=== PATIENT | male | born 1995 | race Caucasian/White ===

== ENCOUNTER 2016-12-18 23:50 | Emergency (ER) | payer SELFPAY ==
[2016-12-19] VITALS: TEMP 99
[2016-12-19] MEDS ORDERED: KETOROLAC 30 MG/ML 1 ML VIAL IVP STA (00:11)
[2016-12-19 00:21] LABS: Basophils # (A) 0.1 k/uL (0-0.2); Basophils % (A) 0 %; CH 29.9; CHCM 34.9; Eosinophils # (A) 0.4 k/uL (0-0.7); Eosinophils % (A) 3 %; HDW 2.47; HGB 15.6 gm/dL (13.0-17.5); Luc # (Auto) 0.17; Luc % (Auto) 1; Lymphocytes # (A) 2.8 k/uL (1.0-4.8); Lymphocytes % (A) 21 %; MCH 29.9 pg (25.0-35.0); MCHC 34.7 g/dL (31.0-37.0); MCV 86.1 fL (80.0-100.0); Mean Platelet Volume 7.2; Monocytes # (A) 0.7 k/uL (0-1.0); Monocytes % (A) 6 %; Neutrophils # (A) 9.3 k/uL (1.3-7.7); Neutrophils % (A) 69 %; RBC 5.23 m/uL (4.30-5.90); RDW 13.3 % (11.5-15.5); WBC 13.5 k/uL (3.8-10.6); WBC (Perox) 13.64
--- NOTE | 2016-12-19 00:27 | ED ---
Abdominal Pain HPI - General Chief Complaint: Abdominal Pain Stated Complaint: Abd Pain Time Seen by Provider: 12/19/16 00:00 Source: patient, RN notes reviewed, old records reviewed Mode of arrival: ambulatory Limitations: no limitations - History of Present Illness Initial Comments: This is a 21-year-old male presents emergency Department with intermittent left lower quadrant pain. She reports that he's had pain for the past 3 days. Patient reports that will come and go with different movements. He reports that sometimes he will be descending at work and occur. Patient reports that he works at an [employer] line And is always running in on the ago. Patient denies any dysuria or hematuria or changes in bowel movements including constipation or diarrhea. Patient states that he's never had any problems like this in the past. He reports that he is in relatively good health denies any significant past medical history. Patient denies any recent fever, chills, shortness of breath, chest pain, back pain, abdominal pain, nausea vomiting, numbness or tingling, dysuria or hematuria, constipation or diarrhea, headaches or visual changes, or any other current symptoms - Related Data Home Medications Medication Instructions Recorded Confirmed No Known Home Medications [No 12/19/16 12/19/16 Known Home Medications] Allergies Allergy/AdvReac Type Severity Reaction Status Date / Time No Known Allergies Allergy Verified 12/19/16 00:00 Review of Systems ROS Statement: Those systems with pertinent positive or pertinent negative responses have been documented in the HPI. ROS Other: All systems not noted in ROS Statement are negative. Past Medical History Past Medical History: No Reported History History of Any Multi-Drug Resistant Organisms: None Reported Past Surgical History: No Surgical Hx Reported Past Psychological History: Anxiety, Bipolar Smoking Status: Current every day smoker Past Alcohol Use History: Heavy, Occasional Past Drug Use History: Marijuana General Exam - General Exam Comments Initial Comments: Well-appearing 21-year-old male. No distress. Limitations: no limitations General appearance: alert, in no apparent distress Head exam: Present: atraumatic, normocephalic, normal inspection Eye exam: Present: normal appearance, PERRL, EOMI. Absent: scleral icterus, conjunctival injection, periorbital swelling ENT exam: Present: normal exam, mucous membranes moist Neck exam: Present: normal inspection. Absent: tenderness, meningismus, lymphadenopathy Respiratory exam: Present: normal lung sounds bilaterally. Absent: respiratory distress, wheezes, rales, rhonchi, stridor Cardiovascular Exam: Present: regular rate, normal rhythm, normal heart sounds. Absent: systolic murmur, diastolic murmur, rubs, gallop, clicks GI/Abdominal exam: Present: soft, tenderness (Mild left lower quadrant tenderness. Palpation. Patient states that he has no pain at this time without deep palpation.), normal bowel sounds. Absent: distended, guarding, rebound, rigid Extremities exam: Present: normal inspection, full ROM, normal capillary refill. Absent: tenderness, pedal edema, joint swelling, calf tenderness Back exam: Present: normal inspection Neurological exam: Present: alert, oriented X3, CN II-XII intact Psychiatric exam: Present: normal affect, normal mood Skin exam: Present: warm, dry, intact, normal color. Absent: rash Course Vital Signs 12/18/16 23:58 Temperature 99.0 F Pulse Rate 119 H Respiratory 18 Rate Blood Pressure 137/63 O2 Sat by Pulse 97 Oximetry Medical Decision Making - Medical Decision Making This is a 21 mL presenting emergency department with intermittent left lower quadrant pain for the past 2 days. Patient has emergency department tachycardic and heart rate of 119. He reports that he's always this time is probably from walking into the emergency department. Patient has no fever at this time. Patient reports that he has no pain and left lower quadrant at this time. He reports is intermittent will certain movements. He reports he pulled muscle. Discussed with the patient the possibility of being a possible kidney stone or irritation of the bowel. Patient was given IV fluids and urinalysis obtained. Patient's lab work is essentially benign. No evidence of blood in the urine. Mild leukocyte elevation of 13.5. Patient has no tenderness to palpation after reevaluation. Discussed with the patient that given the length of symptoms and ot necessarily concerned with the white blood cell count. Discussed to monitor for any signs of fevers or worsening condition and to return to this facility. Patient agrees with this. Patient is history plan will comply. Return parameters were discussed. Discussed this case with Dr. Henderson. - Lab Data Result diagrams: 12/19/16 00:05 12/19/16 00:05 Lab Results 12/19/16 12/19/16 12/19/16 Range/Units 00:05 00:05 00:05 WBC 13.5 H (3.8-10.6) k/uL RBC 5.23 (4.30-5.90) m/uL Hgb 15.6 (13.0-17.5) gm/dL Hct 45.0 (39.0-53.0) % MCV 86.1 (80.0-100.0) fL MCH 29.9 (25.0-35.0) pg MCHC 34.7 (31.0-37.0) g/dL RDW 13.3 (11.5-15.5) % Plt Count 250 (150-450) k/uL Neutrophils % 69 % Lymphocytes % 21 % Monocytes % 6 % Eosinophils % 3 % Basophils % 0 % Neutrophils # 9.3 H (1.3-7.7) k/uL Lymphocytes # 2.8 (1.0-4.8) k/uL Monocytes # 0.7 (0-1.0) k/uL Eosinophils # 0.4 (0-0.7) k/uL Basophils # 0.1 (0-0.2) k/uL Sodium 140 (137-145) mmol/L Potassium 3.7 (3.5-5.1) mmol/L Chloride 106 (98-107) mmol/L Carbon Dioxide 23 (22-30) mmol/L Anion Gap 11 mmol/L BUN 24 H (9-20) mg/dL Creatinine 0.90 (0.66-1.25) mg/dL Est GFR (MDRD) Af Amer >60 (>60 ml/min/1.73 sqM) Est GFR (MDRD) Non-Af >60 (>60 ml/min/1.73 sqM) Glucose 94 (74-99) mg/dL Calcium 9.4 (8.4-10.2) mg/dL Total Bilirubin 0.4 (0.2-1.3) mg/dL AST 47 (17-59) U/L ALT 46 (21-72) U/L Alkaline Phosphatase 78 (38-126) U/L Total Protein 6.8 (6.3-8.2) g/dL Albumin 4.5 (3.5-5.0) g/dL Amylase 42 (30-110) U/L Lipase 87 (23-300) U/L Urine Color Yellow Urine Appearance Clear (Clear) Urine pH 5.5 (5.0-8.0) Ur Specific [place] 1.024 (1.001-1.035) Urine Protein Negative (Negative) Urine Glucose (UA) Negative (Negative) Urine Ketones 1+ H (Negative) Urine Blood Negative (Negative) Urine Nitrite Negative (Negative) Urine Bilirubin Negative (Negative) Urine Urobilinogen <2.0 (<2.0) mg/dL Ur Leukocyte Esterase Negative (Negative) Disposition Clinical Impression: Intermittent left lower quadrant abdominal pain Disposition: HOME SELF-CARE Condition: Good Instructions: Abdominal Pain (ED) Additional Instructions: rest, increase fluids. Monitor for any signs of fever or worsening symptoms or return to emergency department. Follow-up with her primary care provider. Also take Motrin or Tylenol for pain. Referrals: None,Stated [Primary Care Provider] - 1-2 days Leticia Davison MD [STAFF PHYSICIAN] - 1-2 days Time of Disposition: 01:09
[2016-12-19 00:29] LABS: Appearance,Urine Clear (Clear); Bilirubin,Urine Negative (Negative); Glucose,Urine (UA) Negative (Negative); Ketones,Urine 1+ (Negative); Leukocyte Esterase,Urine Negative (Negative); Nitrite,Urine Negative (Negative); PH, Urine 5.5 (5.0-8.0); Protein,Urine Negative (Negative); Specific Gravity,Urine 1.024 (1.001-1.035); UA Billing (MACRO vs. MICRO) CHEM; Urobilinogen,Urine <2.0 mg/dL (<2.0)
[2016-12-19 00:30] LABS: ALT 46 U/L (21-72); AST 47 U/L (17-59); Alkaline Phosphatase 78 U/L (38-126); Amylase 42 U/L (30-110); Anion Gap 11 mmol/L; Blood Urea Nitrogen 24 mg/dL (9-20); Calcium 9.4 mg/dL (8.4-10.2); Carbon Dioxide 23 mmol/L (22-30); Chloride 106 mmol/L (98-107); Glucose 94 mg/dL (74-99); Non-African American GFR(MDRD) >60 (>60 ml/min/1.73 sqM); Potassium 3.7 mmol/L (3.5-5.1); Sodium 140 mmol/L (137-145); Total Bilirubin 0.4 mg/dL (0.2-1.3); Total Protein 6.8 g/dL (6.3-8.2)
--- NOTE | 2016-12-19 01:17 | XR ---
EXAM: XR Abdomen, 1 View. CLINICAL HISTORY: Reason: abdominal pain TECHNIQUE: Frontal supine view of the abdomen/pelvis. COMPARISON: No relevant prior studies available. FINDINGS: Gastrointestinal tract: Unremarkable. No dilation. Bones: Unremarkable. No acute fracture. IMPRESSION: Normal abdomen and pelvis.
[2016-12-19 01:33] VITALS: BP 130/60; PULSE 86; RESP 16
== END 2016-12-19 01:33 | disposition home or self-care (01) ==
LOC: EC 23:50
DX: R10.32 Left lower quadrant pain (principal); D72.829 Elevated white blood cell count, unspecified; R00.0 Tachycardia, unspecified; F17.200 Nicotine dependence, unspecified, uncomplicated
CPT/HCPCS: 36415; 80053; 82150; 83690; 85025; 81003; 74000; 99284; 96374; J1885

== ENCOUNTER → 2017-02-20 | Outpatient (CLI) | payer BC ==
--- NOTE | 2017-02-20 09:42 | XR ---
Lumbar spine HISTORY: Low back pain 3 views of the lumbar spine, no comparisons There is a spinal curvature which could be positional centered at approximately L3. Lumbar vertebral bodies show preserved height and alignment. Disc spaces are maintained. There may be sacralization of L5. Bone mineralization is maintained. IMPRESSION: There may be scoliosis, sacralization of L5 as described. Lumbar MRI may be of benefit.
== END | disposition home or self-care (01) ==
LOC: RADXRMAIN 09:22
PROVIDERS: ATTEND Physician Assistant
DX: M54.5 Low back pain (principal)
CPT/HCPCS: 72100

== ENCOUNTER 2017-04-08 22:02 | Inpatient (IN) | payer BC, OTHER ==
[2017-04-08] MEDS ORDERED: HYDROcodone/APAP 5-325MG 1 EACH TAB PO STA (22:51)
[2017-04-08] MEDS ORDERED: IBUPROFEN 400 MG TAB PO STA (22:51)
--- NOTE | 2017-04-08 22:57 | ED ---
Upper Extremity HPI - General Chief Complaint: Extremity Injury, Upper Stated Complaint: Elbow Pain Time Seen by Provider: 04/08/17 22:25 Source: patient Mode of arrival: ambulatory Limitations: no limitations - History of Present Illness Initial Comments: This patient is 21-year-old man who presents to be evaluate for right elbow injury. The patient states that he had been playing with family member when he tripped and fell landing on a flexed right elbow. Patient states that he felt a pop at the time but the pain was not severe. He states that when he woke he noted significant swelling developing which worsened the next day and he was not able to sleep last night. Patient states that the pain is moderately severe , constant, worse if he attempts to flex or extend the elbow. He is holding it in about 90 and states that that's wears comfortable. Patient denies any other injuries or any associated symptoms. He does not have any weakness or numbness distal to the injury. He denies previous injury or surgery to the right arm. MD Complaint: Injury to:: right, elbow -: days(s) Other Extremity Injury: Elbow: Right Other Injuries: none Handedness: right Place: outdoors Improves With: immobilization Worsens With: movement of extremity Context: fall Associated Symptoms: heard/felt popping sensat - Related Data Home Medications Medication Instructions Recorded Confirmed No Known Home Medications [No 12/19/16 04/08/17 Known Home Medications] Allergies Allergy/AdvReac Type Severity Reaction Status Date / Time No Known Allergies Allergy Verified 04/08/17 22:33 Review of Systems ROS Statement: Those systems with pertinent positive or pertinent negative responses have been documented in the HPI. ROS Other: All systems not noted in ROS Statement are negative. Musculoskeletal: Reports: joint swelling, arthralgia Neurological: Denies: weakness, numbness, paresthesias Past Medical History Past Medical History: No Reported History History of Any Multi-Drug Resistant Organisms: None Reported Past Surgical History: No Surgical Hx Reported Past Psychological History: Anxiety, Bipolar Smoking Status: Current every day smoker Past Alcohol Use History: Occasional Past Drug Use History: Marijuana General Exam Limitations: no limitations General appearance: alert, in no apparent distress Head exam: Present: atraumatic, normocephalic Cardiovascular Exam: Present: other (There is a strong right radial pulse and normal capillary refill throughout the right upper extremity.) Right Shoulder Exam: Present: normal inspection, full ROM. Absent: tenderness, swelling Upper Arm exam: Present: normal inspection Elbow exam: Present: tenderness, swelling, ecchymosis. Absent: full ROM ( Patient resists the range of motion exam at the right elbow, preferring to hold his elbow and about 90 of flexion.), laceration, deformity, crepitus, dislocation, erythema, effusion Forearm Wrist exam: Present: swelling. Absent: tenderness Hand Wrist exam: Present: normal inspection, full ROM. Absent: tenderness, swelling, abrasion, laceration, ecchymosis, deformity Vascular: Present: normal capillary refill. Absent: vascular compromise Neurological exam: Present: alert, other (Sensory and motor function normal throughout the right hand). Absent: motor sensory deficit Course Vital Signs 04/08/17 04/08/17 04/08/17 22:20 22:50 23:04 Temperature 100.9 F H 98.6 F 99.6 F Pulse Rate 89 69 Respiratory 18 20 Rate Blood Pressure 128/66 131/62 O2 Sat by Pulse 99 100 Oximetry 04/09/17 02:00 Temperature 98.7 F Pulse Rate 91 Respiratory 16 Rate Blood Pressure 138/61 O2 Sat by Pulse 99 Oximetry Medical Decision Making - Lab Data Result diagrams: 04/09/17 00:30 04/09/17 00:30 Lab Results 04/09/17 04/09/17 Range/Units 00:30 00:30 WBC 12.6 H (3.8-10.6) k/uL RBC 4.83 (4.30-5.90) m/uL Hgb 14.5 (13.0-17.5) gm/dL Hct 41.8 (39.0-53.0) % MCV 86.6 (80.0-100.0) fL MCH 30.0 (25.0-35.0) pg MCHC 34.7 (31.0-37.0) g/dL RDW 13.2 (11.5-15.5) % Plt Count 257 (150-450) k/uL Neutrophils % 66 % Lymphocytes % 22 % Monocytes % 6 % Eosinophils % 4 % Basophils % 0 % Neutrophils # 8.3 H (1.3-7.7) k/uL Lymphocytes # 2.8 (1.0-4.8) k/uL Monocytes # 0.7 (0-1.0) k/uL Eosinophils # 0.6 (0-0.7) k/uL Basophils # 0.1 (0-0.2) k/uL ESR 16 H (0-15) mm/hr Sodium 139 (137-145) mmol/L Potassium 4.2 (3.5-5.1) mmol/L Chloride 106 (98-107) mmol/L Carbon Dioxide 24 (22-30) mmol/L Anion Gap 9 mmol/L BUN 14 (9-20) mg/dL Creatinine 0.70 (0.66-1.25) mg/dL Est GFR (MDRD) Af Amer >60 (>60 ml/min/1.73 sqM) Est GFR (MDRD) Non-Af >60 (>60 ml/min/1.73 sqM) Glucose 94 (74-99) mg/dL Calcium 9.0 (8.4-10.2) mg/dL C-Reactive Protein 63.8 H (<10.0) mg/L Disposition Clinical Impression: Cellulitis, Elbow injury Disposition: ADMITTED IP TO THIS HOSP Condition: Fair Referrals: None,Stated [Primary Care Provider] - 1-2 days
--- NOTE | 2017-04-08 23:49 | XR ---
EXAM: XR Right Elbow Complete, 3 or More Views CLINICAL HISTORY: Reason: right elbow pain from wrestling, no prior , pt unable to straighten arm TECHNIQUE: Frontal, lateral and oblique views of the right elbow. COMPARISON: None FINDINGS: Bones/joints: No definite acute fracture. No dislocation identified. Small joint effusion. Soft tissues: Prominent soft tissue edema about the elbow. IMPRESSION: Although no definite fracture is identified, small joint effusion suggests evidence of elbow occult fracture. Consider follow-up exam within 7-10 days to reevaluate if clinically indicated. No dislocation. Prominent soft tissue swelling about the right elbow.
[2017-04-09 00:44] LABS: Basophils # (A) 0.1 k/uL (0-0.2); Basophils % (A) 0 %; CH 29.4; CHCM 34.1; Eosinophils # (A) 0.6 k/uL (0-0.7); Eosinophils % (A) 4 %; HCT 41.8 % (39.0-53.0); HDW 2.57; HGB 14.5 gm/dL (13.0-17.5); Luc # (Auto) 0.14; Luc % (Auto) 1; Lymphocytes # (A) 2.8 k/uL (1.0-4.8); Lymphocytes % (A) 22 %; MCHC 34.7 g/dL (31.0-37.0); MCV 86.6 fL (80.0-100.0); Monocytes # (A) 0.7 k/uL (0-1.0); Monocytes % (A) 6 %; Neutrophils # (A) 8.3 k/uL (1.3-7.7); Neutrophils % (A) 66 %; RBC 4.83 m/uL (4.30-5.90); RDW 13.2 % (11.5-15.5); WBC 12.6 k/uL (3.8-10.6)
[2017-04-09 00:56] LABS: Anion Gap 9 mmol/L; Blood Urea Nitrogen 14 mg/dL (9-20); C Reactive Protein 63.8 mg/L (<10.0); Carbon Dioxide 24 mmol/L (22-30); Chloride 106 mmol/L (98-107); Glucose 94 mg/dL (74-99); Non-African American GFR(MDRD) >60 (>60 ml/min/1.73 sqM); Potassium 4.2 mmol/L (3.5-5.1); Sodium 139 mmol/L (137-145)
[2017-04-09] MEDS ORDERED: NAFCILLIN 2 GM in SODIUM CHLORIDE 0.9% 100 ML IVPB STA (01:26)
[2017-04-09] MEDS ORDERED: IV VANCOMYCIN PER PHARMACY 1 EACH MISC MISCELLANE PRN ×2 (01:26→09:56)
[2017-04-09 01:28] LABS: Erythrocyte Sedimentation Rate 16 mm/hr (0-15)
[2017-04-09] MEDS ORDERED: NALOXONE 0.4 MG/ML 1 ML VIAL IV PRN (02:33)
[2017-04-09] MEDS ORDERED: HYDROcodone/APAP 5-325MG 1 EACH TAB PO PRN (02:33)
[2017-04-09 03:32] VITALS: BMI 30.7
[2017-04-09] MEDS: VANCOMYCIN 1,500 MG in SODIUM CHLORIDE 0.9% 250 ML IVPB SCH ×3 (03:32→21:23)
[2017-04-09] MEDS: IBUPROFEN 400 MG TAB PO SCH ×3 (03:40→21:25)
--- NOTE | 2017-04-09 03:57 | P.HPIM ---
History of Present Illness H&P Date: 04/09/17 Chief Complaint: Right elbow pain and swelling 21-year-old male without any significant medical problems came to emergency department complaining of significant swelling and pain in his right elbow. This started approximately day or 2 prior to admission. 3 days prior to the admission patient fell on his right elbow and injured. He did not seek initially medical attention. 2 days ago the elbow started swelling and felt frozen and stiff and patient was not able to make any movements in the elbow. No alleviating factors. He did not try anything for pain. [place] warm and swelling extend only to his right hand. Patient denies any breakage of the skin abrasions or wounds. Denies any drainage. Denies any fever or chills. In the emergency department he can't temperature recorded at 99.7. X-ray of the right elbow show effusion with possible fracture. He denies any numbness or pain in his right hand or shoulder. Review of Systems Constitutional: Denies chills, Denies fatigue, Denies fever, Denies sweats Ears, nose, mouth and throat: Denies headache Cardiovascular: Denies chest pain, Denies shortness of breath Respiratory: Denies cough Gastrointestinal: Denies abdominal pain Musculoskeletal: Reports as per HPI Musculoskeletal: right: as per HPI, elbow pain, elbow stiffness, elbow swelling Past Medical History Past Medical History: No Reported History History of Any Multi-Drug Resistant Organisms: None Reported Past Surgical History: No Surgical Hx Reported Past Anesthesia/Blood Transfusion Reactions: No Reported Reaction Past Psychological History: Anxiety, Bipolar Smoking Status: Current every day smoker Past Alcohol Use History: Occasional Past Drug Use History: Marijuana - Past Family History Father Additional Family Medical History / Comment(s): no known hx Medications and Allergies Home Medications Medication Instructions Recorded Confirmed Type No Known Home Medications [No 12/19/16 04/08/17 History Known Home Medications] Allergies Allergy/AdvReac Type Severity Reaction Status Date / Time No Known Allergies Allergy Verified 04/08/17 22:33 Physical Exam Vitals: Vital Signs Temp Pulse Pulse Resp BP BP Pulse Ox 04/09/17 03:17 97.8 F 70 18 106/56 95 04/09/17 03:01 98.2 F 78 16 110/60 99 04/09/17 02:00 98.7 F 91 16 138/61 99 04/08/17 23:04 99.6 F 04/08/17 22:50 98.6 F 69 20 131/62 100 04/08/17 22:20 100.9 F H 89 18 128/66 99 Intake and Output 04/08/17 04/08/17 04/09/17 14:59 22:59 06:59 Other: Weight 99.79 kg 99.79 kg Patient Weight 04/09/17 06:59 Weight 99.79 kg - Constitutional General appearance: cooperative, no acute distress - EENT Eyes: anicteric sclerae, EOMI, PERRLA - Neck Neck: normal ROM - Respiratory Respiratory: bilateral: CTA - Cardiovascular Rhythm: regular Heart sounds: normal: S1, S2 - Gastrointestinal General gastrointestinal: normal bowel sounds, no organomegaly, soft - Psychiatric Psychiatric: A&O x's 3, appropriate affect Right elbow: He is in flexed position, stiff with inability to perform any range of motion. Tender especially over THE AREA. SWOLLEN WARM WITH ERYTHEMA OVER THE OLECRANON AREA. SOME BRUISING AND SWELLING EXTENDING OVER TO THE RIGHT HAND. PULSES RADIAL PRESENT. Results CBC & Chem 7: 04/09/17 00:30 04/09/17 00:30 Labs: Abnormal Lab Results - Last 24 Hours (Table) 04/09/17 04/09/17 Range/Units 00:30 00:30 WBC 12.6 H (3.8-10.6) k/uL Neutrophils # 8.3 H (1.3-7.7) k/uL ESR 16 H (0-15) mm/hr C-Reactive Protein 63.8 H (<10.0) mg/L Thrombosis Risk Factor Assmnt - DVT/VTE Prophylaxis DVT/VTE Prophylaxis: Mechanical Prophylaxis ordered, Low risk, early ambulation encouraged - Choose All That Apply Each Factor Represents 1 point: Obesity (BMI >25) Thrombosis Risk Factor Assessment Total Risk Factor Score: 1 Thrombosis Risk Factor Assessment Level: Low Risk Assessment and Plan (1) Elbow injury Narrative/Plan: Elbow injury and fracture with effusion rule out olecranon bursitis. For now we will continue vancomycin and consult orthopedic service for evaluation of the elbow Pain control Elevate right arm Status: Acute Time with Patient: Less than 30
[2017-04-09] MEDS ORDERED: NAFCILLIN 2 GM in SODIUM CHLORIDE 0.9% 100 ML IVPB SCH (08:00)
[2017-04-09] MEDS: SODIUM CHLORIDE 0.9% 1,000 ML IV SCH (08:43)
[2017-04-09] MEDS: FAMOTIDINE 20 MG TAB PO SCH ×2 (08:44→21:23)
--- NOTE | 2017-04-09 11:38 | P.CNOR ---
History of Present Illness - [facility] Consult date: 04/09/17 Consult reason: joint pain History of present illness: This is a 21-year-old male who was seen and evaluated today [facility]. Apparently the patient reported the hospital late last night due to increasing pain and swelling in his right elbow. He states that about 3 days ago, he had a fall on the elbow. He states that he was chasing his nephew around the yard when he fell directly onto the elbow. He believes that the elbow was in a flexed position. He noticed immediate pain involving the elbow, but was able to move it with minimal difficulty. Over the last 2 days, he's noticed increasing pain and swelling, and inability to move the elbow. Patient denies any previous trauma orthopedic surgery to the right upper extremity. Imaging and lab tests were done. Images demonstrated a likely effusion around the elbow. There are no definitive acute fractures noted. His lab results revealed an elevated white blood cell count along with a CRP and sed rate. He was admitted to the observation unit for further workup, possible cellulitis involving the elbow. At bedside today, the patient is sleeping he is awoken with minimal difficulty. He describes pain surrounding the whole elbow. He keeps the arm bent at about 90. Any type of motion reproduces pain around the elbow. He states that it was a lot more swollen yesterday, but since this morning he's noticed decreased. His range of motion still is diminished. He denies any paresthesias involving the right upper extremity. He denies any recent fever chills. A size the fall, he denies any other traumatic event involving the right elbow. He denies any significant hand and wrist along with shoulder pain on the right side. Review of Systems Constitutional: Reports as per HPI Past Medical History Past Medical History: No Reported History History of Any Multi-Drug Resistant Organisms: None Reported Past Surgical History: No Surgical Hx Reported Past Anesthesia/Blood Transfusion Reactions: No Reported Reaction Past Psychological History: Anxiety, Bipolar Smoking Status: Current every day smoker Past Alcohol Use History: Occasional Past Drug Use History: Marijuana - Past Family History Father Additional Family Medical History / Comment(s): no known hx Medications and Allergies Home Medications Medication Instructions Recorded Confirmed Type No Known Home Medications [No 12/19/16 04/08/17 History Known Home Medications] Allergies Allergy/AdvReac Type Severity Reaction Status Date / Time coconut AdvReac Itching Verified 04/09/17 06:43 Physical Examination Right upper extremity: There are no obvious open lesions present throughout the right upper extremity. Obvious swelling present around the right elbow. I'm unable to appreciate any significant fluctuance over the olecranon bursa. There is some erythema noted on the medial aspect of the arm, both slightly proximal and distal to the elbow itself. There is some warmth noted on the medial and posterior aspect of the elbow. He's tender with palpation throughout the elbow, most significant clean noted along the medial epicondyle and the olecranon. His range of motion is very limited. Elbow is most comfortable at 90, I'm able to extend and flex maybe [address] before reproducing significant pain. His sensation to light touch throughout the upper extremities intact. His radial pulses 2+. He is able to wiggle all the fingers with minimal difficulty. Extension of the wrist does reproduce pain in the elbow. He denies any pain involving the right shoulder, and his motion is intact. Results - Labs Labs: Abnormal Lab Results - Last 24 Hours (Table) 04/09/17 04/09/17 Range/Units 00:30 00:30 WBC 12.6 H (3.8-10.6) k/uL Neutrophils # 8.3 H (1.3-7.7) k/uL ESR 16 H (0-15) mm/hr C-Reactive Protein 63.8 H (<10.0) mg/L H & H 04/09/17 Range/Units 00:30 Hgb 14.5 (13.0-17.5) gm/dL Hct 41.8 (39.0-53.0) % Result Diagrams: 04/09/17 00:30 04/09/17 00:30 - Diagnostic results Elbow x-ray: report reviewed, image reviewed Assessment and Plan Plan: Imaging: Images and reports reviewed. There is no obvious acute fracture noted. No obvious dislocation present. According to the report, there is evidence of an effusion involving the right elbow joint. Assessment: 1. Right elbow pain 2. Right elbow swelling 3. Possible cellulitis versus septic right elbow versus hemarthrosis 4. Status post fall from standing Plan: 1. I was able to discuss this case, including the physical exam findings and imaging studies might any Dr. Bautista. For further evaluation of the elbow joint , an MRI without contrast was ordered stat. There is possibility of a septic right elbow, even though this would be rare finding. This just may be a severe cellulitis versus hemarthrosis due to the trauma. 2. Await MRI of the right elbow 3. Nothing by mouth 4. Pain control, utilize ice and elevating techniques 5. Medical recommendations 6. Further recommendations to follow Time with Patient: Less than 30
--- NOTE | 2017-04-09 11:45 | P.PN ---
Subjective Principal diagnosis: right elbow pain Patient is a 21-year-old male with no significant past medical history who presented with complaints of right elbow swelling after suffering a fall from standing 2 days ago. He has had increasing swelling and pain over his right elbow. In the ER he underwent extensive evaluation. His initial x- ray showed diffuse subcutaneous edema but no fracture. He did have a fever of 100.9 in the ER and a white blood cell count of 12.6. His ESR and CRP were elevated. He was given a dose of vancomycin and admitted as observation. He was seen by ortho and an MRI of the right elbow was ordered as there is concern for septic bursitis. Patient seen and examined at bedside. He is still having pain in his right elbow. He is unable to tolerate passive or active range of motion secondary to pain. He states that his pain medications have been decreasing the pain but is still not at what he considers to be a tolerable level. He denies any nausea, vomiting, diarrhea or constipation. Objective - Vital Signs Vital signs: Vital Signs Temp 98.8 F 04/09/17 07:38 Pulse 58 L 04/09/17 07:38 Resp 16 04/09/17 08:00 BP 105/44 04/09/17 07:38 Pulse Ox 99 04/09/17 07:38 Intake & Output 04/08/17 04/09/17 04/09/17 18:59 06:59 18:59 Intake Total 236 Balance 236 Weight 99.79 kg Intake: Oral 236 Other: Voiding Method Toilet Toilet # Voids 2 - Exam General: non toxic, mild distress, appears at stated age Derm: no rashes, no lesions Head: atraumatic, normocephalic, symmetric Eyes: EOMI, no lid lag, anicteric sclera ENT: no post nasal drip, no thrush Mouth: no lip lesion, mucus membranes moist Cardiovascular: S1S2 reg, no murmur, positive posterior tibial pulse bilateral, Lungs: CTA bilateral, no rhonchi, no rales , no accessory muscle use Abdominal: soft, nontender to palpation, no guarding, no appreciable organomegaly Ext: Right elbow with significant edema, tender to palpation, no erythema noted , mild warmth, decreased range of motion both active and passive, no gross muscle atrophy, no lower extremity edema, no contractures Neuro: CN II-XI grossly intact, no focal neuro deficits Psych: Alert, oriented, appropriate affect - Labs CBC & Chem 7: 04/09/17 00:30 04/09/17 00:30 Labs: Abnormal Lab Results - Last 24 Hours (Table) 04/09/17 04/09/17 Range/Units 00:30 00:30 WBC 12.6 H (3.8-10.6) k/uL Neutrophils # 8.3 H (1.3-7.7) k/uL ESR 16 H (0-15) mm/hr C-Reactive Protein 63.8 H (<10.0) mg/L Assessment and Plan Plan: #Cellulitis with sepsis of the right elbow, concern for septic bursitis -Continue with vancomycin, pharmacy to dose -Increase [place] and add morphine to help with pain control -Orthopedic recommendations appreciated, await MRI -Infectious disease consultation currently pending #Tobacco abuse -Sensation recommended -Nicotine patch DVT prophylaxis: SCDs with possible surgery Discussed with: Patient and nursing Anticipated discharge: 24-48 hours, pending MRI Anticipated discharge place: home A total of 35 minutes was spent on the care of this complex patient more than 50 % of the time was spent in counseling and care coordination.
[2017-04-09] MEDS ORDERED: HYDROcodone/APAP 10-325MG 1 EACH TAB PO PRN (11:46)
[2017-04-09] MEDS ORDERED: MORPHINE SULFATE 2 MG/ML SYRINGE IVP PRN (11:46)
--- NOTE | 2017-04-09 20:52 | MR ---
EXAMINATION TYPE: MR elbow RT wo con DATE OF EXAM: 04/09/2017 COMPARISON: NONE HISTORY: Severe Rt elbow swelling and pain, Tripped and fell on RT Elbow Standard multiplanar, multisequence MRI departmental protocol Multiplanar, multisequence images of the right elbow were acquired. FINDINGS: There is extensive subcutaneous edema around the entire elbow. There is evidence of a large elbow joint effusion. There is elevation of the posterior fat pad. The triceps tendon is intact. Dis solo humerus appears intact. Radial head is intact. The elbow joint is anatomic. The biceps tendon estuardo ears intact. There is abnormal increased signal in the soft tissues in the antecubital fossa. Brachia lis tendon is intact. IMPRESSION: Large elbow joint effusion. Extensive subcutaneous edema around the elbow joint. Extensive soft tissu e edema in the antecubital fossa. The appearance is nonspecific. This could relate to synovitis. No f racture seen.
[2017-04-09] MEDS: NICOTINE 21MG/24HR PATCH TRANSDERM SCH (21:23)
--- NOTE | 2017-04-09 23:45 | P.CONS ---
History of Present Illness - Reason for Consult Consult date: 04/09/17 - Chief Complaint pain right elbow - History of Present Illness 21 year old male with bipolar disorder was playing with his nephew when he suffered a fall on ground which was soil not concrete or blacktop. Has had rapid swelling and worsening of the arm and presented to the ER and admitted for evaluation concern to fracture, abscess or hemarthrosis. With a cellulitis like issue ID consult requested Review of Systems Constitutional: Denies chills, Denies fever Eyes: denies blurred vision, denies pain Ears, nose, mouth and throat: Denies headache, Denies sore throat Cardiovascular: Denies chest pain, Denies shortness of breath Respiratory: Denies cough Gastrointestinal: Denies abdominal pain, Denies diarrhea, Denies nausea, Denies vomiting Musculoskeletal: Reports limitation of motion (all of right elbow), Reports myalgias, Reports redness of joints Integumentary: Reports as per HPI Neurological: Denies numbness, Denies weakness Psychiatric: Denies suicidal ideation (bipolar) Endocrine: Denies fatigue, Denies weight change Hematologic/Lymphatic: Denies easy bruising, Denies lymphadenopathy Past Medical History Past Medical History: No Reported History History of Any Multi-Drug Resistant Organisms: None Reported Past Surgical History: No Surgical Hx Reported Past Anesthesia/Blood Transfusion Reactions: No Reported Reaction Past Psychological History: Anxiety, Bipolar Additional Psychological History / Comment(s): single. female sexual partner. 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 no . no travel. pet dog in home Smoking Status: Current every day smoker Past Alcohol Use History: Occasional Past Drug Use History: Marijuana (denies IDU) - Past Family History Father Additional Family Medical History / Comment(s): no known hx Medications and Allergies Home Medications and Allergies Comment(s): Current Medications Hydrocodone Bitart/Acetaminophen ([place] 10) 1 each PO Q6H PRN PRN Reason: Pain Famotidine (Pepcid) 20 mg PO BID RONNIE Last Admin: 04/09/17 21:23 Dose: 20 mg Vancomycin HCl 1,500 mg/ (Sodium Chloride) 250 mls @ 125 mls/hr IVPB Q8H RONNIE Last Admin: 04/09/17 21:23 Dose: 125 mls/hr Sodium Chloride (Saline 0.9%) 1,000 mls @ 20 mls/hr IV .Q24H RONNIE Last Admin: 04/09/17 08:43 Dose: Not Given Ibuprofen (Motrin) 800 mg PO Q8H [facility] Last Admin: 04/09/17 21:25 Dose: 800 mg Miscellaneous Information (Vancomycin Trough Due) 1 each MISCELLANE ONCE ONE Stop: 04/10/17 10:01 Morphine Sulfate (Morphine Sulfate (Inj)) 2 mg IVP Q4H PRN PRN Reason: SEVERE Pain/Discomfort Naloxone HCl (Narcan) 0.2 mg IV Q2M PRN PRN Reason: Opioid Reversal Nicotine (Habitrol 21mg/24hr Patch) 1 patch TRANSDERM DAILY [facility] Last Admin: 04/09/17 21:23 Dose: 1 patch Home Medications Medication Instructions Recorded Confirmed Type No Known Home Medications [No 12/19/16 04/08/17 History Known Home Medications] Allergies Allergy/AdvReac Type Severity Reaction Status Date / Time coconut AdvReac Itching Verified 04/09/17 06:43 Physical Exam Vitals: Vital Signs Temp Pulse Pulse Resp BP BP Pulse Ox 04/09/17 20:00 98.5 F 97 18 130/71 98 04/09/17 12:00 56 L 16 04/09/17 11:48 98.7 F 56 L 16 135/58 100 04/09/17 08:00 16 04/09/17 07:38 98.8 F 58 L 16 105/44 99 04/09/17 03:41 18 04/09/17 03:17 97.8 F 70 18 106/56 95 04/09/17 03:01 98.2 F 78 16 110/60 99 04/09/17 02:00 98.7 F 91 16 138/61 99 Intake and Output 04/09/17 04/09/17 04/10/17 14:59 22:59 06:59 Intake Total 596 356 Balance 596 356 Intake: Oral 596 356 Other: Voiding Method Toilet Toilet Weight 99.79 kg Patient Weight 04/10/17 06:59 Weight 99.79 kg no fever or chills - Constitutional General appearance: average body habitus, cooperative - EENT Eyes: EOMI Ears: bilateral: normal - Neck Neck: no lymphadenopathy, no thyromegaly Thyroid: bilateral: normal size - Respiratory Respiratory: bilateral: wheezing (scattered) - Cardiovascular Rhythm: regular Heart sounds: normal: S1, S2 Abnormal Heart Sounds: no systolic murmur, no diastolic murmur, no S3 Gallop, no S4 Gallop - Gastrointestinal General gastrointestinal: no organomegaly, soft, no tenderness - Integumentary swelling to the right are from wrist to nealry the shoulder with maximum swelling at the elbow with very poor range of motion tender to touch no open lesions are seen Results CBC & Chem 7: 04/09/17 00:30 04/09/17 00:30 Labs: Abnormal Lab Results - Last 24 Hours (Table) 04/09/17 04/09/17 Range/Units 00:30 00:30 WBC 12.6 H (3.8-10.6) k/uL Neutrophils # 8.3 H (1.3-7.7) k/uL ESR 16 H (0-15) mm/hr C-Reactive Protein 63.8 H (<10.0) mg/L Laboratory Results WBC 12.6 k/uL (3.8-10.6) H 04/09/17 00:30 RBC 4.83 m/uL (4.30-5.90) 04/09/17 00:30 Hgb 14.5 gm/dL (13.0-17.5) 04/09/17 00:30 Hct 41.8 % (39.0-53.0) 04/09/17 00:30 MCV 86.6 fL (80.0-100.0) 04/09/17 00:30 MCH 30.0 pg (25.0-35.0) 04/09/17 00:30 MCHC 34.7 g/dL (31.0-37.0) 04/09/17 00:30 RDW 13.2 % (11.5-15.5) 04/09/17 00:30 Plt Count 257 k/uL (150-450) 04/09/17 00:30 Neutrophils % 66 % 04/09/17 00:30 Lymphocytes % 22 % 04/09/17 00:30 Monocytes % 6 % 04/09/17 00:30 Eosinophils % 4 % 04/09/17 00:30 Basophils % 0 % 04/09/17 00:30 Neutrophils # 8.3 k/uL (1.3-7.7) H 04/09/17 00:30 Lymphocytes # 2.8 k/uL (1.0-4.8) 04/09/17 00:30 Monocytes # 0.7 k/uL (0-1.0) 04/09/17 00:30 Eosinophils # 0.6 k/uL (0-0.7) 04/09/17 00:30 Basophils # 0.1 k/uL (0-0.2) 04/09/17 00:30 ESR 16 mm/hr (0-15) H 04/09/17 00:30 Sodium 139 mmol/L (137-145) 04/09/17 00:30 Potassium 4.2 mmol/L (3.5-5.1) 04/09/17 00:30 Chloride 106 mmol/L (98-107) 04/09/17 00:30 Carbon Dioxide 24 mmol/L (22-30) 04/09/17 00:30 Anion Gap 9 mmol/L 04/09/17 00:30 BUN 14 mg/dL (9-20) 04/09/17 00:30 Creatinine 0.70 mg/dL (0.66-1.25) 04/09/17 00:30 Est GFR (MDRD) Af Amer >60 (>60 ml/min/1.73 sqM) 04/09/17 00:30 Est GFR (MDRD) Non-Af >60 (>60 ml/min/1.73 sqM) 04/09/17 00:30 Glucose 94 mg/dL (74-99) 04/09/17 00:30 Uric Acid 6.1 mg/dL (3.5-8.5) 04/09/17 00:30 Calcium 9.0 mg/dL (8.4-10.2) 04/09/17 00:30 C-Reactive Protein 63.8 mg/L (<10.0) H 04/09/17 00:30 Comments: xray reviewed no fracture with swelling noted no foreign body Assessment and Plan (1) Elbow injury Narrative/Plan: 21 year old male with fall and injury to the right elbow has occurred and is evaluated by orthopedics and MRI requested to evaluate for fracture, abscess, hemarthrosis or other trauma. It will help determine need for surgical intervention Vanco was started and with the trauma would also add ceftazidime with concern to gram negative infection including pseudomonas Elevated crp in keepings with an infection at the site Status: Acute
[2017-04-10] MEDS: IBUPROFEN 400 MG TAB PO SCH ×2 (03:30→11:28)
[2017-04-10] MEDS: VANCOMYCIN 1,500 MG in SODIUM CHLORIDE 0.9% 250 ML IVPB SCH ×3 (03:35→21:31)
[2017-04-10 05:39] LABS: Basophils # (A) 0.1 k/uL (0-0.2); Basophils % (A) 1 %; CHCM 32.3; Eosinophils # (A) 0.5 k/uL (0-0.7); Eosinophils % (A) 6 %; HCT 43.7 % (39.0-53.0); HDW 2.63; HGB 14.3 gm/dL (13.0-17.5); Luc # (Auto) 0.18; Luc % (Auto) 2; Lymphocytes # (A) 3.1 k/uL (1.0-4.8); Lymphocytes % (A) 37 %; MCH 29.6 pg (25.0-35.0); MCHC 32.8 g/dL (31.0-37.0); MCV 90.1 fL (80.0-100.0); Mean Platelet Volume 6.8; Monocytes # (A) 0.5 k/uL (0-1.0); Monocytes % (A) 6 %; Neutrophils % (A) 48 %; RBC 4.85 m/uL (4.30-5.90); RDW 13.2 % (11.5-15.5); WBC 8.2 k/uL (3.8-10.6); WBC (Perox) 8.42
[2017-04-10 05:48] LABS: Anion Gap 8 mmol/L; Blood Urea Nitrogen 10 mg/dL (9-20); Calcium 8.8 mg/dL (8.4-10.2); Carbon Dioxide 22 mmol/L (22-30); Chloride 109 mmol/L (98-107); Glucose 78 mg/dL (74-99); Non-African American GFR(MDRD) >60 (>60 ml/min/1.73 sqM); Potassium 4.3 mmol/L (3.5-5.1); Sodium 139 mmol/L (137-145)
[2017-04-10] MEDS: IV FLUID CONTINUATION 1,000 ML IV ONE ×2 (08:30→17:09)
[2017-04-10] MEDS ORDERED: IV FLUID CONTINUATION 1,000 ML IV ONE ×2 (08:30)
--- NOTE | 2017-04-10 09:04 | P.PN ---
Subjective Principal diagnosis: Right elbow effusion, likely septic arthritis Patient is seen today resting in his hospital bed, he appears comfortable. He continues to have pain involving the right elbow with limited motion. He states that the pain is about the same. He notes that the swelling may be a little bit better. He denies any fevers or chills at this time. Objective - Vital Signs Vital signs: Vital Signs Temp 98.3 F 04/10/17 08:38 Pulse 54 L 04/10/17 08:38 Resp 18 04/10/17 08:38 BP 118/64 04/10/17 08:38 Pulse Ox 99 04/10/17 08:38 Intake & Output 04/09/17 04/10/17 04/10/17 18:59 06:59 18:59 Intake Total 952 Balance 952 Weight 99.79 kg Intake: Oral 952 Other: Voiding Method Toilet Toilet Toilet - Exam Right upper extremity: Notable effusion involving the right elbow, slight improvement since yesterday. Decrease in erythema noted.. Limited motion with regards to the elbow, he remains comfortable at 90 of flexion. Sensation to light touch is intact at extremity, his radial pulses 2+. - Labs CBC & Chem 7: 04/10/17 05:12 04/10/17 05:12 Labs: Abnormal Lab Results - Last 24 Hours (Table) 04/10/17 Range/Units 05:12 Chloride 109 H (98-107) mmol/L Creatinine 0.60 L (0.66-1.25) mg/dL Assessment and Plan Plan: Assessment: 1. Right elbow effusion 2. Likely septic arthritis right elbow 3. Possible right elbow hemarthrosis Plan: 1. MRI results did reveal no acute fractures or dislocations. Evidence of the severe effusion was present. Taking in consideration infectious disease recommendations along with our current physical exam findings lab tests, we'll like to proceed with an incision and drainage along with irrigation procedure of the right elbow this morning. I discussed this with the patient today, he was made aware that any further questions with be answered by Dr. Bautista in the preoperative area. 2. Obtain consent 3. Continue with infectious disease recommendations 4. Pain control 5. Further recommendations after surgery Time with Patient: Less than 30
[2017-04-10] MEDS ORDERED: PROPOFOL 10 MG/ML 20 ML VIAL IV ONE (09:05)
[2017-04-10] MEDS ORDERED: MIDAZOLAM 2 MG/2 ML VIAL ONE (09:05)
[2017-04-10] MEDS ORDERED: HYDROmorphone (PF) 1 MG/ML ONE (09:05)
[2017-04-10] MEDS ORDERED: LIDOCAINE 1% INJ 10MG/ML (20 ML MDV) ONE (09:05)
[2017-04-10] MEDS ORDERED: fentaNYL (PF) 50 MCG/ML 2 ML AMP ONE (09:05)
[2017-04-10] MEDS ORDERED: LACTATED RINGERS 1,000 ML IV ONE (09:27)
[2017-04-10] MEDS ORDERED: HYDROcodone/APAP 5-325MG 1 EACH TAB PO PRN (09:51)
[2017-04-10] MEDS ORDERED: ONDANSETRON 4 MG/2 ML VIAL IVP PRN (09:51)
[2017-04-10] MEDS ORDERED: HYDROmorphone 1 MG/ML 1 ML SYRINGE IVP PRN (09:51)
--- NOTE | 2017-04-10 09:53 | P.OP ---
Date of Procedure: 04/10/17 Preoperative Diagnosis: Right elbow septic arthritis Postoperative Diagnosis: Same Procedure(s) Performed: Arthrotomy right elbow with irrigation and debridement Anesthesia: BERNARDA Surgeon: Erik Bautista Estimated Blood Loss (ml): 10 Pathology: other (Gram stain and cultures) Condition: stable Disposition: PACU Indications for Procedure: The patient's a 21-year-old male who presents with progressive right elbow pain , swelling, along with constitutional symptoms with a past several days who clinically had evidence of a right elbow septic arthritis. A discussion of the risks and benefits of operative intervention was made with the patient. Specific risks of surgery to include persistence of infection, development of blood clots, possible neurovascular injury, and possible need for subsequent procedures was discussed. Informed consent was obtained. Operative Findings: Moderate synovitis/moderate serous effusion Description of Procedure: The patient was brought to the operating room, and after induction of general anesthesia the right upper extremity was prepped and draped in normal fashion. The tourniquet was inflated to 250 mmHg. A longitudinal incision extending 4 cm was then made just posterior to the lateral epicondyle extending distally and posteriorly. The skin was incised sharply. Subcu tissues were divided bluntly. Electrocautery was used for hemostasis. The interval between anchor medius and extensor carpal ulnaris was then developed. A retractor was placed. The form was fully pronated. The capsule was incised. A moderate serous effusion was encountered. Deep cultures were obtained. A portion of synovium was sharply debrided with a scalpel. The joint was then copiously irrigated with normal saline. The subcutaneous tissues were reapproximated with interrupted 2-0 Vicryl sutures. The skin was reprepped with 3-0 subcuticular Prolene suture. A sterile dressing was applied in addition to a sling. The tourniquet was deflated less than 30 minutes total tourniquet time. Patient was awoken from general anesthesia and transferred to recovery room in good condition. Blood loss was estimated at 10 mL. No competitions were incurred.
[2017-04-10] MEDS ORDERED: VANCOMYCIN TROUGH DUE 1 EACH MISC MISCELLANE ONE (10:00)
[2017-04-10] MEDS: HYDROmorphone 1 MG/ML 1 ML SYRINGE IVP ONE ×2 (10:08→10:14)
[2017-04-10] MEDS: NICOTINE 21MG/24HR PATCH TRANSDERM SCH ×2 (10:29→20:12)
[2017-04-10] MEDS: FAMOTIDINE 20 MG TAB PO SCH ×2 (10:30→20:12)
--- NOTE | 2017-04-10 11:44 | P.PN ---
Subjective Principal diagnosis: right elbow swelling Patient is a 21-year-old male with no significant past medical history who presented with complaints of right elbow swelling after suffering a fall from standing 2 days ago. He has had increasing swelling and pain over his right elbow. In the ER he underwent extensive evaluation. His initial x- ray showed diffuse subcutaneous edema but no fracture. He did have a fever of 100.9 in the ER and a white blood cell count of 12.6. His ESR and CRP were elevated. He was given a dose of vancomycin and admitted as observation. He was seen by ortho and an MRI of the right elbow was ordered as there is concern for septic bursitis. MRI showed large effusion. He was seen by infectious disease was concerned about possible septic arthritis/bursitis. On the morning of 04/10 he underwent incision and drainage of the right elbow. Patient seen and examined at bedside. He is upset and frustrated with being in hospital. States he just wants to leave. I discussed with him the fact that if he leaves and this is an infection resolved worsening infection, permanent elbow dysfunction, or from sepsis. He denies any elbow pain at this point in time. He is not having any nausea or diarrhea. He states I am "fine other than this elbow." He is frustrated that he doesn't get Internet service here and he can't get contact with "my old lady" Objective - Vital Signs Vital signs: Vital Signs Temp 97.6 F 04/10/17 10:25 Pulse 72 04/10/17 10:55 Resp 18 04/10/17 10:25 BP 133/77 04/10/17 10:55 Pulse Ox 97 04/10/17 10:55 Intake & Output 04/09/17 04/10/17 04/10/17 18:59 06:59 18:59 Intake Total 952 1000 Output Total 5 Balance 952 995 Weight 99.79 kg Intake: IV 1000 Oral 952 Output: Estimated Blood Loss 5 Other: Voiding Method Toilet Toilet Toilet - Exam General: non toxic, mild distress, appears at stated age Derm: no rashes, no lesions Head: atraumatic, normocephalic, symmetric Eyes: EOMI, no lid lag, anicteric sclera ENT: no post nasal drip, no thrush Mouth: no lip lesion, mucus membranes moist Cardiovascular: S1S2 reg, no murmur, positive posterior tibial pulse bilateral, Lungs: CTA bilateral, no rhonchi, no rales , no accessory muscle use Abdominal: soft, nontender to palpation, no guarding, no appreciable organomegaly Ext: Right elbow in sling and with acei wrap. Edema appears improved., no lower extremity edema, no contractures Neuro: CN II-XI grossly intact, no focal neuro deficits Psych: Alert, oriented, appropriate affect - Labs CBC & Chem 7: 04/10/17 05:12 04/10/17 05:12 Labs: Abnormal Lab Results - Last 24 Hours (Table) 04/10/17 Range/Units 05:12 Chloride 109 H (98-107) mmol/L Creatinine 0.60 L (0.66-1.25) mg/dL Assessment and Plan Plan: #Cellulitis with sepsis of the right elbow, concern for septic bursitis - s/p I and D -Continue with vancomycin, pharmacy to dose and ceftazidime -Continue [place] and add morphine to help with pain control -Infectious disease recommnedations #Tobacco abuse -Sensation recommended -Nicotine patch DVT prophylaxis: SCDs with possible surgery Discussed with: Patient and nursing Anticipated discharge: [address]: home may need IV ABX A total of 35 minutes was spent on the care of this complex patient more than 50 % of the time was spent in counseling and care coordination.
[2017-04-10] MEDS: HYDROcodone/APAP 5-325MG 1 EACH TAB PO PRN ×2 (12:13→22:30)
--- NOTE | 2017-04-10 14:48 | CDI ---
In responding to this query, please exercise your independent professional judgment. The [facility] Coding Staff and Clinical Documentation Specialists appreciate your assistance in clarifying documentation, maintaining compliance with coding guidelines, accurately documenting patients condition and capturing severity of illness. The fact that a question is asked does not imply that any particular answer is desired or expected. Communication forms are a method of clarifying documentation and are not made part of the Legal Health Record. Thank you in advance for your clarification. Last Revision, May 2015 Baldemar [address] [place] [address] Documentation Clarification Form Date: 04/10/2017 2:34:00 PM From: Adela Cárdenas RN, CCDS Admit Date: 04/09/2017 2:33:00 AM Patient Name: John Hayden V Visit Number: [id number] Dr. Erik Bautista Per your progress notes/operative note, a debridement was performed on 04/10/17. History/Risk Factors: Smoker Clinical Indicators: 04/10 OP Note: "A portion of synovium was sharply debrided with a scalpel. The joint was then copiously irrigated with normal saline. The subcutaneous tissues were reapproximated with interrupted 2-0 Vicryl sutures. Treatment: I&D Five elements required for accurate and compliant documentation of a debridement : 1. Technique used (e.g., Excisional, excised, cutting, etc.) 2. Instrument(s) used (e.g., scalpel, curette, etc.) 3. Nature of the tissue removed (e.g., necrotic, devitalized tissues, non- viable tissue, etc.) 4. Appearance and size of the wound (e.g., down to fresh bleeding tissue, 7cm x 10cm, etc.) 5. Depth of the debridement* (e.g., skin, subcutaneous tissue, fascia, muscle , bone, etc.) In order to capture the severity of condition and code the appropriate procedure could you please document the following: Excisional debridement (the removal of necrotic, devitalized tissue or slough by means of cutting away of tissue) Non-Excisional debridement (the removal of necrotic, devitalized tissue or slough by means of flushing, brushing, or washing. (Irrigation) Other; with explanation for clinical findings Unable to determine (no explanation for clinical findings) Please document in an addendum to your operative report in order to capture severity of illness and risk of mortality. Include clinical findings that support your diagnosis. FYI: Press F11 to launch patient chart. Place X here if this finding has no clinical significance, is not applicable or if you are not able to provide any additional documentation. AP
[2017-04-10] MEDS: HYDROmorphone 1 MG/ML 1 ML SYRINGE IVP PRN ×2 (14:55→20:14)
[2017-04-10] MEDS: SODIUM CHLORIDE 0.9% 1,000 ML IV SCH (15:33)
[2017-04-10] MEDS ORDERED: KETOROLAC 30 MG/ML 1 ML VIAL IVP STA (15:46)
[2017-04-10] MEDS ORDERED: DIAZEPAM 2 MG TAB PO PRN (16:44)
--- NOTE | 2017-04-10 23:28 | P.PN ---
Subjective Principal diagnosis: Right elbow infection 21 year old male with bipolar disorder was playing with his nephew when he suffered a fall on ground which was soil not concrete or blacktop. Has had rapid swelling and worsening of the arm and presented to the ER and admitted for evaluation concern to fracture, abscess or hemarthrosis. With a cellulitis like issue ID consult requested The patient was reevaluated by orthopedics. Is taking the operating room for incision and drainage of the right elbow. Deep tissue cultures are sent to the laboratory. Apparently no large amounts of fluid were discovered for cell counts. Orthopedics relates the need for further days of antibiotic therapy. Objective - Vital Signs Vital signs: Vital Signs Temp 97.1 F L 04/10/17 22:39 Pulse 83 04/10/17 22:39 Resp 16 04/10/17 22:39 BP 119/69 04/10/17 22:39 Pulse Ox 100 04/10/17 22:39 Intake & Output 04/10/17 04/10/17 04/11/17 06:59 18:59 06:59 Intake Total 1420 Output Total 5 Balance 1415 Weight 99.79 kg Intake: IV 1000 Oral 420 Output: Estimated Blood Loss 5 Other: Voiding Method Toilet Toilet - Exam no fever or chills - Constitutional General appearance: average body habitus, cooperative - EENT Eyes: EOMI Ears: bilateral: normal - Neck Neck: no lymphadenopathy, no thyromegaly Thyroid: bilateral: normal size - Respiratory Respiratory: bilateral: wheezing (scattered) - Cardiovascular Rhythm: regular Heart sounds: normal: S1, S2 Abnormal Heart Sounds: no systolic murmur, no diastolic murmur, no S3 Gallop, no S4 Gallop - Gastrointestinal General gastrointestinal: no organomegaly, soft, no tenderness - Integumentary swelling to the right are from wrist to nealry the shoulder with maximum swelling at the elbow with very poor range of motion tender to touch Surgical dressing remains in place. Neuro the patient is agitated today. His nerve block wore off. He is follow in language and actions. He is respectfully talked to 4 the goal to improve his behavior - Labs CBC & Chem 7: 04/10/17 05:12 04/10/17 05:12 Labs: Abnormal Lab Results - Last 24 Hours (Table) 04/10/17 Range/Units 05:12 Chloride 109 H (98-107) mmol/L Creatinine 0.60 L (0.66-1.25) mg/dL Microbiology - Last 24 Hours (Table) 04/10/17 09:39 Anaerobic Culture - Preliminary Elbow - Right 04/10/17 09:39 Wound Culture - Preliminary Elbow - Right 04/10/17 09:39 Wound Culture - Preliminary Elbow - Right 04/10/17 09:39 Anaerobic Culture - Preliminary Elbow - Right Laboratory Results WBC 8.2 k/uL (3.8-10.6) 04/10/17 05:12 RBC 4.85 m/uL (4.30-5.90) 04/10/17 05:12 Hgb 14.3 gm/dL (13.0-17.5) 04/10/17 05:12 Hct 43.7 % (39.0-53.0) 04/10/17 05:12 MCV 90.1 fL (80.0-100.0) 04/10/17 05:12 MCH 29.6 pg (25.0-35.0) 04/10/17 05:12 MCHC 32.8 g/dL (31.0-37.0) 04/10/17 05:12 RDW 13.2 % (11.5-15.5) 04/10/17 05:12 Plt Count 234 k/uL (150-450) 04/10/17 05:12 Neutrophils % 48 % 04/10/17 05:12 Lymphocytes % 37 % 04/10/17 05:12 Monocytes % 6 % 04/10/17 05:12 Eosinophils % 6 % 04/10/17 05:12 Basophils % 1 % 04/10/17 05:12 Neutrophils # 4.0 k/uL (1.3-7.7) 04/10/17 05:12 Lymphocytes # 3.1 k/uL (1.0-4.8) 04/10/17 05:12 Monocytes # 0.5 k/uL (0-1.0) 04/10/17 05:12 Eosinophils # 0.5 k/uL (0-0.7) 04/10/17 05:12 Basophils # 0.1 k/uL (0-0.2) 04/10/17 05:12 ESR 16 mm/hr (0-15) H 04/09/17 00:30 Sodium 139 mmol/L (137-145) 04/10/17 05:12 Potassium 4.3 mmol/L (3.5-5.1) 04/10/17 05:12 Chloride 109 mmol/L (98-107) H 04/10/17 05:12 Carbon Dioxide 22 mmol/L (22-30) 04/10/17 05:12 Anion Gap 8 mmol/L 04/10/17 05:12 BUN 10 mg/dL (9-20) 04/10/17 05:12 Creatinine 0.60 mg/dL (0.66-1.25) L 04/10/17 05:12 Est GFR (MDRD) Af Amer >60 (>60 ml/min/1.73 sqM) 04/10/17 05:12 Est GFR (MDRD) Non-Af >60 (>60 ml/min/1.73 sqM) 04/10/17 05:12 Glucose 78 mg/dL (74-99) 04/10/17 05:12 Uric Acid 6.1 mg/dL (3.5-8.5) 04/09/17 00:30 Calcium 8.8 mg/dL (8.4-10.2) 04/10/17 05:12 C-Reactive Protein 63.8 mg/L (<10.0) H 04/09/17 00:30 Vancomycin Trough 16.6 ug/mL 04/10/17 11:14 Microbiology 04/10/17 09:39 Elbow - Right Anaerobic Culture - Preliminary 04/10/17 09:39 Elbow - Right Wound Culture - Preliminary 04/10/17 09:39 Elbow - Right Wound Culture - Preliminary 04/10/17 09:39 Elbow - Right Anaerobic Culture - Preliminary Assessment and Plan (1) Elbow injury Narrative/Plan: 21 year old male with fall and injury to the right elbow has occurred and is evaluated by orthopedics and MRI requested to evaluate for fracture, abscess, hemarthrosis or other trauma. It will help determine need for surgical intervention Vanco was started and with the trauma would also add ceftazidime with concern to gram negative infection including pseudomonas Elevated crp in keepings with an infection at the site Multiple deep tissue cultures are sent to the time of surgery. This will help direct his antibiotic therapy at discharge Status: Acute
[2017-04-11] MEDS: KETOROLAC 30 MG/ML 1 ML VIAL IVP SCH ×5 (00:10→23:54)
[2017-04-11] MEDS: VANCOMYCIN 1,500 MG in SODIUM CHLORIDE 0.9% 250 ML IVPB SCH ×3 (03:40→18:30)
[2017-04-11] MEDS: SODIUM CHLORIDE 0.9% 1,000 ML IV SCH (03:41)
[2017-04-11] MEDS: FAMOTIDINE 20 MG TAB PO SCH ×2 (08:20→19:58)
[2017-04-11] MEDS: HYDROmorphone 1 MG/ML 1 ML SYRINGE IVP PRN ×3 (08:20→19:59)
[2017-04-11 08:47] LABS: CH 29.1; CHCM 33.6; HCT 38.9 % (39.0-53.0); HDW 2.69; HGB 13.3 gm/dL (13.0-17.5); MCH 29.8 pg (25.0-35.0); MCHC 34.2 g/dL (31.0-37.0); MCV 87.2 fL (80.0-100.0); Mean Platelet Volume 6.5; RBC 4.47 m/uL (4.30-5.90); WBC 8.5 k/uL (3.8-10.6)
[2017-04-11 08:56] LABS: Anion Gap 6 mmol/L; Blood Urea Nitrogen 8 mg/dL (9-20); Calcium 8.8 mg/dL (8.4-10.2); Carbon Dioxide 29 mmol/L (22-30); Chloride 105 mmol/L (98-107); Glucose 120 mg/dL (74-99); Non-African American GFR(MDRD) >60 (>60 ml/min/1.73 sqM); Potassium 3.8 mmol/L (3.5-5.1); Sodium 140 mmol/L (137-145)
--- NOTE | 2017-04-11 10:08 | P.PN ---
Subjective Principal diagnosis: right elbow swelling Patient is a 21-year-old male with no significant past medical history who presented with complaints of right elbow swelling after suffering a fall from standing 2 days ago. He has had increasing swelling and pain over his right elbow. In the ER he underwent extensive evaluation. His initial x- ray showed diffuse subcutaneous edema but no fracture. He did have a fever of 100.9 in the ER and a white blood cell count of 12.6. His ESR and CRP were elevated. He was given a dose of vancomycin and admitted as observation. He was seen by ortho and an MRI of the right elbow was ordered as there is concern for septic bursitis. MRI showed large effusion. He was seen by infectious disease was concerned about possible septic arthritis/bursitis. On the morning of 04/10 he underwent incision and drainage of the right elbow. By the morning of 04/11 he was feeling much improved. Patient seen and examined at bedside. He is in much better spirits today. He states that his pain is well controlled. He denies any nausea, vomiting, diarrhea, or constipation. He is able to move his elbow better today. He understands that he will likely need to stay here until Thursday or Thursday pending culture results and possible need for PICC line. Objective - Vital Signs Vital signs: Vital Signs Temp 97.9 F 04/11/17 07:40 Pulse 59 L 04/11/17 07:40 Resp 14 04/11/17 07:40 BP 111/65 04/11/17 07:40 Pulse Ox 98 04/11/17 07:40 Intake & Output 04/10/17 04/11/17 04/11/17 18:59 06:59 18:59 Intake Total 1420 Output Total 5 Balance 1415 Intake: IV 1000 Oral 420 Output: Estimated Blood Loss 5 Other: Voiding Method Toilet - Exam General: non toxic, No distress, appears at stated age Derm: no rashes, no lesions Head: atraumatic, normocephalic, symmetric Eyes: EOMI, no lid lag, anicteric sclera ENT: no post nasal drip, no thrush Mouth: no lip lesion, mucus membranes moist Cardiovascular: S1S2 reg, no murmur, positive posterior tibial pulse bilateral, Lungs: CTA bilateral, no rhonchi, no rales , no accessory muscle use Abdominal: soft, nontender to palpation, no guarding, no appreciable organomegaly Ext: Right elbow with wrap. Edema appears improved., no lower extremity edema, no contractures Neuro: CN II-XI grossly intact, no focal neuro deficits Psych: Alert, oriented, appropriate affect - Labs CBC & Chem 7: 04/11/17 08:30 04/11/17 08:30 Labs: Abnormal Lab Results - Last 24 Hours (Table) 04/11/17 04/11/17 Range/Units 08:30 08:30 Hct 38.9 L (39.0-53.0) % BUN 8 L (9-20) mg/dL Glucose 120 H (74-99) mg/dL Microbiology - Last 24 Hours (Table) 04/10/17 09:39 Gram Stain - Preliminary Elbow - Right Wound Culture - Preliminary 04/10/17 09:39 Gram Stain - Preliminary Elbow - Right Wound Culture - Preliminary 04/10/17 09:39 Anaerobic Culture - Preliminary Elbow - Right 04/10/17 09:39 Anaerobic Culture - Preliminary Elbow - Right Assessment and Plan Plan: #Septic arthritis with sepsis of the right elbow - s/p I and D -Continue with vancomycin, pharmacy to dose, and ceftazidime -Continue Spade and add morphine to help with pain control -Infectious disease recommendations #Tobacco abuse -Sensation recommended -Nicotine patch DVT prophylaxis: SCDs with possible surgery Discussed with: Patient and nursing, Ortho Anticipated discharge: 48-72 hours once culture results available Anticipated discharge place: home may need IV ABX A total of 35 minutes was spent on the care of this complex patient more than 50 % of the time was spent in counseling and care coordination.
--- NOTE | 2017-04-11 11:17 | P.PN ---
Subjective Principal diagnosis: Status post I&D right elbow Patient seen today resting in his hospital bed, he appears comfortable. He notes that the elbow is feeling a little better since surgery. He notes no fever chills. He notes no worsening pain involving the right elbow. Objective - Vital Signs Vital signs: Vital Signs Temp 97.9 F 04/11/17 07:40 Pulse 59 L 04/11/17 07:40 Resp 14 04/11/17 07:40 BP 111/65 04/11/17 07:40 Pulse Ox 98 04/11/17 07:40 Intake & Output 04/10/17 04/11/17 04/11/17 18:59 06:59 18:59 Intake Total 1420 Output Total 5 Balance 1415 Intake: IV 1000 Oral 420 Output: Estimated Blood Loss 5 Other: Voiding Method Toilet - Exam Right upper extremity: Initial postoperative bandage is removed, no active drainage visualized. Swelling is significantly improved. There some ecchymosis in the medial aspect of the elbow. Range of motion is also improved. Sensation to light touch is intact without extremity, radial pulses 2+ - Labs CBC & Chem 7: 04/11/17 08:30 04/11/17 08:30 Labs: Abnormal Lab Results - Last 24 Hours (Table) 04/11/17 04/11/17 Range/Units 08:30 08:30 Hct 38.9 L (39.0-53.0) % BUN 8 L (9-20) mg/dL Glucose 120 H (74-99) mg/dL Microbiology - Last 24 Hours (Table) 04/10/17 09:39 Gram Stain - Preliminary Elbow - Right Wound Culture - Preliminary 04/10/17 09:39 Gram Stain - Preliminary Elbow - Right Wound Culture - Preliminary 04/10/17 09:39 Anaerobic Culture - Preliminary Elbow - Right 04/10/17 09:39 Anaerobic Culture - Preliminary Elbow - Right Assessment and Plan Plan: Assessment: 1. Postop day #1 status post I&D right elbow Plan: 1. Pain control, continue subdural medication 2. Daily dressing changes/ice and elevate 3. Work on basic hand and wrist motion, avoid excess flexion and extension with the elbow 4. Awaiting culture results for antibiotic choice 5. Medical and infectious disease recommendations 6. Discharge planning: Patient will be likely discharged home once cultures are done and antibiotic is chosen Time with Patient: Less than 30
--- NOTE | 2017-04-11 11:17 | P.PN ---
Progress Note - Text Addendum to operative report The right elbow incision and drainage/irrigation and debridement was to the level of the joint/bone. Excisional debridement with a scalpel excising granulation/inflammatory synovial tissue was performed in addition to irrigation of the joint. There was no pre-existing wound.
[2017-04-11] MEDS: HYDROcodone/APAP 5-325MG 1 EACH TAB PO PRN ×3 (11:24→23:27)
[2017-04-11] MEDS: NYSTATIN 100,000 UNIT/ML SUSP 500,000 UNIT/5 ML CUP PO SCH ×3 (13:46→19:58)
[2017-04-11] MEDS: NICOTINE 21MG/24HR PATCH TRANSDERM SCH (14:38)
[2017-04-12] MEDS: HYDROmorphone 1 MG/ML 1 ML SYRINGE IVP PRN ×4 (03:35→20:48)
[2017-04-12] MEDS: SODIUM CHLORIDE 0.9% 1,000 ML IV SCH (03:37)
[2017-04-12] MEDS: VANCOMYCIN 1,500 MG in SODIUM CHLORIDE 0.9% 250 ML IVPB SCH ×3 (03:38→17:37)
[2017-04-12] MEDS: KETOROLAC 30 MG/ML 1 ML VIAL IVP SCH ×3 (06:02→17:36)
[2017-04-12 08:02] LABS: CH 30.3; CHCM 35.1; HCT 40.2 % (39.0-53.0); HDW 2.66; HGB 13.8 gm/dL (13.0-17.5); MCH 29.8 pg (25.0-35.0); MCHC 34.4 g/dL (31.0-37.0); MCV 86.5 fL (80.0-100.0); Mean Platelet Volume 7.8; RBC 4.65 m/uL (4.30-5.90); RDW 13.8 % (11.5-15.5); WBC 8.4 k/uL (3.8-10.6)
[2017-04-12] MEDS: FAMOTIDINE 20 MG TAB PO SCH ×2 (08:07→20:48)
[2017-04-12] MEDS: NYSTATIN 100,000 UNIT/ML SUSP 500,000 UNIT/5 ML CUP PO SCH ×4 (08:07→20:48)
--- NOTE | 2017-04-12 08:31 | P.PN ---
Subjective Principal diagnosis: Status post I&D right elbow Patient seen today resting in his hospital bed, he appears comfortable. He notes that the elbow is feeling a little better since surgery. He notes no fever chills. He notes no worsening pain involving the right elbow. Objective - Vital Signs Vital signs: Vital Signs Temp 98.3 F 04/12/17 07:32 Pulse 66 04/12/17 07:32 Resp 16 04/12/17 07:32 BP 122/66 04/12/17 07:32 Pulse Ox 99 04/12/17 07:32 - Exam Right upper extremity: Swelling is significantly improved. There some ecchymosis in the medial aspect of the elbow. Range of motion is also improved. Sensation to light touch is intact without extremity, radial pulses 2+ - Labs CBC & Chem 7: 04/12/17 06:46 04/11/17 08:30 Labs: Abnormal Lab Results - Last 24 Hours (Table) 04/11/17 04/11/17 Range/Units 08:30 08:30 Hct 38.9 L (39.0-53.0) % BUN 8 L (9-20) mg/dL Glucose 120 H (74-99) mg/dL Microbiology - Last 24 Hours (Table) 04/10/17 09:39 Gram Stain - Preliminary Elbow - Right Wound Culture - Preliminary 04/10/17 09:39 Gram Stain - Preliminary Elbow - Right Wound Culture - Preliminary Assessment and Plan Plan: Assessment: 1. Postop day #2 status post I&D right elbow Plan: 1. Pain control, continue oral medication 2. Daily dressing changes/ice and elevate 3. Work on basic hand and wrist motion, avoid excess flexion and extension with the elbow 4. Awaiting culture results for antibiotic choice 5. Medical and infectious disease recommendations 6. Discharge planning: Patient will be likely discharged home once cultures are done and antibiotic is chosen Time with Patient: Less than 30
[2017-04-12 08:38] LABS: Anion Gap 8 mmol/L; Blood Urea Nitrogen 9 mg/dL (9-20); C Reactive Protein 30.4 mg/L (<10.0); Calcium 9.1 mg/dL (8.4-10.2); Carbon Dioxide 28 mmol/L (22-30); Chloride 104 mmol/L (98-107); Glucose 74 mg/dL (74-99); Non-African American GFR(MDRD) >60 (>60 ml/min/1.73 sqM); Potassium 4.7 mmol/L (3.5-5.1); Sodium 140 mmol/L (137-145)
--- NOTE | 2017-04-12 11:17 | P.PN ---
Subjective Principal diagnosis: right elbow pain Patient is a 21-year-old male with no significant past medical history who presented with complaints of right elbow swelling after suffering a fall from standing 2 days prior to admission. He has had increasing swelling and pain over his right elbow. In the ER he underwent extensive evaluation. His initial x-ray showed diffuse subcutaneous edema but no fracture. He did have a fever of 100.9 in the ER and a white blood cell count of 12.6. His ESR and CRP were elevated. He was given a dose of vancomycin and admitted as observation. He was seen by ortho and an MRI of the right elbow was ordered as there is concern for septic bursitis. MRI showed large effusion. He was seen by infectious disease was concerned about possible septic arthritis/bursitis. On the morning of 04/10 he underwent incision and drainage of the right elbow. By the morning of 04/11 he was feeling much improved. Initial cultures are negative for 24 hours but final cultures are pending. Patient seen and examined at bedside. Feeling well today, had increased swelling after using his arm all day yesterday. Edema is better this morning. No chest pain, nausea, vomiting, or diarrhea. Objective - Vital Signs Vital signs: Vital Signs Temp 98.3 F 04/12/17 07:32 Pulse 66 04/12/17 07:32 Resp 16 04/12/17 07:32 BP 122/66 04/12/17 07:32 Pulse Ox 99 04/12/17 07:32 - Exam General: non toxic, No distress, appears at stated age Derm: no rashes, no lesions Head: atraumatic, normocephalic, symmetric Eyes: EOMI, no lid lag, anicteric sclera ENT: no post nasal drip, no thrush Mouth: no lip lesion, mucus membranes moist Cardiovascular: S1S2 reg, no murmur, positive posterior tibial pulse bilateral, Lungs: CTA bilateral, no rhonchi, no rales , no accessory muscle use Abdominal: soft, nontender to palpation, no guarding, no appreciable organomegaly Ext: Right elbow with wrap. Edema appears improved., no lower extremity edema, no contractures Neuro: CN II-XI grossly intact, no focal neuro deficits Psych: Alert, oriented, appropriate affect - Labs CBC & Chem 7: 04/12/17 06:46 04/12/17 06:46 Labs: Abnormal Lab Results - Last 24 Hours (Table) 04/12/17 Range/Units 06:46 C-Reactive Protein 30.4 H (<10.0) mg/L Microbiology - Last 24 Hours (Table) 04/10/17 09:39 Gram Stain - Preliminary Elbow - Right Wound Culture - Preliminary 04/10/17 09:39 Gram Stain - Preliminary Elbow - Right Wound Culture - Preliminary Assessment and Plan Plan: #Septic arthritis with sepsis of the right elbow - awaiting final cultures - CRP down trending. - s/p I and D -Continue with vancomycin, pharmacy to dose, and ceftazidime -Continue pain control -Infectious disease recommendations #Tobacco abuse -Sensation recommended -Nicotine patch # Thrush - Continue nystatin swish and swallow Anticipate home in a.m. once final cultures are available, may need a PICC line for IV antibiotics at home hopefully be able to DC soon with rapid resolution of his fevers and leukocytosis pending ID recs. DVT prophylaxis: SCDs and early ambulation Discussed with: Patient and nursing Anticipated discharge: 24-48 hours once culture results available Anticipated discharge place: home may need IV ABX A total of 25 minutes was spent on the care of this complex patient more than 50 % of the time was spent in counseling and care coordination.
[2017-04-12] MEDS: HYDROcodone/APAP 5-325MG 1 EACH TAB PO PRN (17:41)
[2017-04-13] MEDS: KETOROLAC 30 MG/ML 1 ML VIAL IVP SCH ×4 (00:05→17:27)
[2017-04-13] MEDS: HYDROcodone/APAP 5-325MG 1 EACH TAB PO PRN ×3 (00:11→20:22)
[2017-04-13] MEDS: HYDROmorphone 1 MG/ML 1 ML SYRINGE IVP PRN ×3 (03:02→18:44)
[2017-04-13] MEDS: VANCOMYCIN 1,500 MG in SODIUM CHLORIDE 0.9% 250 ML IVPB SCH ×3 (04:19→18:48)
[2017-04-13] MEDS: SODIUM CHLORIDE 0.9% 1,000 ML IV SCH (04:20)
[2017-04-13] MEDS: FAMOTIDINE 20 MG TAB PO SCH ×2 (07:37→20:22)
[2017-04-13] MEDS: NICOTINE 21MG/24HR PATCH TRANSDERM SCH (07:38)
[2017-04-13] MEDS: NYSTATIN 100,000 UNIT/ML SUSP 500,000 UNIT/5 ML CUP PO SCH ×4 (07:38→21:15)
[2017-04-13] MEDS ORDERED: VANCOMYCIN TROUGH DUE 1 EACH MISC MISCELLANE ONE (10:00)
--- NOTE | 2017-04-13 12:42 | P.PN ---
Subjective Principal diagnosis: Status post I&D right elbow Patient seen today resting in his hospital bed, he appears comfortable. He notes that the elbow is feeling a little better since surgery. He notes no fever chills. He notes no worsening pain involving the right elbow. Objective - Vital Signs Vital signs: Vital Signs Temp 97.2 F L 04/13/17 07:00 Pulse 69 04/13/17 07:00 Resp 16 04/13/17 07:00 BP 113/56 04/13/17 07:00 Pulse Ox 99 04/13/17 07:00 Intake & Output 04/12/17 04/13/17 04/13/17 18:59 06:59 18:59 Other: Voiding Method Toilet # Voids 1 - Exam Right upper extremity: Swelling is significantly improved. There some ecchymosis in the medial aspect of the elbow. Range of motion is also improved. Sensation to light touch is intact without extremity, radial pulses 2+ - Labs CBC & Chem 7: 04/12/17 06:46 04/12/17 06:46 Labs: Microbiology - Last 24 Hours (Table) 04/10/17 09:39 Anaerobic Culture - Preliminary Elbow - Right 04/10/17 09:39 Anaerobic Culture - Preliminary Elbow - Right 04/10/17 09:39 Gram Stain - Final Elbow - Right Wound Culture - Final 04/10/17 09:39 Gram Stain - Final Elbow - Right Wound Culture - Final Assessment and Plan Plan: Assessment: 1. Postop day #3 status post I&D right elbow Plan: 1. Pain control, continue oral medication 2. Daily dressing changes/ice and elevate 3. Work on basic hand and wrist motion, avoid excess flexion and extension with the elbow 4. Awaiting culture results for antibiotic choice 5. Medical and infectious disease recommendations 6. Discharge planning: On orthopedic standpoint, patient is stable for discharge to home. Awaiting internal medicine recommendations for outpatient antibiotic treatment. Advise follow-up in 2 weeks for suture removal Time with Patient: Less than 30
--- NOTE | 2017-04-13 17:24 | P.PN ---
Subjective Principal diagnosis: patient was seen and examined in follow up of cellulitis and swelling of the right elbow 21 year old male sustained an injury to the right elbow after falling on dirt. patient had received I and D of the right elbow, and started on broad spectrum ABx. patient feels well today , no new complaints, denies any fevers or chills, still having limited range of motion of john right elbow, denies any numbness or tingling over the right fingers. tolerating diet and pain controlled with IV opioids Objective - Vital Signs Vital signs: Vital Signs Temp 96.9 F L 04/13/17 15:00 Pulse 76 04/13/17 15:00 Resp 16 04/13/17 15:00 BP 134/64 04/13/17 15:00 Pulse Ox 98 04/13/17 15:00 Intake & Output 04/12/17 04/13/17 04/13/17 18:59 06:59 18:59 Other: Voiding Method Toilet # Voids 1 2 - Exam Constitutional: vital signs stable, Not in acute distress, pleasant, conversant Lungs: Clear to auscultation bilaterally, clear to percussion, normal respiratory effort no use of accessory muscles Cardiovascular: Regular rate and rhythm, no murmurs, no gallops, no rubs, no peripheral edema Extremities: right elbow with surgical dressing, limited range of motion of the right elbow , no evidence of neurovascular insult over the right hand Psych: Alert, oriented to place, person and time - Labs CBC & Chem 7: 04/12/17 06:46 04/12/17 06:46 Labs: Microbiology - Last 24 Hours (Table) 04/10/17 09:39 Anaerobic Culture - Preliminary Elbow - Right 04/10/17 09:39 Anaerobic Culture - Preliminary Elbow - Right Assessment and Plan (1) Septic arthritis Narrative/Plan: of the right elbow, with fall injury s/p I and D broad spectrum ABx per ID cultures negative to date await ID recs regarding discharge ABx choice pain control Status: Acute (2) Elbow injury Status: Acute (3) DVT prophylaxis Narrative/Plan: heparin sc Status: Acute Plan: occupational therapy consult for right elbow limited range of motion discharge in AM , pending ID recs regarding OP ABx management
[2017-04-13] MEDS: HEPARIN SODIUM,PORCINE 5,000 UNIT/ML 1 ML VIAL SQ SCH (17:27)
--- NOTE | 2017-04-13 21:27 | P.PN ---
Subjective Principal diagnosis: Right elbow infection 21 year old male with bipolar disorder was playing with his nephew when he suffered a fall on ground which was soil not concrete or blacktop. Has had rapid swelling and worsening of the arm and presented to the ER and admitted for evaluation concern to fracture, abscess or hemarthrosis. With a cellulitis like issue ID consult requested The patient was reevaluated by orthopedics. Is taking the operating room for incision and drainage of the right elbow. Deep tissue cultures are sent to the laboratory. Apparently no large amounts of fluid were discovered for cell counts. He is now showing some improvement today. The deep tissue cultures are being completed and forcefully no evidence of any significant deep infections being found. Objective - Vital Signs Vital signs: Vital Signs Temp 96.9 F L 04/13/17 15:00 Pulse 76 04/13/17 15:00 Resp 16 04/13/17 15:00 BP 134/64 04/13/17 15:00 Pulse Ox 98 04/13/17 15:00 Intake & Output 04/13/17 04/13/17 04/14/17 06:59 18:59 06:59 Other: Voiding Method Toilet # Voids 1 2 - Exam no fever or chills - Constitutional General appearance: average body habitus, cooperative - EENT Eyes: EOMI Ears: bilateral: normal - Neck Neck: no lymphadenopathy, no thyromegaly Thyroid: bilateral: normal size - Respiratory Respiratory: bilateral: wheezing (scattered) - Cardiovascular Rhythm: regular Heart sounds: normal: S1, S2 Abnormal Heart Sounds: no systolic murmur, no diastolic murmur, no S3 Gallop, no S4 Gallop - Gastrointestinal General gastrointestinal: no organomegaly, soft, no tenderness - Integumentary There is been marked improvement of the swelling to the right arm. Is now limited to just a small area at the elbow. It is only area that is still somewhat narrative this time. The extensive swelling from the wrist to the shoulder area has generally resolved. He has some minimal discomfort with range of motion but is moving his arm relatively well. He does not want ice. Neuro the patient's agitation is resolved. He is much more calm and looks forward to going home. - Labs CBC & Chem 7: 04/12/17 06:46 04/12/17 06:46 Labs: Laboratory Results WBC 8.4 k/uL (3.8-10.6) 04/12/17 06:46 RBC 4.65 m/uL (4.30-5.90) 04/12/17 06:46 Hgb 13.8 gm/dL (13.0-17.5) 04/12/17 06:46 Hct 40.2 % (39.0-53.0) 04/12/17 06:46 MCV 86.5 fL (80.0-100.0) 04/12/17 06:46 MCH 29.8 pg (25.0-35.0) 04/12/17 06:46 MCHC 34.4 g/dL (31.0-37.0) 04/12/17 06:46 RDW 13.8 % (11.5-15.5) 04/12/17 06:46 Plt Count 254 k/uL (150-450) 04/12/17 06:46 Neutrophils % 48 % 04/10/17 05:12 Lymphocytes % 37 % 04/10/17 05:12 Monocytes % 6 % 04/10/17 05:12 Eosinophils % 6 % 04/10/17 05:12 Basophils % 1 % 04/10/17 05:12 Neutrophils # 4.0 k/uL (1.3-7.7) 04/10/17 05:12 Lymphocytes # 3.1 k/uL (1.0-4.8) 04/10/17 05:12 Monocytes # 0.5 k/uL (0-1.0) 04/10/17 05:12 Eosinophils # 0.5 k/uL (0-0.7) 04/10/17 05:12 Basophils # 0.1 k/uL (0-0.2) 04/10/17 05:12 ESR 16 mm/hr (0-15) H 04/09/17 00:30 Sodium 140 mmol/L (137-145) 04/12/17 06:46 Potassium 4.7 mmol/L (3.5-5.1) 04/12/17 06:46 Chloride 104 mmol/L (98-107) 04/12/17 06:46 Carbon Dioxide 28 mmol/L (22-30) 04/12/17 06:46 Anion Gap 8 mmol/L 04/12/17 06:46 BUN 9 mg/dL (9-20) 04/12/17 06:46 Creatinine 0.70 mg/dL (0.66-1.25) 04/12/17 06:46 Est GFR (MDRD) Af Amer >60 (>60 ml/min/1.73 sqM) 04/12/17 06:46 Est GFR (MDRD) Non-Af >60 (>60 ml/min/1.73 sqM) 04/12/17 06:46 Glucose 74 mg/dL (74-99) 04/12/17 06:46 Uric Acid 6.1 mg/dL (3.5-8.5) 04/09/17 00:30 Calcium 9.1 mg/dL (8.4-10.2) 04/12/17 06:46 C-Reactive Protein 30.4 mg/L (<10.0) H 04/12/17 06:46 Vancomycin Trough 15.6 ug/mL 04/13/17 11:17 Microbiology 04/10/17 09:39 Elbow - Right Anaerobic Culture - Preliminary 04/10/17 09:39 Elbow - Right Anaerobic Culture - Preliminary 04/10/17 09:39 Elbow - Right Gram Stain - Final 04/10/17 09:39 Elbow - Right Wound Culture - Final 04/10/17 09:39 Elbow - Right Gram Stain - Final 04/10/17 09:39 Elbow - Right Wound Culture - Final Assessment and Plan (1) Elbow injury Narrative/Plan: 21 year old male with fall and injury to the right elbow has occurred and is evaluated by orthopedics and MRI requested to evaluate for fracture, abscess, hemarthrosis or other trauma. It will help determine need for surgical intervention Vanco was started and with the trauma would also add ceftazidime with concern to gram negative infection including pseudomonas Elevated crp in keepings with an infection at the site Multiple deep tissue cultures were sent from surgery. Fortunately are negative. We'll be able to alter him to oral antibiotic therapy and discharge in the morning if no other occurrences are happening. Cefuroxime 500 mg every 12 hours will be planned for a week at home. Follow surgery in the outpatient setting Status: Acute
[2017-04-14] MEDS: KETOROLAC 30 MG/ML 1 ML VIAL IVP SCH
[2017-04-14] MEDS: HYDROmorphone 1 MG/ML 1 ML SYRINGE IVP PRN (00:11)
[2017-04-14] MEDS: SODIUM CHLORIDE 0.9% 1,000 ML IV SCH (06:12)
[2017-04-14 08:16] VITALS: BP 117/69; PULSE 59; RESP 20; TEMP 97.3
[2017-04-14] MEDS: HEPARIN SODIUM,PORCINE 5,000 UNIT/ML 1 ML VIAL SQ SCH ×2 (08:23)
[2017-04-14] MEDS: FAMOTIDINE 20 MG TAB PO SCH (08:23)
[2017-04-14] MEDS: NICOTINE 21MG/24HR PATCH TRANSDERM SCH (08:24)
[2017-04-14] MEDS: NYSTATIN 100,000 UNIT/ML SUSP 500,000 UNIT/5 ML CUP PO SCH (08:24)
[2017-04-14] MEDS ORDERED: CEFUROXIME 250 MG TAB PO SCH (09:00)
[2017-04-14 09:06] LABS: Anion Gap 10 mmol/L; Blood Urea Nitrogen 11 mg/dL (9-20); Calcium 9.2 mg/dL (8.4-10.2); Carbon Dioxide 26 mmol/L (22-30); Chloride 104 mmol/L (98-107); Glucose 113 mg/dL (74-99); Non-African American GFR(MDRD) >60 (>60 ml/min/1.73 sqM); Potassium 3.9 mmol/L (3.5-5.1); Sodium 140 mmol/L (137-145)
--- NOTE | 2017-04-14 12:06 | P.DS ---
Providers Date of admission: 04/09/17 02:33 Expected date of discharge: 04/14/17 Attending physician: Giana Saravia MD Consults: 04/09/17 02:34 Consult Physician Routine Consulting Provider: Erik Bautista Consult Reason/Comments: Right elbow injury Do you want consulting provider notified?: Yes 04/09/17 09:45 Consult Physician Urgent Consulting Provider: Edmundo Carlson Consult Reason/Comments: cellulitis/elbow infection Do you want consulting provider notified?: Yes Primary care physician: Stated None - Discharge Diagnosis(es) (1) Elbow injury secondary to fall Current Visit: Yes Status: Acute Priority: High (2) DVT prophylaxis on heparin sc tid Current Visit: Yes Status: Acute (3) Nicotine dependence patient counseled to quit smoking, NRT offered Current Visit: Yes Status: Chronic (4) Cellulitis of the right elbow improving with ABx Current Visit: Yes Status: Acute Hospital Course: 21 year old male sustained an injury to the right elbow after falling on soil ground. He rapidly developed swelling of the right elbow with painful limited range of motion, presented to the hospital for this complaint and further workup and imaging revieled no acute fractures, he was placed on broad spectrum antibiotics for possible septic arthritis and orthopedic performed I and D of the joint, culutres negative to date. ID cleared the patient for discharge with PO antibiotics. patient had received I and D of the right elbow. Cultures remained negative and patient was switched to PO antibiotics. Constitutional: vital signs stable, Not in acute distress, pleasant, conversant Lungs: Clear to auscultation bilaterally, clear to percussion, normal respiratory effort no use of accessory muscles Cardiovascular: Regular rate and rhythm, no murmurs, no gallops, no rubs, no peripheral edema Extremities: range of motion of right elbow improving still limited with pain , orthopedic recommended to avoid movement to the extreme of range of motion and to keep it limited. surgical wound looks healthy and clean , no discharge no induration no erythema. Psych: Alert, oriented to place, person and time patient denies any chest pain, fever, chills, trouble breathing, he is eager to go home, tolerating diet, denies any diarrhea. pain controlled with norco. patient provided with resources to follow up with local PCP per his request. More than 35 minutes were spent discharging this patient, and more than 50% of the time was spent in counseling the patient and family and in coordinating care. Pertinent Studies: MRI of the right elbow, no acute fracture, but showed effusion of the joint and edema of the subcutaneous tissue Procedures: I and D per ortho of the right elbow cultures remained negative Patient Condition at Discharge: Fair Plan - Discharge Summary New Discharge Prescriptions: New Cefuroxime [Ceftin] 500 mg PO BID #28 tab Famotidine [Pepcid] 20 mg PO BID #14 tab HYDROcodone/APAP 10-325MG [[place] 10-325] 1 tab PO Q8H PRN #15 tab PRN Reason: Pain Ibuprofen [Motrin] 600 mg PO Q6HR PRN #20 tab PRN Reason: Mild Pain Nicotine 21Mg/24Hr Patch [Habitrol] 1 patch TRANSDERM DAILY #14 patch Discharge Medication List Cefuroxime [Ceftin] 500 mg PO BID #28 tab 04/14/17 [Rx] Famotidine [Pepcid] 20 mg PO BID #14 tab 04/14/17 [Rx] HYDROcodone/APAP 10-325MG [[place] 10-325] 1 tab PO Q8H PRN #15 tab 04/14/17 [Rx] Ibuprofen [Motrin] 600 mg PO Q6HR PRN #20 tab 04/14/17 [Rx] Nicotine 21Mg/24Hr Patch [Habitrol] 1 patch TRANSDERM DAILY #14 patch 04/14/17 [ Rx] Follow up Appointment(s)/Referral(s): Baldemar Chu PAC [PHYSICIAN UTILITIES EQUIPMENT REPAIRER] - 2 Weeks None,Stated [Primary Care Provider] - 1-2 days Leticia Davison MD [STAFF PHYSICIAN] - 1 Week Hanna Thomas MD [STAFF PHYSICIAN] - 1 Week Patient Instructions/Handouts: Septic Arthritis (DC) Activity/Diet/Wound Care/Special Instructions: Orthopedic discharge instructions: 1. Do not remove his stitches 2. Keep incision clean and dry 3. Keep incision covered while showering 4. Avoid excess flexion and extension with the elbow 5. Basic and wrist exercises 6. [facility] 2 [facility] regular diet as tolerated activity as tolerated Discharge Disposition: HOME SELF-CARE
--- NOTE | 2017-04-14 20:28 | P.PN ---
Subjective Principal diagnosis: Right elbow infection 21 year old male with bipolar disorder was playing with his nephew when he suffered a fall on ground which was soil not concrete or blacktop. Has had rapid swelling and worsening of the arm and presented to the ER and admitted for evaluation concern to fracture, abscess or hemarthrosis. With a cellulitis like issue ID consult requested The patient was reevaluated by orthopedics. Is taking the operating room for incision and drainage of the right elbow. Deep tissue cultures are sent to the laboratory. Apparently no large amounts of fluid were discovered for cell counts. He is now showing some improvement today. The deep tissue cultures are being completed and show no evidence of any significant deep infections being found. Objective - Vital Signs Vital signs: Vital Signs Temp 97.3 F L 04/14/17 07:00 Pulse 59 L 04/14/17 07:00 Resp 20 04/14/17 07:00 BP 117/69 04/14/17 07:00 Pulse Ox 98 04/14/17 07:00 Intake & Output 04/14/17 04/14/17 04/15/17 06:59 18:59 06:59 Other: # Voids 1 - Exam no fever or chills - Constitutional General appearance: average body habitus, cooperative - EENT Eyes: EOMI Ears: bilateral: normal - Neck Neck: no lymphadenopathy, no thyromegaly Thyroid: bilateral: normal size - Respiratory Respiratory: bilateral: wheezing (scattered) - Cardiovascular Rhythm: regular Heart sounds: normal: S1, S2 Abnormal Heart Sounds: no systolic murmur, no diastolic murmur, no S3 Gallop, no S4 Gallop - Gastrointestinal General gastrointestinal: no organomegaly, soft, no tenderness - Integumentary There is been marked improvement of the swelling to the right arm. Is now limited to just a small area at the elbow. It is only area that is still somewhat narrative this time. The extensive swelling from the wrist to the shoulder area has generally resolved. He has some minimal discomfort with range of motion but is moving his arm relatively well. He does not want ice.The incisoin is dry and intact Neuro the patient's agitation is resolved. He is much more calm and looks forward to going home. - Labs CBC & Chem 7: 04/12/17 06:46 04/14/17 08:22 Labs: Abnormal Lab Results - Last 24 Hours (Table) 04/14/17 Range/Units 08:22 Glucose 113 H (74-99) mg/dL Microbiology - Last 24 Hours (Table) 04/10/17 09:39 Anaerobic Culture - Final Elbow - Right 04/10/17 09:39 Anaerobic Culture - Final Elbow - Right Laboratory Results WBC 8.4 k/uL (3.8-10.6) 04/12/17 06:46 RBC 4.65 m/uL (4.30-5.90) 04/12/17 06:46 Hgb 13.8 gm/dL (13.0-17.5) 04/12/17 06:46 Hct 40.2 % (39.0-53.0) 04/12/17 06:46 MCV 86.5 fL (80.0-100.0) 04/12/17 06:46 MCH 29.8 pg (25.0-35.0) 04/12/17 06:46 MCHC 34.4 g/dL (31.0-37.0) 04/12/17 06:46 RDW 13.8 % (11.5-15.5) 04/12/17 06:46 Plt Count 254 k/uL (150-450) 04/12/17 06:46 Neutrophils % 48 % 04/10/17 05:12 Lymphocytes % 37 % 04/10/17 05:12 Monocytes % 6 % 04/10/17 05:12 Eosinophils % 6 % 04/10/17 05:12 Basophils % 1 % 04/10/17 05:12 Neutrophils # 4.0 k/uL (1.3-7.7) 04/10/17 05:12 Lymphocytes # 3.1 k/uL (1.0-4.8) 04/10/17 05:12 Monocytes # 0.5 k/uL (0-1.0) 04/10/17 05:12 Eosinophils # 0.5 k/uL (0-0.7) 04/10/17 05:12 Basophils # 0.1 k/uL (0-0.2) 04/10/17 05:12 ESR 16 mm/hr (0-15) H 04/09/17 00:30 Sodium 140 mmol/L (137-145) 04/14/17 08:22 Potassium 3.9 mmol/L (3.5-5.1) 04/14/17 08:22 Chloride 104 mmol/L (98-107) 04/14/17 08:22 Carbon Dioxide 26 mmol/L (22-30) 04/14/17 08:22 Anion Gap 10 mmol/L 04/14/17 08:22 BUN 11 mg/dL (9-20) 04/14/17 08:22 Creatinine 0.73 mg/dL (0.66-1.25) 04/14/17 08:22 Est GFR (MDRD) Af Amer >60 (>60 ml/min/1.73 sqM) 04/14/17 08:22 Est GFR (MDRD) Non-Af >60 (>60 ml/min/1.73 sqM) 04/14/17 08:22 Glucose 113 mg/dL (74-99) H 04/14/17 08:22 Uric Acid 6.1 mg/dL (3.5-8.5) 04/09/17 00:30 Calcium 9.2 mg/dL (8.4-10.2) 04/14/17 08:22 C-Reactive Protein 30.4 mg/L (<10.0) H 04/12/17 06:46 Vancomycin Trough 15.6 ug/mL 04/13/17 11:17 Microbiology 04/10/17 09:39 Elbow - Right Anaerobic Culture - Final 04/10/17 09:39 Elbow - Right Anaerobic Culture - Final 04/10/17 09:39 Elbow - Right Gram Stain - Final 04/10/17 09:39 Elbow - Right Wound Culture - Final 04/10/17 09:39 Elbow - Right Gram Stain - Final 04/10/17 09:39 Elbow - Right Wound Culture - Final Assessment and Plan (1) Elbow injury Narrative/Plan: 21 year old male with fall and injury to the right elbow has occurred and is evaluated by orthopedics and MRI requested to evaluate for fracture, abscess, hemarthrosis or other trauma. It will help determine need for surgical intervention Vanco was started and with the trauma would also add ceftazidime with concern to gram negative infection including pseudomonas Elevated crp in keepings with an infection at the site Multiple deep tissue cultures were sent from surgery. Fortunately are negative. We'll be able to alter him to oral antibiotic therapy and discharge today. Cefuroxime 500 mg every 12 hours will be planned for a week at home. Follow surgery in the outpatient setting Status: Acute
== END 2017-04-14 12:38 | disposition home or self-care (01) | DRG 511 ==
LOC: EC 22:02 → OBSVTOIN 04-09 02:33 → 3OBS 04-09 02:33 → INTOOBSV 04-09 02:33 → 4MS4W 04-10 15:57
PROVIDERS: ADMIT Internal Medicine; ATTEND Internal Medicine
PROC: 0R9L0ZX Drainage of Right Elbow Joint, Open Approach, Diagnostic (ICD-10-PCS; 2017-04-10)
PROC: 0RBL0ZZ Excision of Right Elbow Joint, Open Approach (ICD-10-PCS; principal; 2017-04-10 08:40)
DX: M00.9 Pyogenic arthritis, unspecified (principal); L03.113 Cellulitis of right upper limb; B37.0 Candidal stomatitis; M25.00 Hemarthrosis, unspecified joint; Z71.6 Tobacco abuse counseling; F17.210 Nicotine dependence, cigarettes, uncomplicated; F31.9 Bipolar disorder, unspecified; F41.9 Anxiety disorder, unspecified; F12.90 Cannabis use, unspecified, uncomplicated; S59.901S Unspecified injury of right elbow, sequela; W18.30XS Fall on same level, unspecified, sequela; M65.9 Synovitis and tenosynovitis, unspecified
CPT/HCPCS: 36415; 80048; 80202; 84550; 85025; 85027; 85652; 86140; 87070; 87075; 87205; 96365; 99284

== ENCOUNTER 2017-10-14 22:03 | Emergency (ER) | payer OTHER ==
[2017-10-14 22:09] VITALS: BP 129/62; PULSE 90; RESP 18; TEMP 98.1
[2017-10-14] MEDS ORDERED: CLOTRIMAZOLE 1% CREAM 15 GM TUBE TOPICAL STA (22:25)
--- NOTE | 2017-10-14 22:26 | ED ---
Male Urogenital HPI - General Chief complaint: Urogenital Stated complaint: Male Time Seen by Provider: 10/14/17 22:10 Source: patient Mode of arrival: ambulatory Limitations: no limitations - History of Present Illness Initial comments: This is a 22-year-old male who presents emergency department for burning and discomfort at the tip of the penis. He states that the symptoms started 2 days ago and it gradually worsened. He states that there is redness along the penis and swelling as well. He states he has not had any dysuria or abdominal discomfort. No penile discharge. No lesions that he is noticed. He states that he's never had this happen before. He states he does have excessive foreskin in that area however was circumcised. He denies a history of this before. No other acute complaints. - Related Data Previous Rx's Medication Instructions Recorded Cefuroxime [Ceftin] 500 mg PO BID #28 tab 04/14/17 Famotidine [Pepcid] 20 mg PO BID #14 tab 04/14/17 HYDROcodone/APAP 10-325MG [[place] 1 tab PO Q8H PRN #15 tab 04/14/17 10-325] Ibuprofen [Motrin] 600 mg PO Q6HR PRN #20 tab 04/14/17 Nicotine 21Mg/24Hr Patch [Habitrol] 1 patch TRANSDERM DAILY #14 patch 04/14/17 Ketoconazole 2% Cream [Nizoral 2%] 1 applic TOPICAL BID #30 gm 10/14/17 Allergies Allergy/AdvReac Type Severity Reaction Status Date / Time coconut AdvReac Itching Verified 10/14/17 22:08 Review of Systems ROS Statement: Those systems with pertinent positive or pertinent negative responses have been documented in the HPI. ROS Other: All systems not noted in ROS Statement are negative. Past Medical History Past Medical History: No Reported History History of Any Multi-Drug Resistant Organisms: None Reported Past Surgical History: Orthopedic Surgery Additional Past Surgical History / Comment(s): right elbow Past Anesthesia/Blood Transfusion Reactions: No Reported Reaction Past Psychological History: Anxiety, Bipolar Smoking Status: Current every day smoker Past Alcohol Use History: Occasional Past Drug Use History: Marijuana - Past Family History Father Additional Family Medical History / Comment(s): no known hx General Exam - General Exam Comments Initial Comments: Constitutional: Awake alert Appears comfortable Head: Normocephalic atraumatic Eyes: no conjunctival injection No scleral icterus EOMI Neck: No JVD Supple Heart: Regular rate rhythm normal S1-S2 no murmurs Lungs: Clear to auscultation bilaterally No wheezing No rales Abdomen: Soft nondistended nontender : There is erythema and some sloughing of skin along the glands just adjacent to the foreskin, no penile discharge or irritation. The urethra, no lesions, no testicular tenderness Extremities: Non edematous DP pulses intact Radial pulses intact Neuro: A&Ox3 No focal neurologic deficits Psych: Appropriate mood and affect Limitations: no limitations Course Vital Signs 10/14/17 22:05 Temperature 98.1 F Pulse Rate 90 Respiratory 18 Rate Blood Pressure 129/62 O2 Sat by Pulse 98 Oximetry Medical Decision Making - Medical Decision Making Is a 22-year-old male who presented for penile pain. The patient has appears to be balanitis. Likely secondary to excessive moisture from his foreskin. The patient was instructed on proper hygiene of this area. He will be started on ketoconazole cream and told to follow-up with his primary doctor for reevaluation next few days. Told to return if he has worsening symptoms including penile discharge or dysuria or develops any open sores or lesions. All questions were answered. Disposition Clinical Impression: Balanitis Disposition: HOME SELF-CARE Condition: Stable Instructions: Balanitis (ED) Prescriptions: Ketoconazole 2% Cream [Nizoral 2%] 1 applic TOPICAL BID #30 gm Referrals: None,Stated [Primary Care Provider] - 1-2 days
== END 2017-10-14 22:49 | disposition home or self-care (01) ==
LOC: EC 22:03
DX: N48.1 Balanitis (principal); F17.200 Nicotine dependence, unspecified, uncomplicated; Z91.018 Allergy to other foods
CPT/HCPCS: 99283

== ENCOUNTER 2017-12-10 11:11 | Emergency (ER) | payer OTHER ==
[2017-12-10] MEDS ORDERED: ONDANSETRON 4 MG ODT STARTER PACK 2 TAB BTL PO STA (13:23)
[2017-12-10] MEDS ORDERED: AMOXICILLIN 500MG STARTER PACK 3 CAP BTL PO STA (13:23)
--- NOTE | 2017-12-10 13:27 | ED ---
Nausea/Vomiting/Diarrhea HPI - General Chief complaint: Nausea/Vomiting/Diarrhea Stated complaint: SORE THROAT, VOMITING Time Seen by Provider: 12/10/17 12:03 Source: patient, RN notes reviewed, old records reviewed Mode of arrival: ambulatory Limitations: no limitations - History of Present Illness Initial comments: Patient's 22-year-old options were informed to plan of sore throat for the past week. He reports that he was at work today and had an episode of vomiting. Her sent here for further evaluation. Denies any abdominal pain. Denies any fever or chills. He states that his throat is very sore swallow anything. He states he's had no history of sick contacts that he is aware of. No bloody emesis. - Related Data Home Medications Medication Instructions Recorded Confirmed [id number] 2 tab PO Q4HR PRN 12/10/17 12/10/17 [Excedrin] Previous Rx's Medication Instructions Recorded Amoxicillin 500 mg PO Q8H #30 capsule 12/10/17 Ondansetron Odt [Zofran Odt] 4 mg PO Q8HR PRN #12 tab 12/10/17 Allergies Allergy/AdvReac Type Severity Reaction Status Date / Time coconut AdvReac Itching Verified 12/10/17 13:05 Review of Systems ROS Statement: Those systems with pertinent positive or pertinent negative responses have been documented in the HPI. ROS Other: All systems not noted in ROS Statement are negative. Past Medical History Past Medical History: No Reported History History of Any Multi-Drug Resistant Organisms: None Reported Past Surgical History: Orthopedic Surgery Additional Past Surgical History / Comment(s): right elbow Past Anesthesia/Blood Transfusion Reactions: No Reported Reaction Past Psychological History: Anxiety, Bipolar Smoking Status: Current every day smoker Past Alcohol Use History: Occasional Past Drug Use History: Marijuana - Past Family History Father Additional Family Medical History / Comment(s): no known hx General Exam - General Exam Comments Initial Comments: 22-year-old male. Alert and oriented. No acute distress. Limitations: no limitations General appearance: alert, in no apparent distress Head exam: Present: atraumatic, normocephalic, normal inspection Eye exam: Present: normal appearance, PERRL, EOMI. Absent: scleral icterus, conjunctival injection, periorbital swelling ENT exam: Present: normal exam, normal oropharynx (Erythematous oropharynx.), mucous membranes moist Neck exam: Present: normal inspection. Absent: tenderness, meningismus, lymphadenopathy Respiratory exam: Present: normal lung sounds bilaterally Cardiovascular Exam: Present: regular rate, normal rhythm, normal heart sounds. Absent: systolic murmur, diastolic murmur, rubs, gallop, clicks GI/Abdominal exam: Present: soft, normal bowel sounds. Absent: distended, tenderness, guarding, rebound, rigid Extremities exam: Present: normal inspection, full ROM, normal capillary refill. Absent: tenderness, pedal edema, joint swelling, calf tenderness Back exam: Present: normal inspection Neurological exam: Present: alert, oriented X3, CN II-XII intact Psychiatric exam: Present: normal affect, normal mood Skin exam: Present: warm, dry, intact, normal color. Absent: rash Course Vital Signs 12/10/17 12/10/17 11:20 13:40 Temperature 98.1 F 99.0 F Pulse Rate 83 70 Respiratory 20 18 Rate Blood Pressure 115/73 162/62 O2 Sat by Pulse 98 97 Oximetry Medical Decision Making - Medical Decision Making 22-year-old male presents raise from his acute NH sore throat. He does have erythematous or thinks. Do anticipate strep. We'll treat the patient with amoxicillin. No abdominal tenderness. He otherwise appears well. Vital signs are stable. Discussed that I'll discharge him with Zofran for nausea. He can follow-up with PCP. He has any abdominal pain or continued vomiting, for reevaluation IV fluids at that time. He agrees. We'll be discharging him with amoxicillin for strep pharyngitis and Zofran for nausea. Disposition Clinical Impression: Strep pharyngitis, Vomiting Disposition: HOME SELF-CARE Condition: Good Instructions: Strep Throat (ED) Additional Instructions: Patient has a take the medications as prescribed. Rest, remain hydrated. Take nausea medicine as needed every 8 hours. Return to the emergency department if any alarming signs or symptoms occur. Prescriptions: Amoxicillin 500 mg PO Q8H #30 capsule Ondansetron Odt [Zofran Odt] 4 mg PO Q8HR PRN #12 tab PRN Reason: Nausea Is patient prescribed a controlled substance at d/c from ED?: No If prescribed controlled substance>3 days was MAPS reviewed?: No When asked, does pt state using other controlled substances?: No Referrals: None,Stated [Primary Care Provider] - 1-2 days Time of Disposition: 13:25
[2017-12-10 13:41] VITALS: BP 162/62; PULSE 70; RESP 18; TEMP 99
== END 2017-12-10 13:41 | disposition home or self-care (01) ==
LOC: EC 11:11
DX: J02.0 Streptococcal pharyngitis (principal); F17.200 Nicotine dependence, unspecified, uncomplicated; Z91.018 Allergy to other foods
CPT/HCPCS: 87070; 99284; S0119

== ENCOUNTER 2018-10-01 14:28 | Emergency (ER) | payer OTHER ==
--- NOTE | 2018-10-01 15:23 | ED ---
General Adult HPI - General Chief complaint: Shortness of Breath Stated complaint: lung pain, PETE Time Seen by Provider: 10/01/18 15:07 Source: patient, RN notes reviewed, old records reviewed Mode of arrival: wheelchair Limitations: no limitations - History of Present Illness Initial comments: 23-year-old male with sudden onset left-sided posterior chest pain. Pain is associated with dyspnea. Patient has no history of CAD, no history of DVT or PE, no history of pneumothorax. Denies any preceding symptoms, no cough, no fever. He reports moderate dyspnea and worsening pain with deep inspiration. Pain has progressed from left-sided posterior to bilateral posterior chest pain. Patient denies injury or trauma. States he was holding a sign at the time the symptoms began. No abdominal pain. No diaphoresis. - Related Data Previous Rx's Medication Instructions Recorded Albuterol Inhaler [Ventolin Hfa 1 - 2 puff INHALATION Q4HR PRN #1 10/01/18 Inhaler] inhaler Ibuprofen [Motrin] 600 mg PO Q8HR PRN #24 tab 10/01/18 Allergies Allergy/AdvReac Type Severity Reaction Status Date / Time coconut AdvReac Itching Verified 10/01/18 14:45 Review of Systems ROS Statement: Those systems with pertinent positive or pertinent negative responses have been documented in the HPI. ROS Other: All systems not noted in ROS Statement are negative. Past Medical History Past Medical History: No Reported History History of Any Multi-Drug Resistant Organisms: None Reported Past Surgical History: Orthopedic Surgery Additional Past Surgical History / Comment(s): right elbow Past Anesthesia/Blood Transfusion Reactions: No Reported Reaction Past Psychological History: Anxiety, Bipolar Smoking Status: Current every day smoker Past Alcohol Use History: Occasional Past Drug Use History: Marijuana - Past Family History Father Additional Family Medical History / Comment(s): no known hx General Exam Limitations: no limitations General appearance: alert, in no apparent distress Head exam: Present: atraumatic, normocephalic Eye exam: Present: normal appearance, PERRL ENT exam: Present: normal exam Neck exam: Present: normal inspection. Absent: tenderness, meningismus Respiratory exam: Present: respiratory distress (mild), decreased breath sounds (Decreased breath sounds, right lower lung varela). Absent: normal lung sounds bilaterally, wheezes, chest wall tenderness Cardiovascular Exam: Present: normal rhythm, tachycardia GI/Abdominal exam: Present: soft. Absent: distended, tenderness Extremities exam: Present: normal inspection, normal capillary refill. Absent: pedal edema, calf tenderness Neurological exam: Present: alert, oriented X3, CN II-XII intact. Absent: motor sensory deficit Psychiatric exam: Present: normal affect, normal mood Skin exam: Present: warm, dry, intact. Absent: cyanosis, diaphoretic Course Vital Signs 10/01/18 10/01/18 10/01/18 14:34 15:28 18:18 Temperature 98.4 F 98.3 F Pulse Rate 118 H 59 L Respiratory 24 20 16 Rate Blood Pressure 110/54 120/73 O2 Sat by Pulse 98 94 L Oximetry EKG Findings - EKG Comments: EKG Findings:: G: Normal sinus rhythm with sinus arrhythmia, ventricular rate 94, NM interval 134, QRS duration 88, QTC 422, no ST segment changes Medical Decision Making - Medical Decision Making 23-year-old male presenting with dyspnea, and posterior chest pain. Single view chest x-rays obtained, negative for pneumothorax or acute findings. Patient has nonischemic EKG. Patient is elevated white blood cell count 19.8, may be reactive, hemoglobin 16.0, CMP within normal limits, troponin is negative. Patient given Toradol, fluids, reevaluation vital signs improved, his pain is improved her respirations have improved without treatment. Uncertain of the exact cause of his symptoms. He does have good air entry, he has mild bronchospastic cough, will be treated with albuterol. Given Motrin for pain. Will follow-up with primary care physician regarding leukocytosis for repeat laboratory studies within the next several weeks. - Lab Data Result diagrams: 10/01/18 16:04 10/01/18 16:04 Lab Results 10/01/18 10/01/18 10/01/18 Range/Units 16:04 16:04 16:04 WBC 19.8 H (3.8-10.6) k/uL RBC 5.62 (4.30-5.90) m/uL Hgb 16.0 (13.0-17.5) gm/dL Hct 48.0 (39.0-53.0) % MCV 85.3 (80.0-100.0) fL MCH 28.4 (25.0-35.0) pg MCHC 33.3 (31.0-37.0) g/dL RDW 13.3 (11.5-15.5) % Plt Count 336 (150-450) k/uL Neutrophils % 81 % Lymphocytes % 12 % Monocytes % 5 % Eosinophils % 2 % Basophils % 0 % Neutrophils # 15.9 H (1.3-7.7) k/uL Lymphocytes # 2.4 (1.0-4.8) k/uL Monocytes # 1.0 (0-1.0) k/uL Eosinophils # 0.3 (0-0.7) k/uL Basophils # 0.1 (0-0.2) k/uL PT 10.2 (9.0-12.0) sec INR 0.9 (<1.2) APTT 22.8 (22.0-30.0) sec D-Dimer 0.22 (<0.60) mg/L FEU Sodium 139 (137-145) mmol/L Potassium 4.7 (3.5-5.1) mmol/L Chloride 106 (98-107) mmol/L Carbon Dioxide 24 (22-30) mmol/L Anion Gap 9 mmol/L BUN 21 H (9-20) mg/dL Creatinine 0.96 (0.66-1.25) mg/dL Est GFR (CKD-EPI)AfAm >90 (>60 ml/min/1.73 sqM) Est GFR (CKD-EPI)NonAf >90 (>60 ml/min/1.73 sqM) Glucose 67 L (74-99) mg/dL Calcium 10.2 (8.4-10.2) mg/dL Magnesium 1.8 (1.6-2.3) mg/dL Total Bilirubin 0.8 (0.2-1.3) mg/dL AST 34 (17-59) U/L ALT 36 (21-72) U/L Alkaline Phosphatase 72 (38-126) U/L Troponin I (0.000-0.034) ng/mL NT-Pro-B Natriuret Pep pg/mL Total Protein 7.9 (6.3-8.2) g/dL Albumin 4.9 (3.5-5.0) g/dL 10/01/18 10/01/18 Range/Units 16:04 16:04 WBC (3.8-10.6) k/uL RBC (4.30-5.90) m/uL Hgb (13.0-17.5) gm/dL Hct (39.0-53.0) % MCV (80.0-100.0) fL MCH (25.0-35.0) pg MCHC (31.0-37.0) g/dL RDW (11.5-15.5) % Plt Count (150-450) k/uL Neutrophils % % Lymphocytes % % Monocytes % % Eosinophils % % Basophils % % Neutrophils # (1.3-7.7) k/uL Lymphocytes # (1.0-4.8) k/uL Monocytes # (0-1.0) k/uL Eosinophils # (0-0.7) k/uL Basophils # (0-0.2) k/uL PT (9.0-12.0) sec INR (<1.2) APTT (22.0-30.0) sec D-Dimer (<0.60) mg/L FEU Sodium (137-145) mmol/L Potassium (3.5-5.1) mmol/L Chloride (98-107) mmol/L Carbon Dioxide (22-30) mmol/L Anion Gap mmol/L BUN (9-20) mg/dL Creatinine (0.66-1.25) mg/dL Est GFR (CKD-EPI)AfAm (>60 ml/min/1.73 sqM) Est GFR (CKD-EPI)NonAf (>60 ml/min/1.73 sqM) Glucose (74-99) mg/dL Calcium (8.4-10.2) mg/dL Magnesium (1.6-2.3) mg/dL Total Bilirubin (0.2-1.3) mg/dL AST (17-59) U/L ALT (21-72) U/L Alkaline Phosphatase (38-126) U/L Troponin I <0.012 (0.000-0.034) ng/mL NT-Pro-B Natriuret Pep 51 pg/mL Total Protein (6.3-8.2) g/dL Albumin (3.5-5.0) g/dL Disposition Clinical Impression: Dyspnea, Chest pain, Bronchospasm Disposition: HOME SELF-CARE Condition: Good Instructions (If sedation given, give patient instructions): Bronchospasm (ED) Prescriptions: Ibuprofen [Motrin] 600 mg PO Q8HR PRN #24 tab PRN Reason: Pain Albuterol Inhaler [Ventolin Hfa Inhaler] 1 - 2 puff INHALATION Q4HR PRN #1 inhaler PRN Reason: Shortness Of Breath Is patient prescribed a controlled substance at d/c from ED?: No Referrals: None,Stated [Primary Care Provider] - 1-2 days Leticia Davison MD [STAFF PHYSICIAN] - 1-2 days Time of Disposition: 18:28
--- NOTE | 2018-10-01 15:35 | XR ---
EXAMINATION TYPE: XR chest 1V portable DATE OF EXAM: 10/01/2018 COMPARISON: Prior chest 09/05/2015 HISTORY: Shortness of breath, difficulty breathing TECHNIQUE: Single frontal view of the chest is obtained. FINDINGS: Patient is rotated. There is no focal air space opacity, pleural effusion, or pneumothorax seen. The cardiac silhouette size is within normal limits. The osseous structures are intact. IMPRESSION: No acute process.
[2018-10-01 16:15] LABS: Basophils # (A) 0.1 k/uL (0-0.2); Basophils % (A) 0 %; Eosinophils # (A) 0.3 k/uL (0-0.7); Eosinophils % (A) 2 %; Lymphocytes # (A) 2.4 k/uL (1.0-4.8); Lymphocytes % (A) 12 %; MCH 28.4 pg (25.0-35.0); MCHC 33.3 g/dL (31.0-37.0); MCV 85.3 fL (80.0-100.0); Mean Platelet Volume 6.5; Monocytes % (A) 5 %; Neutrophils # (A) 15.9 k/uL (1.3-7.7); Neutrophils % (A) 81 %; Platelet Count 336 k/uL (150-450); RBC 5.62 m/uL (4.30-5.90); RDW 13.3 % (11.5-15.5); WBC 19.8 k/uL (3.8-10.6)
[2018-10-01 16:27] LABS: ALT 36 U/L (21-72); AST 34 U/L (17-59); Albumin 4.9 g/dL (3.5-5.0); Alkaline Phosphatase 72 U/L (38-126); Anion Gap 9 mmol/L; Blood Urea Nitrogen 21 mg/dL (9-20); Calcium 10.2 mg/dL (8.4-10.2); Carbon Dioxide 24 mmol/L (22-30); Chloride 106 mmol/L (98-107); Glucose 67 mg/dL (74-99); Magnesium 1.8 mg/dL (1.6-2.3); Potassium 4.7 mmol/L (3.5-5.1); Sodium 139 mmol/L (137-145); Total Bilirubin 0.8 mg/dL (0.2-1.3); Total Protein 7.9 g/dL (6.3-8.2)
[2018-10-01 16:33] LABS: D-Dimer 0.22 mg/L FEU (<0.60); INR 0.9 (<1.2); Partial Thromboplastin Time 22.8 sec (22.0-30.0); Prothrombin Time 10.2 sec (9.0-12.0)
[2018-10-01] MEDS ORDERED: SODIUM CHLORIDE 0.9% 1,000 ML IV ONE (16:49)
[2018-10-01] MEDS ORDERED: KETOROLAC 30 MG/ML 1 ML VIAL IVP STA (17:10)
--- NOTE | 2018-10-01 18:07 | CT ---
EXAMINATION TYPE: CT angio chest with contrast and with 3-D Reconstruction renderingS DATE OF EXAM: 10/01/2018 5:18 PM COMPARISON: None HISTORY: SOB CT DLP: 394.8 mGycm Automated exposure control for dose reduction was used. CONTRAST: CTA scan of the thorax is performed with IV Contrast, patient injected with 100 mL of Isovue 370, pul monary embolism protocol. 3-D reconstructions. FINDINGS: LUNGS AND PLEURAL SPACES, AND AIRWAYS: The lungs are grossly clear, there is no concerning parenchyma l mass or nodule identified. There is no pleural effusion or pneumothorax seen. The tracheobronchi al tree is patent. MEDIASTINUM: There is satisfactory enhancement of the pulmonary artery and its branches, there is no CT evidence for pulmonary embolism. The aorta is unremarkable. There is no cardiomegaly or pericardia l effusion. There are no greater than 1 cm hilar or mediastinal lymph nodes. No pericardial effusio n is seen. OTHER: No additional significant abnormality is seen. IMPRESSION: NO ACUTE PROCESS.
[2018-10-01 18:43] VITALS: BP 134/87; PULSE 87; RESP 18; TEMP 97.8
== END 2018-10-01 18:43 | disposition home or self-care (01) ==
LOC: EC 14:28
DX: J98.01 Acute bronchospasm (principal); F17.200 Nicotine dependence, unspecified, uncomplicated; Z91.018 Allergy to other foods
CPT/HCPCS: 36415; 71045; 71275; 80053; 83735; 83880; 84484; 85025; 85379; 85610; 85730; 93005; 96361; 96374; 99285

== ENCOUNTER 2021-07-21 13:48 | Emergency (ER) | payer OTHER ==
[2021-07-21 15:34] VITALS: TEMP 99
[2021-07-21 16:28] LABS: Appearance,Urine Clear (Clear); Bilirubin,Urine Negative (Negative); Blood,Urine Large (Negative); Color,Urine Yellow; Glucose,Urine (UA) Negative (Negative); Ketones,Urine Negative (Negative); Leukocyte Esterase,Urine Trace (Negative); Mucus,Urine Rare /hpf; Nitrite,Urine Negative (Negative); Protein,Urine Trace (Negative); RBC,Urine >182 /hpf (0-5); Specific Gravity,Urine 1.026 (1.001-1.035); Urobilinogen,Urine <2.0 mg/dL (<2.0); WBC,Urine 10 /hpf (0-5)
--- NOTE | 2021-07-21 17:11 | XR ---
EXAMINATION TYPE: XR KUB DATE OF EXAM: 07/21/2021 5:01 PM CLINICAL HISTORY: Abdominal pain TECHNIQUE: Two Upright KUB images of the abdomen are obtained. COMPARISON: Abdominal radiograph 12/19/2016 FINDINGS: Scattered gas is seen in non-distended small bowel loops. Gas and fecal material is seen in non-diste nded colon. There is no visceromegaly, pneumoperitoneum, or abnormal calcification appreciated. The l kalie bases are clear and the osseous structures are intact. IMPRESSION: Overall nonobstructive bowel gas pattern.
--- NOTE | 2021-07-21 17:21 | ED ---
General Adult HPI - General Chief complaint: Urogenital Stated complaint: bladder problems Time Seen by Provider: 07/21/21 17:05 Source: patient, RN notes reviewed, old records reviewed Mode of arrival: ambulatory Limitations: no limitations - History of Present Illness Initial comments: Well-appearing 25-year-old male presents to the emergency room with complaints of hematuria on and off for a month. He states that some days it is clear other days it is bloody. Patient does state that he has left flank pain at times that radiates across his lower back bilaterally. He denies any fevers, vomiting or diarrhea. He is a smoker. Denies any medical history, no medicines on a daily basis. Denies history of kidney stones. -: month(s) (1) Location: left (flank) Radiation: flank (bilateral) Severity scale (1-10): 5 Quality: stabbing, sharp Consistency: intermittent Improves with: none Worsens with: none Associated Symptoms: other (hematuria) - Related Data Previous Rx's Medication Instructions Recorded Albuterol Inhaler (Mhu) [Ventolin 1 - 2 puff INHALATION Q4HR PRN #1 10/01/18 Hfa Inhaler (Mhu)] inhaler Ibuprofen [Motrin] 600 mg PO Q8HR PRN #24 tab 10/01/18 Allergies Allergy/AdvReac Type Severity Reaction Status Date / Time coconut AdvReac Itching Verified 07/21/21 15:34 Review of Systems ROS Statement: Those systems with pertinent positive or pertinent negative responses have been documented in the HPI. ROS Other: All systems not noted in ROS Statement are negative. Past Medical History Past Medical History: No Reported History History of Any Multi-Drug Resistant Organisms: None Reported Past Surgical History: Orthopedic Surgery Additional Past Surgical History / Comment(s): right elbow Past Anesthesia/Blood Transfusion Reactions: No Reported Reaction Past Psychological History: Anxiety, Bipolar Smoking Status: Current every day smoker, Vaper Past Alcohol Use History: Occasional Past Drug Use History: Marijuana - Past Family History Father Additional Family Medical History / Comment(s): no known hx General Exam Limitations: no limitations General appearance: alert, in no apparent distress Head exam: Present: atraumatic, normocephalic, normal inspection Eye exam: Present: normal appearance, EOMI Neck exam: Present: normal inspection, full ROM. Absent: tenderness, meningismus, lymphadenopathy Respiratory exam: Present: normal lung sounds bilaterally. Absent: respiratory distress, wheezes, rales, rhonchi, stridor Cardiovascular Exam: Present: regular rate, normal rhythm, normal heart sounds. Absent: systolic murmur, diastolic murmur, rubs, gallop, clicks, JVD GI/Abdominal exam: Present: soft, normal bowel sounds. Absent: distended, tenderness, guarding, rebound, rigid Extremities exam: Present: full ROM, normal capillary refill. Absent: tenderness, pedal edema, joint swelling, calf tenderness Back exam: Present: normal inspection, full ROM, CVA tenderness (L). Absent: muscle spasm, paraspinal tenderness, vertebral tenderness, rash noted Neurological exam: Present: alert, oriented X3, normal gait Psychiatric exam: Present: normal affect, normal mood Skin exam: Present: warm, dry, intact, normal color. Absent: rash, cyanosis, diaphoretic, petechiae, pallor Course Vital Signs 07/21/21 07/21/21 15:32 19:35 Temperature 99 F Pulse Rate 88 78 Respiratory 16 18 Rate Blood Pressure 131/77 157/81 O2 Sat by Pulse 99 95 Oximetry Medical Decision Making - Medical Decision Making Well-appearing 25-year-old male presents to the emergency room with complaints of hematuria on and off for a month. He states it is intermittent and some days it is clear. He denies fevers or dysuria. He denies any abdominal pain. He has no history of kidney stones. No medicines on a daily basis. He is a smoker. UA shows trace protein, large blood and greater than 182 RBCs. No evidence of infection. Ultrasound reveals normal bladder and normal left and right kidneys. There is no evidence of hydronephrosis or nephrolithiasis seen. No masses are identified. Hemoglobin and hematocrit are stable at 15 and 48 respectively. Electrolytes are unremarkable. Blood glucose is 65 and patient was given something to eat and drink. He was instructed to follow-up with urology this week. Return to the emergency room with any new or worsening symptoms including increased pain, fevers or inability to urinate. - Lab Data Result diagrams: 07/21/21 18:28 07/21/21 18:28 Lab Results 07/21/21 07/21/21 07/21/21 Range/Units 15:52 18:28 18:28 WBC 13.4 H (3.8-10.6) k/uL RBC 5.49 (4.30-5.90) m/uL Hgb 15.9 (13.0-17.5) gm/dL Hct 48.4 (39.0-53.0) % MCV 88.1 (80.0-100.0) fL MCH 28.9 (25.0-35.0) pg MCHC 32.8 (31.0-37.0) g/dL RDW 12.7 (11.5-15.5) % Plt Count 352 (150-450) k/uL MPV 7.2 Neutrophils % 62 % Lymphocytes % 25 % Monocytes % 7 % Eosinophils % 4 % Basophils % 1 % Neutrophils # 8.4 H (1.3-7.7) k/uL Lymphocytes # 3.4 (1.0-4.8) k/uL Monocytes # 0.9 (0-1.0) k/uL Eosinophils # 0.6 (0-0.7) k/uL Basophils # 0.1 (0-0.2) k/uL PT (9.0-12.0) sec INR (<1.2) Sodium 139 (137-145) mmol/L Potassium 4.3 (3.5-5.1) mmol/L Chloride 104 (98-107) mmol/L Carbon Dioxide 26 (22-30) mmol/L Anion Gap 9 mmol/L BUN 14 (9-20) mg/dL Creatinine 0.84 (0.66-1.25) mg/dL Est GFR (CKD-EPI)AfAm >90 (>60 ml/min/1.73 sqM) Est GFR (CKD-EPI)NonAf >90 (>60 ml/min/1.73 sqM) Glucose 65 L (74-99) mg/dL Calcium 9.3 (8.4-10.2) mg/dL Total Bilirubin 0.3 (0.2-1.3) mg/dL AST 26 (17-59) U/L ALT 35 (4-49) U/L Alkaline Phosphatase 80 (38-126) U/L Total Protein 7.1 (6.3-8.2) g/dL Albumin 4.2 (3.5-5.0) g/dL Urine Color Yellow Urine Appearance Clear (Clear) Urine pH 6.0 (5.0-8.0) Ur Specific [place] 1.026 (1.001-1.035) Urine Protein Trace H (Negative) Urine Glucose (UA) Negative (Negative) Urine Ketones Negative (Negative) Urine Blood Large H (Negative) Urine Nitrite Negative (Negative) Urine Bilirubin Negative (Negative) Urine Urobilinogen <2.0 (<2.0) mg/dL Ur Leukocyte Esterase Trace H (Negative) Urine RBC >182 H (0-5) /hpf Urine WBC 10 H (0-5) /hpf Urine Mucus Rare H (None) /hpf 07/21/21 Range/Units 18:28 WBC (3.8-10.6) k/uL RBC (4.30-5.90) m/uL Hgb (13.0-17.5) gm/dL Hct (39.0-53.0) % MCV (80.0-100.0) fL MCH (25.0-35.0) pg MCHC (31.0-37.0) g/dL RDW (11.5-15.5) % Plt Count (150-450) k/uL MPV Neutrophils % % Lymphocytes % % Monocytes % % Eosinophils % % Basophils % % Neutrophils # (1.3-7.7) k/uL Lymphocytes # (1.0-4.8) k/uL Monocytes # (0-1.0) k/uL Eosinophils # (0-0.7) k/uL Basophils # (0-0.2) k/uL PT 9.6 (9.0-12.0) sec INR 0.9 (<1.2) Sodium (137-145) mmol/L Potassium (3.5-5.1) mmol/L Chloride (98-107) mmol/L Carbon Dioxide (22-30) mmol/L Anion Gap mmol/L BUN (9-20) mg/dL Creatinine (0.66-1.25) mg/dL Est GFR (CKD-EPI)AfAm (>60 ml/min/1.73 sqM) Est GFR (CKD-EPI)NonAf (>60 ml/min/1.73 sqM) Glucose (74-99) mg/dL Calcium (8.4-10.2) mg/dL Total Bilirubin (0.2-1.3) mg/dL AST (17-59) U/L ALT (4-49) U/L Alkaline Phosphatase (38-126) U/L Total Protein (6.3-8.2) g/dL Albumin (3.5-5.0) g/dL Urine Color Urine Appearance (Clear) Urine pH (5.0-8.0) Ur Specific [place] (1.001-1.035) Urine Protein (Negative) Urine Glucose (UA) (Negative) Urine Ketones (Negative) Urine Blood (Negative) Urine Nitrite (Negative) Urine Bilirubin (Negative) Urine Urobilinogen (<2.0) mg/dL Ur Leukocyte Esterase (Negative) Urine RBC (0-5) /hpf Urine WBC (0-5) /hpf Urine Mucus (None) /hpf Disposition Clinical Impression: Hematuria Disposition: HOME SELF-CARE Condition: Good Instructions (If sedation given, give patient instructions): Hematuria (ED) Additional Instructions: You were given Toradol for pain today. Follow-up with urology this week. Return to the emergency room with any new or worsening symptoms Is patient prescribed a controlled substance at d/c from ED?: No Referrals: None,Stated [Primary Care Provider] - 1-2 days Devante Blum MD [STAFF PHYSICIAN] - 1-2 days Time of Disposition: 19:22
[2021-07-21] MEDS ORDERED: KETOROLAC 15 MG/ML 1 ML VIAL IVP STA (17:27)
[2021-07-21 18:36] LABS: Basophils # (A) 0.1 k/uL (0-0.2); Basophils % (A) 1 %; Eosinophils # (A) 0.6 k/uL (0-0.7); Eosinophils % (A) 4 %; HCT 48.4 % (39.0-53.0); HGB 15.9 gm/dL (13.0-17.5); Lymphocytes # (A) 3.4 k/uL (1.0-4.8); Lymphocytes % (A) 25 %; MCH 28.9 pg (25.0-35.0); MCHC 32.8 g/dL (31.0-37.0); MCV 88.1 fL (80.0-100.0); Mean Platelet Volume 7.2; Monocytes # (A) 0.9 k/uL (0-1.0); Monocytes % (A) 7 %; Neutrophils # (A) 8.4 k/uL (1.3-7.7); Neutrophils % (A) 62 %; Platelet Count 352 k/uL (150-450); RBC 5.49 m/uL (4.30-5.90); RDW 12.7 % (11.5-15.5); WBC 13.4 k/uL (3.8-10.6)
[2021-07-21 18:49] LABS: INR 0.9 (<1.2); Prothrombin Time 9.6 sec (9.0-12.0)
[2021-07-21 18:53] LABS: ALT 35 U/L (4-49); AST 26 U/L (17-59); African American GFR (CKD) >90 (>60 ml/min/1.73 sqM); Albumin 4.2 g/dL (3.5-5.0); Alkaline Phosphatase 80 U/L (38-126); Anion Gap 9 mmol/L; Blood Urea Nitrogen 14 mg/dL (9-20); Calcium 9.3 mg/dL (8.4-10.2); Carbon Dioxide 26 mmol/L (22-30); Chloride 104 mmol/L (98-107); Glucose 65 mg/dL (74-99); Non-African American GFR(CKD) >90 (>60 ml/min/1.73 sqM); Potassium 4.3 mmol/L (3.5-5.1); Sodium 139 mmol/L (137-145); Total Bilirubin 0.3 mg/dL (0.2-1.3); Total Protein 7.1 g/dL (6.3-8.2)
--- NOTE | 2021-07-21 19:02 | US ---
EXAMINATION TYPE: US renals and bladder DATE OF EXAM: 07/21/2021 COMPARISON: NONE CLINICAL HISTORY: uti, back pain, hx of kidney stones. Pt states gross hematuria and flank pain x 1 m onth EXAM MEASUREMENTS: Right Kidney: 9.9 x 4.8 x 5.5 cm Left Kidney: 10.6 x 5.7 x 5.6 cm Right Kidney: wnl Left Kidney: wnl Bladder: wnl Bilateral Jets seen: Only right jet visualized There is no evidence for hydronephrosis at this point in time. No nephrolithiasis is seen. No bony s are identified. The urinary bladder is anechoic. Bilateral ureteral jets are seen. IMPRESSION: No evidence of obstructive uropathy.
[2021-07-21] MEDS ORDERED: ALPRAZolam 0.25 MG TAB PO PRN (19:23)
[2021-07-21] MEDS ORDERED: NALOXONE 0.4 MG/ML 1 ML VIAL IV PRN (19:23)
[2021-07-21] MEDS ORDERED: ACETAMINOPHEN TAB 325 MG TAB PO PRN (19:23)
[2021-07-21 19:37] VITALS: BP 157/81; PULSE 78; RESP 18
== END 2021-07-21 19:36 | disposition home or self-care (01) ==
LOC: EC 13:48
DX: R31.9 Hematuria, unspecified (principal); F41.9 Anxiety disorder, unspecified; F31.9 Bipolar disorder, unspecified; F17.200 Nicotine dependence, unspecified, uncomplicated; F12.90 Cannabis use, unspecified, uncomplicated
CPT/HCPCS: 99284; 96374; 36415; 80053; 85025; 85610; 81001; 74018; 76770; J1885

== ENCOUNTER → 2021-08-07 | Outpatient (CLI) | payer OTHER ==
--- NOTE | 2021-08-08 07:28 | CT ---
EXAMINATION TYPE: CT urogram wo/w con DATE OF EXAM: 08/07/2021 COMPARISON: Renal ultrasound and abdominal x-ray July 21, 2021. CTA chest October 01, 2018 HISTORY: Gross hematuria x1 month CT DLP: 3036.5 mGycm, Automated Exposure Control for Dose Reduction was Utilized. CONTRAST: CT scan of the abdomen and pelvis is performed without oral and without and with IV Contrast, patient injected with 100 mL of Isovue 300. Urogram protocol with 3-D reconstructed images created on an ind [employer] workstation and reviewed FINDINGS: KUB: Noncontrast images show no renal calculi bilaterally. Postcontrast images show symmetric cortico medullary uptake and excretion without concerning solid or cystic renal mass or hydronephrosis seen b ilaterally. There is satisfactory opacification of the bilateral ureters without obstructing calculus or suspicious filling defect. Bladder shows adequate distention without intraluminal mass or calculu s. LUNG BASES: Through 1.2 x 1.1 cm peripheral left lower lobe nodule or nodular consolidation axial alec ge [address] LIVER/GB: Noncontrast images show the liver isodense to spleen consistent with mild diffuse fatty inf iltration. PANCREAS: No significant abnormality is seen. SPLEEN: No significant abnormality is seen. ADRENALS: No significant abnormality is seen. BOWEL: Slightly suboptimal evaluation of bowel without enteric contrast. There is 4.2 x 2.8 cm fat de nsity central lesion in the sigmoid colon series 18 and axial image 68 corresponding to coronal image 82. Findings suspicious for large colonic lipoma. Normal-appearing appendix and cecum. No suspicious small or large bowel dilatation. PROSTATE/SEMINAL VESICLES: No gross abnormality seen. LYMPH NODES: No greater than 1cm abdominal or pelvic lymph nodes are appreciated. OSSEOUS STRUCTURES: There is sacralized L5 segment noted. OTHER: No significant additional abnormality is seen. IMPRESSION: 1. Source of gross hematuria not identified. 2. Well-defined slightly lobulated that dense 4.2 cm lesion in the mid sigmoid colon of the pelvis is suspicious for intraluminal mass or lipoma. Consider colonoscopy study or barium enema study to conf irm. 3. New peripheral 1.2 cm left lower lobe nodule or nodular consolidation. Advise follow-up contrast e nhanced chest CT to reassess this level and assess for possible additional new pulmonary nodules.
== END | disposition home or self-care (01) ==
LOC: RADCTMAIN 17:02
PROVIDERS: ATTEND Urology
DX: K63.89 Other specified diseases of intestine (principal); R91.1 Solitary pulmonary nodule
CPT/HCPCS: 74178; 74400; Q9967

== ENCOUNTER 2021-10-07 17:07 | Emergency (ER) | payer OTHER ==
[2021-10-07] MEDS ORDERED: KETOROLAC 15 MG/ML 1 ML VIAL IVP STA (22:00)
--- NOTE | 2021-10-07 22:03 | ED ---
General Adult HPI - General Chief complaint: Extremity Problem,Nontraumatic Stated complaint: swelling in legs Time Seen by Provider: 10/07/21 21:37 Source: patient, RN notes reviewed Mode of arrival: ambulatory Limitations: no limitations - History of Present Illness Initial comments: Patient is a pleasant 26-year-old male presenting to the emergency department with concern for swellings of right greater than left legs. Patient state this mostly occurs in the joints, ankle greater than feet greater than knees. No upper extremity involvement. Right greater than left side. No fever. No erythema. No trauma. No history of similar symptoms previously. Discomfort does increase with movement, especially walking. - Related Data Previous Rx's Medication Instructions Recorded Albuterol Inhaler (Mhu) [Ventolin 1 - 2 puff INHALATION Q4HR PRN #1 10/01/18 Hfa Inhaler (Mhu)] inhaler Ibuprofen [Motrin] 600 mg PO Q8HR PRN #24 tab 10/01/18 Ibuprofen [Motrin] 600 mg PO Q6HR PRN #20 tab 10/08/21 Allergies Allergy/AdvReac Type Severity Reaction Status Date / Time coconut AdvReac Itching Verified 10/07/21 18:25 Review of Systems ROS Statement: Those systems with pertinent positive or pertinent negative responses have been documented in the HPI. ROS Other: All systems not noted in ROS Statement are negative. Constitutional: Denies: fever Eyes: Denies: eye pain ENT: Denies: ear pain Respiratory: Denies: cough Cardiovascular: Denies: chest pain Endocrine: Denies: fatigue Gastrointestinal: Denies: abdominal pain Genitourinary: Denies: dysuria Musculoskeletal: Reports: as per HPI, joint swelling, arthralgia. Denies: back pain Skin: Denies: rash, lesions Neurological: Denies: headache Past Medical History Past Medical History: No Reported History History of Any Multi-Drug Resistant Organisms: None Reported Past Surgical History: Orthopedic Surgery Additional Past Surgical History / Comment(s): right elbow Past Anesthesia/Blood Transfusion Reactions: No Reported Reaction Past Psychological History: Anxiety, Bipolar Smoking Status: Current every day smoker, Vaper Past Alcohol Use History: Occasional Past Drug Use History: Marijuana - Past Family History Father Additional Family Medical History / Comment(s): no known hx General Exam Limitations: no limitations General appearance: alert, in no apparent distress Head exam: Present: atraumatic Eye exam: Present: normal appearance Neck exam: Present: normal inspection Respiratory exam: Present: normal lung sounds bilaterally Cardiovascular Exam: Present: regular rate, normal rhythm GI/Abdominal exam: Present: soft. Absent: tenderness Extremities exam: Present: other (Minimal swelling of the right leg, mostly at the ankle with moderate tenderness. There is mild to moderate tenderness and swelling right foot. Mild tenderness left foot and left ankle. Minimal tenderness bilateral knees.). Absent: calf tenderness Neurological exam: Present: alert Psychiatric exam: Present: normal affect, normal mood Skin exam: Present: normal color. Absent: erythema Course Vital Signs 10/07/21 10/07/21 18:25 22:55 Temperature 97.6 F Pulse Rate 106 H 87 Respiratory 18 20 Rate Blood Pressure 124/61 116/76 O2 Sat by Pulse 98 99 Oximetry Medical Decision Making - Medical Decision Making Patient reevaluated and updated. Patient made aware need for close follow-up and possible rheumatology referral. - Lab Data Result diagrams: 10/07/21 22:55 10/07/21 22:55 Lab Results 10/07/21 10/07/21 Range/Units 22:55 22:55 WBC 13.5 H (3.8-10.6) k/uL RBC 4.95 (4.30-5.90) m/uL Hgb 14.0 (13.0-17.5) gm/dL Hct 42.9 (39.0-53.0) % MCV 86.8 (80.0-100.0) fL MCH 28.4 (25.0-35.0) pg MCHC 32.7 (31.0-37.0) g/dL RDW 13.5 (11.5-15.5) % Plt Count 381 (150-450) k/uL MPV 6.6 Neutrophils % 68 % Lymphocytes % 21 % Monocytes % 6 % Eosinophils % 3 % Basophils % 0 % Neutrophils # 9.1 H (1.3-7.7) k/uL Lymphocytes # 2.9 (1.0-4.8) k/uL Monocytes # 0.8 (0-1.0) k/uL Eosinophils # 0.4 (0-0.7) k/uL Basophils # 0.1 (0-0.2) k/uL Sodium 138 (137-145) mmol/L Potassium 4.1 (3.5-5.1) mmol/L Chloride 104 (98-107) mmol/L Carbon Dioxide 28 (22-30) mmol/L Anion Gap 6 mmol/L BUN 9 (9-20) mg/dL Creatinine 0.68 (0.66-1.25) mg/dL Est GFR (CKD-EPI)AfAm >90 (>60 ml/min/1.73 sqM) Est GFR (CKD-EPI)NonAf >90 (>60 ml/min/1.73 sqM) Glucose 70 L (74-99) mg/dL Uric Acid 5.2 (3.5-8.5) mg/dL Calcium 8.6 (8.4-10.2) mg/dL Total Bilirubin 0.3 (0.2-1.3) mg/dL AST 22 (17-59) U/L ALT 24 (4-49) U/L Alkaline Phosphatase 79 (38-126) U/L C-Reactive Protein 4.4 H (<1.0) mg/dL Total Protein 6.3 (6.3-8.2) g/dL Albumin 3.5 (3.5-5.0) g/dL - Radiology Data Radiology results: report reviewed (Bilateral lower extremity ultrasound negative for DVT) Disposition Clinical Impression: Polyarthralgia Disposition: HOME SELF-CARE Condition: Stable Instructions (If sedation given, give patient instructions): Arthralgia (ED) Additional Instructions: Please follow-up with primary care physician in the next day or 2 for recheck, numbers have been provided. 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 Return for fevers, increased pain or swelling, worsening symptoms or other concerns. Prescription for anti-inflammatories have been sent to pharmacy. Prescriptions: Ibuprofen [Motrin] 600 mg PO Q6HR PRN #20 tab PRN Reason: Pain Is patient prescribed a controlled substance at d/c from ED?: No Referrals: Simon Caraballo MD [STAFF PHYSICIAN] - 1-2 days Brett Enamorado MD [STAFF PHYSICIAN] - 1-2 days Time of Disposition: 00:13
[2021-10-07 22:57] VITALS: RESP 20
--- NOTE | 2021-10-07 23:01 | US ---
EXAMINATION TYPE: US venous doppler duplex LE DATE OF EXAM: 10/07/2021 10:37 PM COMPARISON: NONE CLINICAL HISTORY: swelling. Bilateral leg pain and swelling SIDE PERFORMED: Bilateral TECHNIQUE: The lower extremity deep venous system is examined utilizing real time linear array sonog mable with graded compression, doppler sonography and color-flow sonography. VESSELS IMAGED: Common Femoral Vein Deep Femoral Vein Greater Saphenous Vein * Femoral Vein Popliteal Vein Small Saphenous Vein * Proximal Calf Veins (* superficial vessels) Right Leg: Negative for DVT Left Leg: Negative for DVT IMPRESSION: No evidence of deep vein thrombosis in both legs.
[2021-10-07 23:13] LABS: Basophils # (A) 0.1 k/uL (0-0.2); Basophils % (A) 0 %; Eosinophils # (A) 0.4 k/uL (0-0.7); Eosinophils % (A) 3 %; HCT 42.9 % (39.0-53.0); Lymphocytes # (A) 2.9 k/uL (1.0-4.8); Lymphocytes % (A) 21 %; MCH 28.4 pg (25.0-35.0); MCHC 32.7 g/dL (31.0-37.0); MCV 86.8 fL (80.0-100.0); Mean Platelet Volume 6.6; Monocytes # (A) 0.8 k/uL (0-1.0); Monocytes % (A) 6 %; Neutrophils # (A) 9.1 k/uL (1.3-7.7); Neutrophils % (A) 68 %; Platelet Count 381 k/uL (150-450); RBC 4.95 m/uL (4.30-5.90); RDW 13.5 % (11.5-15.5); WBC 13.5 k/uL (3.8-10.6)
[2021-10-07 23:28] LABS: Potassium 4.1 mmol/L (3.5-5.1)
[2021-10-07 23:29] LABS: ALT 24 U/L (4-49); AST 22 U/L (17-59); African American GFR (CKD) >90 (>60 ml/min/1.73 sqM); Albumin 3.5 g/dL (3.5-5.0); Alkaline Phosphatase 79 U/L (38-126); Anion Gap 6 mmol/L; Blood Urea Nitrogen 9 mg/dL (9-20); C Reactive Protein 4.4 mg/dL (<1.0); Calcium 8.6 mg/dL (8.4-10.2); Carbon Dioxide 28 mmol/L (22-30); Chloride 104 mmol/L (98-107); Glucose 70 mg/dL (74-99); Non-African American GFR(CKD) >90 (>60 ml/min/1.73 sqM); Sodium 138 mmol/L (137-145); Total Bilirubin 0.3 mg/dL (0.2-1.3); Total Protein 6.3 g/dL (6.3-8.2); Uric Acid 5.2 mg/dL (3.5-8.5)
[2021-10-08] MEDS ORDERED: KETOROLAC 15 MG/ML 1 ML VIAL IVP STA (00:11)
[2021-10-08 00:28] VITALS: BP 115/66; PULSE 83; TEMP 98
[2021-10-08 00:35] LABS: Erythrocyte Sedimentation Rate 17 mm/hr (0-15)
[2021-10-08 09:10] LABS: Rheumatoid Factor, Qnt <10 IU/mL (0-15)
[2021-10-09 14:53] LABS: Lyme IgG/IgM 0.06 Index
== END 2021-10-08 00:28 | disposition home or self-care (01) ==
LOC: EC 17:07
DX: M25.572 Pain in left ankle and joints of left foot (principal); M25.571 Pain in right ankle and joints of right foot; F17.290 Nicotine dependence, other tobacco product, uncomplicated; F12.90 Cannabis use, unspecified, uncomplicated; Z79.51 Long term (current) use of inhaled steroids
CPT/HCPCS: 36415 ×2; 80053; 85652; 84550; 85025; 86140; 86431; 86618; 86038; 93970; 99284; 96374; 96376; J1885 ×2

== ENCOUNTER 2022-06-26 12:10 | Emergency (ER) | payer OTHER ==
[2022-06-26 12:53] VITALS: RESP 18; TEMP 97.6
[2022-06-26] MEDS ORDERED: KETOROLAC 15 MG/ML 1 ML VIAL IM STA (13:24)
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
--- NOTE | 2022-06-26 14:04 | XR ---
EXAMINATION TYPE: XR knee complete LT DATE OF EXAM: 06/26/2022 CLINICAL HISTORY: pain TECHNIQUE: Three views of the left knee are obtained. COMPARISON: None. FINDINGS: There is no acute fracture/dislocation. The tri-compartment joint spaces appear within no rmal limits. The overlying soft tissue appears unremarkable. IMPRESSION: There is no acute fracture or dislocation ICD 10 NO FRACTURE, INITIAL EVALUATION
--- NOTE | 2022-06-26 14:05 | XR ---
EXAMINATION TYPE: XR lumbar spine 2 or 3V DATE OF EXAM: 06/26/2022 CLINICAL HISTORY: pain TECHNIQUE: Three views of the lumbar spine are submitted. COMPARISON: None. FINDINGS: There are 5 lumbar type vertebral bodies identified. The lumbar spine shows satisfactory alignment w ithout evidence of acute fracture or dislocation. Vertebral body heights are within normal limits. Disc spaces are within normal limits. The overlying soft tissue appears unremarkable. IMPRESSION: No acute fracture or dislocation is seen in the lumbar spine. ICD 10 NO FRACTURE, INITIAL EVALUATION
[2022-06-26 14:22] VITALS: BP 99/69; PULSE 80
== END 2022-06-26 14:22 | disposition home or self-care (01) ==
LOC: EC 12:10
DX: S39.012A Strain of muscle, fascia and tendon of lower back, initial encounter (principal); F41.9 Anxiety disorder, unspecified; F31.9 Bipolar disorder, unspecified; F17.200 Nicotine dependence, unspecified, uncomplicated; F17.290 Nicotine dependence, other tobacco product, uncomplicated; F12.90 Cannabis use, unspecified, uncomplicated; Z91.018 Allergy to other foods; X58.XXXA Exposure to other specified factors, initial encounter; Y93.I9 Activity, other involving external motion; Y92.410 Unspecified street and highway as the place of occurrence of the external cause
CPT/HCPCS: 99283; 96372; 72100; 73562; J1885

== ENCOUNTER 2022-12-05 18:53 | Emergency (ER) | payer OTHER ==
[2022-12-05 19:00] VITALS: BP 122/70; PULSE 92; RESP 18; TEMP 99
[2022-12-05] MEDS ORDERED: SODIUM CHLORIDE 0.9% 1,000 ML IV STA (19:06)
--- NOTE | 2022-12-05 19:55 | ED ---
General Adult HPI - General Chief complaint: Nausea/Vomiting/Diarrhea Stated complaint: Abd pain Time Seen by Provider: 12/05/22 19:02 Source: patient Mode of arrival: ambulatory Limitations: no limitations - History of Present Illness Initial comments: Patient is a 27-year-old male presents to the emergency department for diarrhea. Patient reports 4-5 episodes of diarrhea daily, watery, nonbloody. He also reports pain in his left abdomen. No nausea or vomiting. No fever or chills. Denies cold-like symptoms. Denies history of C. diff. No recent antibiotic use or travel. No chest pain or shortness of breath. Patient reports occasional alcohol use. He reports daily marijuana use. - Related Data Previous Rx's Medication Instructions Recorded Albuterol Inhaler [Ventolin Hfa 1 - 2 puff INHALATION Q4HR PRN #1 10/01/18 Inhaler] inhaler Ibuprofen [Motrin] 600 mg PO Q8HR PRN #24 tab 10/01/18 Ibuprofen [Motrin] 600 mg PO Q6HR PRN #20 tab 10/08/21 Ibuprofen [Motrin] 800 mg PO Q8HR PRN #30 tab 12/05/22 Allergies Allergy/AdvReac Type Severity Reaction Status Date / Time coconut AdvReac Itching Verified 12/05/22 18:57 Review of Systems ROS Statement: Those systems with pertinent positive or pertinent negative responses have been documented in the HPI. ROS Other: All systems not noted in ROS Statement are negative. Past Medical History Past Medical History: No Reported History History of Any Multi-Drug Resistant Organisms: None Reported Past Surgical History: Orthopedic Surgery Additional Past Surgical History / Comment(s): right elbow Past Anesthesia/Blood Transfusion Reactions: No Reported Reaction Past Psychological History: Anxiety, Bipolar Smoking Status: Current every day smoker, Vaper Past Alcohol Use History: Occasional Past Drug Use History: Marijuana - Past Family History Father Additional Family Medical History / Comment(s): no known hx General Exam Limitations: no limitations General appearance: alert, in no apparent distress Head exam: Present: atraumatic, normocephalic, normal inspection Eye exam: Present: normal appearance, PERRL, EOMI. Absent: scleral icterus, conjunctival injection, periorbital swelling Respiratory exam: Present: normal lung sounds bilaterally. Absent: respiratory distress, wheezes, rales, rhonchi, stridor Cardiovascular Exam: Present: regular rate, normal rhythm, normal heart sounds. Absent: systolic murmur, diastolic murmur, rubs, gallop, clicks GI/Abdominal exam: Present: soft, tenderness (LLQ), normal bowel sounds. Absent: distended, guarding, rebound, rigid Neurological exam: Present: alert, oriented X3, CN II-XII intact Psychiatric exam: Present: normal affect, normal mood Skin exam: Present: warm, dry, intact, normal color. Absent: rash Course Vital Signs 12/05/22 18:58 Temperature 99.0 F Pulse Rate 92 Respiratory 18 Rate Blood Pressure 122/70 O2 Sat by Pulse 96 Oximetry Medical Decision Making - Medical Decision Making Was pt. sent in by a medical professional or institution (Dr. PA, MANAGER MOLECULAR, urgent care, hospital, or assisted...) When possible be specific @ -No Did you speak to anyone other than the patient for history (EMS, parent, family, police, friend...)? What history was obtained from this source @ -No Did you review nursing and triage notes (agree or disagree)? Why? @ -I reviewed and agree with nursing and triage notes Were old charts reviewed (outside hosp., previous admission, EMS record, old EKG, old radiological studies, urgent care reports/EKG's, assisted records)? Report findings @ -No old charts were reviewed Differential Diagnosis (chest pain, altered mental status, abdominal pain women, abdominal pain men, vaginal bleeding, weakness, fever, dyspnea, syncope, headache, dizziness, GI bleed, back pain, seizure, CVA, palpatations, mental health)? @ Differential Abdominal Pain Men: Appendicitis, cholecystitis, diverticulosis, ischemic bowel, pancreatitis, hepatitis, UTI, gastroenteritis, AAA, incarcerated hernia, bowel obstruction, constipation, inflammatory bowel, hepatitis, peptic ulcer disease, splenic infarction, perforated viscus, testicular torsion, this is not meant to be an all-inclusive list EKG interpreted by me (3pts min.). @ -As above X-rays interpreted by me (1pt min.). @ -None done CT interpreted by me (1pt min.). @ -None done U/S interpreted by me (1pt. min.). @ -None done What testing was considered but not performed or refused? (CT, X-rays, U/S, labs)? Why? @ -Ordered lab work for abdominal pain with diarrhea however patient refused. He also refuses repeat vital signs. What meds were considered but not given or refused? Why? @ -[None] Did you discuss the management of the patient with other professionals (professionals i.e. , PA, MANAGER MOLECULAR, lab, RT, psych nurse, licensed clinical social worker, country manager, teacher, penal officer, watch caser)? Give summary @ -[No] Was smoking cessation discussed for >3mins.? @ -[No] Was critical care preformed (if so, how long)? @ -[No] Were there social determinants of health that impacted care today? How? (Homelessness, low income, unemployed, alcoholism, drug addiction, transportation, low edu. Level, literacy, decrease access to med. care, senior care, rehab)? @ -[No] Was there de-escalation of care discussed even if they declined (Discuss DNR or withdrawal of care, Hospice)? DNR status @ -[No] What co-morbidities impacted this encounter? (DM, HTN, Smoking, COPD, CAD, Cancer, CVA, ARF, Chemo, Hep., AIDS, mental health diagnosis, sleep apnea, morbid obesity)? @ -[None] Was patient admitted / discharged? Hospital course, mention meds given and route, prescriptions, significant lab abnormalities, going to OR and other pertinent info. @ -Patient presenting with abdominal pain and diarrhea. Vitals within normal limits. The abdomen is soft and mildly tender in LLQ. Laboratory studies were ordered however patient refused. He also refuse repeat vital signs. CT of the abdomen and pelvis with contrast obtained which shows stable prominence of mesenteric lymph nodes and stable gastrointestinal lipoma otherwise no acute process. Results discussed with patient based on limited testing, vitals, physical exam, patient stable medical condition for discharge Undiagnosed new problem with uncertain prognosis? @ -[No] Drug Therapy requiring intensive monitoring for toxicity (Heparin, Nitro, Insulin, Cardizem)? @ -[No] Were any procedures done? @ -[No] Diagnosis/symptom? @ -All pain, diarrhea Acute, or Chronic, or Acute on Chronic? @ -Acute Uncomplicated (without systemic symptoms) or Complicated (systemic symptoms)? @ -Uncomplicated Side effects of treatment? @ -[No] Exacerbation, Progression, or Severe Exacerbation? @ -[No] Poses a threat to life or bodily function? How? (Chest pain, [place], [place], pneumonia, PE, COPD, DKA, ARF, appy, cholecystitis, CVA, Diverticulitis, Homicidal, Suicidal, threat to staff... and all critical care pts) @ -[No] Dr. West is my attending Disposition Clinical Impression: Abdominal pain, Diarrhea Disposition: HOME SELF-CARE Condition: Good Additional Instructions: Take medication as directed. Please follow-up with your primary care provider in 1-2 days. Return to the emergency department if you experience new, concerning, or worsening symptoms. Prescriptions: Ibuprofen [Motrin] 800 mg PO Q8HR PRN #30 tab PRN Reason: Pain Is patient prescribed a controlled substance at d/c from ED?: No Referrals: None,Stated [Primary Care Provider] - 1-2 days
--- NOTE | 2022-12-05 20:10 | CT ---
EXAMINATION TYPE: CT abdomen pelvis w con CT DLP: 1241.3 mGycm, Automated exposure control for dose reduction was used. DATE OF EXAM: 12/05/2022 7:52 PM COMPARISON: CT abdomen pelvis most recent from 08/07/2021 CLINICAL INDICATION:Male, 27 years old with history of pain diarrhea; Diarrhea x 3 days TECHNIQUE: Axial CT of the abdomen and pelvis. Sagittal and coronal reformats were created on a [employer] workstation. Contrast used:100 cc mL of Isovue 370 with IV Contrast, Oral contrast used: without Oral Contrast FINDINGS: LOWER CHEST: Unremarkable ABDOMEN LIVER: Unremarkable GALLBLADDER AND BILE DUCTS: Unremarkable. PANCREAS: Unremarkable. SPLEEN: Unremarkable. ADRENAL GLANDS: Unremarkable. KIDNEYS AND URETERS: No evidence of hydronephrosis or renal calculus. The ureters are unremarkable. PELVIS BLADDER: Unremarkable REPRODUCTIVE: Unremarkable. ABDOMEN & PELVIS STOMACH AND BOWEL: No evidence of bowel obstruction. Redemonstration of fat-containing lesion within the sigmoid colon which appears to conform to the bowel lumen sanchez. This measures approximately 4.3 x 3.7 cm. Scattered colonic diverticulosis. The appendix is normal. The small bowel does not demonstr ate thickened sanchez but there is multiple prominent lymph nodes within the mesentery of the small bow el. PERITONEUM/RETROPERITONEUM: No evidence of pneumoperitoneum or free fluid. VASCULATURE: No evidence of aortic aneurysm. MUSCULOSKELETAL: No acute osseous abnormalities LYMPH NODES: No gross evidence for lymphadenopathy. Stable appearance of the prominent mesenteric lym ph nodes. SOFT TISSUE/ABDOMINAL WALL: Unremarkable IMPRESSION: 1. Prominent mesenteric lymph nodes which were present on prior be reactive due to enteritis. 2. 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 Finding was present on prior. 3. Few scattered colonic diverticula. 4. No obstructive uropathy or renal calculus. 5. Normal appendix.
== END 2022-12-05 21:04 | disposition home or self-care (01) ==
LOC: EC 18:53
DX: R10.32 Left lower quadrant pain (principal); R19.7 Diarrhea, unspecified; F17.290 Nicotine dependence, other tobacco product, uncomplicated; F12.90 Cannabis use, unspecified, uncomplicated; Z91.018 Allergy to other foods
CPT/HCPCS: 99284 ×2; 96360 ×2; 74177; Q9967

== ENCOUNTER 2022-12-17 17:17 | Emergency (ER) | payer BC, OTHER ==
[2022-12-17 17:55] VITALS: BP 125/78; PULSE 80; RESP 18; TEMP 98.3
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
--- NOTE | 2022-12-17 19:54 | XR ---
EXAMINATION TYPE: XR elbow complete LT DATE OF EXAM: 12/17/2022 COMPARISON: None HISTORY: Pain TECHNIQUE: 3 view left elbow FINDINGS: Radius aligns normally with the humerus. Anterior fat pad is normal. No elevation of the po sterior fat pad is evident. No acute fracture or dislocation is evident. Follow up exams can be performed 7-10 days from acute trauma for continued pain IMPRESSION: 1. No acute osseous abnormality left elbow
--- NOTE | 2022-12-17 20:31 | XR ---
EXAMINATION TYPE: XR hand complete LT DATE OF EXAM: 12/17/2022 COMPARISON: None HISTORY: Pain third metacarpal TECHNIQUE: Three-view left hand FINDINGS: No acute fracture or dislocation is evident. Soft tissues appear normal. Follow up exams can be performed 7-10 days from acute trauma for continued pain. IMPRESSION: 1. No acute osseous abnormality left hand
== END 2022-12-17 19:58 | disposition home or self-care (01) ==
LOC: EC 17:17
DX: S50.12XA Contusion of left forearm, initial encounter (principal); F17.290 Nicotine dependence, other tobacco product, uncomplicated; F12.90 Cannabis use, unspecified, uncomplicated; Z91.018 Allergy to other foods; W22.8XXA Striking against or struck by other objects, initial encounter; Y92.009 Unspecified place in unspecified non-institutional (private) residence as the place of occurrence of the external cause
CPT/HCPCS: 99283

== ENCOUNTER 2023-06-08 12:59 | Emergency (ER) | payer BC, OTHER ==
--- NOTE | 2023-06-08 14:30 | ED ---
General Adult HPI - General Chief complaint: Urogenital Stated complaint: male part issues Time Seen by Provider: 06/08/23 13:37 Source: patient Mode of arrival: ambulatory Limitations: no limitations - History of Present Illness Initial comments: 27-year-old non-sexually active male presenting to the ED with a chief complaint of rash. Patient states yesterday started to notice burning and redness to the tip of his penis. No discharge. Denies urinary symptoms. Reports continued pain and itchiness with redness to the tip of his penis. No abdominal pain. No changes in bowel habits. No chest pain or shortness of breath. No other complaints. - Related Data Previous Rx's Medication Instructions Recorded Albuterol Inhaler [Ventolin Hfa 1 - 2 puff INHALATION Q4HR PRN #1 10/01/18 Inhaler] inhaler Ibuprofen [Motrin] 600 mg PO Q8HR PRN #24 tab 10/01/18 Ibuprofen [Motrin] 600 mg PO Q6HR PRN #20 tab 10/08/21 Ibuprofen [Motrin] 800 mg PO Q8HR PRN #30 tab 12/05/22 Allergies Allergy/AdvReac Type Severity Reaction Status Date / Time coconut AdvReac Itching Verified 06/08/23 13:11 Review of Systems ROS Statement: Those systems with pertinent positive or pertinent negative responses have been documented in the HPI. ROS Other: All systems not noted in ROS Statement are negative. Past Medical History Past Medical History: No Reported History History of Any Multi-Drug Resistant Organisms: None Reported Past Surgical History: Orthopedic Surgery Additional Past Surgical History / Comment(s): right elbow Past Anesthesia/Blood Transfusion Reactions: No Reported Reaction Past Psychological History: Anxiety, Bipolar Smoking Status: Current every day smoker, Vaper Past Alcohol Use History: Occasional Past Drug Use History: Marijuana - Past Family History Father Additional Family Medical History / Comment(s): no known hx General Exam Limitations: no limitations General appearance: alert Neck exam: Present: normal inspection Respiratory exam: Present: normal lung sounds bilaterally Cardiovascular Exam: Present: regular rate, normal rhythm GI/Abdominal exam: Present: soft External exam: Present: other (Circumcized. Erythema around the glans of the penis.) Neurological exam: Present: alert, oriented X3 Skin exam: Present: warm, dry Course Vital Signs 06/08/23 13:09 Temperature 98.3 F Pulse Rate 85 Respiratory 16 Rate Blood Pressure 130/78 O2 Sat by Pulse 98 Oximetry Medical Decision Making - Medical Decision Making Was pt. sent in by a medical professional or institution ([facility], [facility], urgent care, hospital, or [facility]...) When possible be specific @ -No Did you speak to anyone other than the patient for history (EMS, parent, family, police, friend...)? What history was obtained from this source @ -No Did you review nursing and triage notes (agree or disagree)? Why? @ -I reviewed and agree with nursing and triage notes Were old charts reviewed (outside hosp., previous admission, EMS record, old EKG, old radiological studies, urgent care reports/EKG's, [facility] records)? Report findings @ -No old charts were reviewed Differential Diagnosis (chest pain, altered mental status, abdominal pain women, abdominal pain men, vaginal bleeding, weakness, fever, dyspnea, syncope, headache, dizziness, GI bleed, back pain, seizure, CVA, palpatations, mental health, musculoskeletal)? @ -Gonorrhea, chlamydia, syphilis, chancroid. This not meant to be an all- inclusive list. EKG interpreted by me (3pts min.). @ -None X-rays interpreted by me (1pt min.). @ -None done CT interpreted by me (1pt min.). @ -None done U/S interpreted by me (1pt. min.). @ -None done What testing was considered but not performed or refused? (CT, X-rays, U/S, labs)? Why? @ -None What meds were considered but not given or refused? Why? @ -None Did you discuss the management of the patient with other professionals (professionals i.e. [facility], [employer], lab, RT, psych nurse, social service agency director, nursing clerk, teacher, tactical deception plans officer, insurance case manager)? Give summary @ -No Was smoking cessation discussed for >3mins.? @ -No Was critical care preformed (if so, how long)? @ -No Were there social determinants of health that impacted care today? How? (Homelessness, low income, unemployed, alcoholism, drug addiction, transportation, low edu. Level, literacy, decrease access to med. care, [facility], rehab)? @ -No Was there de-escalation of care discussed even if they declined (Discuss DNR or withdrawal of care, Hospice)? DNR status @ -No What co-morbidities impacted this encounter? (DM, HTN, Smoking, COPD, CAD, Cancer, CVA, ARF, Chemo, Hep., AIDS, mental health diagnosis, sleep apnea, morbid obesity)? @ -None Was patient admitted / discharged? Hospital course, mention meds given and route, prescriptions, significant lab abnormalities, going to OR and other pertinent info. @ -Discharge 27-year-old male presenting with rash to the head of the penis. Exam does appear consistent with fungal balanitis. Patient provided prescription for Clotrimazole and advised follow-up with PCP. At this time, patient is not having any dysuria or discharge and reports that he is not sexually active. No concerns for STDs at this time. Discharged home in stable condition. Discussed return precautions patient verbalizes agreement. Undiagnosed new problem with uncertain prognosis? @ -No Drug Therapy requiring intensive monitoring for toxicity (Heparin, Nitro, Insulin, Cardizem)? @ -No Were any procedures done? @ -No Diagnosis/symptom? @ -Balanitis Acute, or Chronic, or Acute on Chronic? @ -Acute Uncomplicated (without systemic symptoms) or Complicated (systemic symptoms)? @ -Uncomplicated Side effects of treatment? @ -No Exacerbation, Progression, or Severe Exacerbation? @ -No Poses a threat to life or bodily function? How? (Chest pain, [place], [place], pneumonia, PE, COPD, DKA, ARF, appy, cholecystitis, CVA, Diverticulitis, Homicidal, Suicidal, threat to staff... and all critical care pts) @ -No Disposition Clinical Impression: Balanitis Disposition: HOME SELF-CARE Condition: Good Instructions (If sedation given, give patient instructions): Balanitis (ED) Additional Instructions: Please return to the Emergency Department if symptoms worsen or any other concerns. Follow up with your PCP. Is patient prescribed a controlled substance at d/c from ED?: No Referrals: None,Stated [Primary Care Provider] - 1-2 days Time of Disposition: 14:36
[2023-06-08 15:14] VITALS: BP 121/72; PULSE 67; RESP 18; TEMP 98.1
[2023-06-08] MEDS ORDERED: CLOTRIMAZOLE 1% CREAM 30 GM TUBE TOPICAL SCH (21:00)
== END 2023-06-08 14:58 | disposition home or self-care (01) ==
LOC: EC 12:59
DX: N48.1 Balanitis (principal); F17.290 Nicotine dependence, other tobacco product, uncomplicated; F12.90 Cannabis use, unspecified, uncomplicated; Z86.59 Personal history of other mental and behavioral disorders
CPT/HCPCS: 99283

== ENCOUNTER 2023-07-04 17:00 | Emergency (ER) | payer BC ==
[2023-07-04 17:37] VITALS: TEMP 99.3
[2023-07-04] MEDS ORDERED: cefTRIAXone 1,000 MG VIAL (IM USE) IM STA (20:42)
[2023-07-04] MEDS ORDERED: metroNIDAZOLE 500 MG TAB PO STA (20:42)
[2023-07-04] MEDS ORDERED: DOXYCYCLINE 100 MG CAP PO SCH (21:00)
--- NOTE | 2023-07-04 21:49 | ED ---
General Adult HPI - General Chief complaint: Skin/Abscess/Foreign Body Stated complaint: urogenital Time Seen by Provider: 07/04/23 19:23 Source: patient, RN notes reviewed Mode of arrival: ambulatory Limitations: no limitations - History of Present Illness Initial comments: 27-year-old male with no significant past medical history presents the emergency department with a chief complaint of penile rash. Patient was seen and evaluated here in May 2023 for the same. He was provided Motrin or wrist. He reports no resolution or improvement of symptoms. The rash is not itchy or painful. He denies any penile discharge or testicular swelling. Reports no sexual activity for the last 6 months. He is going to have STD prophylactic treatment - Related Data Previous Rx's Medication Instructions Recorded Albuterol Inhaler [Ventolin Hfa 1 - 2 puff INHALATION Q4HR PRN #1 10/01/18 Inhaler] inhaler Ibuprofen [Motrin] 600 mg PO Q8HR PRN #24 tab 10/01/18 Ibuprofen [Motrin] 600 mg PO Q6HR PRN #20 tab 10/08/21 Ibuprofen [Motrin] 800 mg PO Q8HR PRN #30 tab 12/05/22 Clotrimazole [Lotrimin AF] 1 applic TOPICAL BID #24 gm 06/08/23 Doxycycline [Vibramycin] 100 mg PO BID #28 capsule 07/04/23 Allergies Allergy/AdvReac Type Severity Reaction Status Date / Time coconut AdvReac Itching Verified 06/08/23 13:11 Review of Systems ROS Statement: Those systems with pertinent positive or pertinent negative responses have been documented in the HPI. ROS Other: All systems not noted in ROS Statement are negative. Past Medical History Past Medical History: No Reported History History of Any Multi-Drug Resistant Organisms: None Reported Past Surgical History: Orthopedic Surgery Additional Past Surgical History / Comment(s): right elbow Past Anesthesia/Blood Transfusion Reactions: No Reported Reaction Past Psychological History: Anxiety, Bipolar Smoking Status: Current every day smoker, Vaper Past Alcohol Use History: Occasional Past Drug Use History: Marijuana - Past Family History Father Additional Family Medical History / Comment(s): no known hx General Exam - General Exam Comments Initial Comments: General: Alert, in no acute distress Head: atraumatic normocephalic. Eyes PERRL, EOMI intact, mucous membranes moist Respiratory: Lungs clear to auscultation bilaterally Cardiovascular: Regular rate and rhythm Abdominal: Soft without guarding or rebound Extremities: Normal inspection with full range of motion and normal capillary refill Neuroogic: alert and oriented 3, CN II-XII intact, able to ambulate with steady gait Skin: warm dry and intact with normal color : Penile exam performed was treated, SKULL SPLITTER present in the room. Foreskin of the penis with redness. No drainage. Nontender. No pointing. No flaking Limitations: no limitations Course Vital Signs 07/04/23 17:14 Temperature 99.3 F Pulse Rate 84 Respiratory 16 Rate Blood Pressure 116/71 O2 Sat by Pulse 96 Oximetry Medical Decision Making - Medical Decision Making Was pt. sent in by a medical professional or institution (, [facility], urgent care, hospital, or penitentiary...) When possible be specific @ -[No] Did you speak to anyone other than the patient for history (EMS, parent, family, police, friend...)? What history was obtained from this source @ -[No] Did you review nursing and triage notes (agree or disagree)? Why? @ -[I reviewed and agree with nursing and triage notes] Were old charts reviewed (outside hosp., previous admission, EMS record, old EKG, old radiological studies, urgent care reports/EKG's, penitentiary records)? Report findings @ -06/08/2023 Differential Diagnosis (chest pain, altered mental status, abdominal pain women, abdominal pain men, vaginal bleeding, weakness, fever, dyspnea, syncope, headache, dizziness, GI bleed, back pain, seizure, CVA, palpatations, mental health, musculoskeletal)? @ -[not applicable] EKG interpreted by me (3pts min.). @ -[As above] X-rays interpreted by me (1pt min.). @ -[None done] CT interpreted by me (1pt min.). @ -[None done] U/S interpreted by me (1pt. min.). @ -[None done] What testing was considered but not performed or refused? (CT, X-rays, U/S, labs)? Why? @ -[None] What meds were considered but not given or refused? Why? @ -[None] Did you discuss the management of the patient with other professionals (professionals i.e. , PA, RIGGING HELPER, lab, RT, psych nurse, high school social studies tutor, manager green, teacher, corporation officer, major case detective)? Give summary @ -[No] Was smoking cessation discussed for >3mins.? @ -[No] Was critical care preformed (if so, how long)? @ -[No] Were there social determinants of health that impacted care today? How? (Homelessness, low income, unemployed, alcoholism, drug addiction, transportation, low edu. Level, literacy, decrease access to med. care, group home, rehab)? @ -[No] Was there de-escalation of care discussed even if they declined (Discuss DNR or withdrawal of care, Hospice)? DNR status @ -[No] What co-morbidities impacted this encounter? (DM, HTN, Smoking, COPD, CAD, Cancer, CVA, ARF, Chemo, Hep., AIDS, mental health diagnosis, sleep apnea, morbid obesity)? @ -[None] Was patient admitted / discharged? Hospital course, mention meds given and route, prescriptions, significant lab abnormalities, going to OR and other pertinent info. @ -Charts. This is a pleasant 27-year-old male who presents the emergency department with penile rash. Physical exam reveals mild erythema to the tip in the foreskin of the penis. It is nontender. Foreskin easily retractable. Patient will be prophylactically treated with doxycycline, Rocephin and Flagyl. Patient will be given triamcinolone and nystatin cream to apply to the area. Recommend close follow-up with dermatology. Patient provided listed primary care physicians in the area. Discharged in stable condition. Undiagnosed new problem with uncertain prognosis? @ -[No] Drug Therapy requiring intensive monitoring for toxicity (Heparin, Nitro, Insulin, Cardizem)? @ -[No] Were any procedures done? @ -[No] Diagnosis/symptom? @ -Penis Rash Acute, or Chronic, or Acute on Chronic? @ -Acute Uncomplicated (without systemic symptoms) or Complicated (systemic symptoms)? @ -Uncomplicated Side effects of treatment? @ -[No] Exacerbation, Progression, or Severe Exacerbation? @ -[No] Poses a threat to life or bodily function? How? (Chest pain, [place], [place], pneumonia, PE, COPD, DKA, ARF, appy, cholecystitis, CVA, Diverticulitis, Homicidal, Suicidal, threat to staff... and all critical care pts) @ -Low likelihood Disposition Clinical Impression: Penile rash Disposition: HOME SELF-CARE Instructions (If sedation given, give patient instructions): Sexually Transmitted Diseases (ED), Balanitis (ED) Additional Instructions: Please apply cream to the affected area Please return to the nearest emergency department if spreading of rash Prescriptions: Doxycycline [Vibramycin] 100 mg PO BID #28 capsule Is patient prescribed a controlled substance at d/c from ED?: No Referrals: None,Stated [Primary Care Provider] - 1-2 days Ewa Chowdary MD [STAFF PHYSICIAN] - 1-2 days Forms: Area PCPs Time of Disposition: 21:48
[2023-07-04] MEDS ORDERED: NYSTAT-TRIAMCIN 100,000-0.1 UNIT/GM-% OINT 30 GM TUBE TOPICAL SCH (22:00)
[2023-07-04] MEDS ORDERED: NYSTATIN 100,000 UNIT/GM OINT 30 GM TUBE TOPICAL SCH (22:00)
[2023-07-04] MEDS ORDERED: TRIAMCINOLONE ACET 0.1% OINTMENT 15 GM TUBE TOPICAL SCH (22:00)
[2023-07-04 22:03] VITALS: BP 128/82; PULSE 75; RESP 18
== END 2023-07-04 22:27 | disposition home or self-care (01) ==
LOC: EC 17:00
DX: R21 Rash and other nonspecific skin eruption (principal); F12.90 Cannabis use, unspecified, uncomplicated; F17.200 Nicotine dependence, unspecified, uncomplicated; Z86.59 Personal history of other mental and behavioral disorders; Z91.018 Allergy to other foods
CPT/HCPCS: 36415; 87491; 87591; 86780; 99283; 96372; J0696

== ENCOUNTER 2024-07-11 11:45 | Emergency (ER) | payer BC, OTHER ==
[2024-07-11 12:19] VITALS: BP 123/85; PULSE 86; RESP 18; TEMP 97.7
--- NOTE | 2024-07-11 12:33 | ED ---
Back Pain HPI - General Source: patient, RN notes reviewed Mode of arrival: ambulatory Limitations: no limitations - History of Present Illness MD Complaint: back pain <Christa Landers - Last Filed: 07/11/24 12:31> - General Source: patient, RN notes reviewed, old records reviewed Mode of arrival: ambulatory Limitations: no limitations - History of Present Illness Complaint: back pain, other (Pain abdominal pain) -: hour(s) Similar Symptoms Previously: Yes Place: home Radiation: none Severity: moderate Severity scale (1-10): 6 Quality: sharp Consistency: constant Improves With: none Associated Symptoms: denies other symptoms <Tarik Barker - Last Filed: 07/17/24 22:20> - General Chief Complaint: Back Pain/Injury Stated Complaint: rib pain Time Seen by Provider: 07/11/24 12:20 - History of Present Illness Initial Comments: Quick Note: This is a 28-year-old male who presents to the emergency department for left-sided back pain and chest pain. States that for the last month he has had worsening pain in the left upper back going into the left chest. States that he is now having difficulty breathing and pain moving more into the chest. Denies any injuries or history of similar symptoms in the past. (Christa Landers) This is a 28-year-old male for left-sided back pain and chest pain, patient states his pain is severe especially with movement. Positive nausea no vomiting (Tarik Barker) - Related Data Previous Rx's Medication Instructions Recorded Albuterol Inhaler [Ventolin Hfa 1 - 2 puff INHALATION Q4HR PRN #1 10/01/18 Inhaler] inhaler Ibuprofen [Motrin] 600 mg PO Q8HR PRN #24 tab 10/01/18 Ibuprofen [Motrin] 600 mg PO Q6HR PRN #20 tab 10/08/21 Ibuprofen [Motrin] 800 mg PO Q8HR PRN #30 tab 12/05/22 Clotrimazole [Lotrimin AF] 1 applic TOPICAL BID #24 gm 06/08/23 Doxycycline [Vibramycin] 100 mg PO BID #28 capsule 07/04/23 Allergies Allergy/AdvReac Type Severity Reaction Status Date / Time coconut AdvReac Itching Verified 07/11/24 12:20 Review of Systems ROS Other: All systems not noted in ROS Statement are negative. <Christa Landers - Last Filed: 07/11/24 12:31> ROS Other: All systems not noted in ROS Statement are negative. <Tarik Barker - Last Filed: 07/17/24 22:20> ROS Statement: Those systems with pertinent positive or pertinent negative responses have been documented in the HPI. Past Medical History Past Medical History: No Reported History History of Any Multi-Drug Resistant Organisms: None Reported Past Surgical History: Orthopedic Surgery Additional Past Surgical History / Comment(s): right elbow Past Anesthesia/Blood Transfusion Reactions: No Reported Reaction Past Psychological History: Anxiety, Bipolar Smoking Status: Vaper Past Alcohol Use History: None Reported, Occasional Past Drug Use History: None Reported, Marijuana - Past Family History Father Additional Family Medical History / Comment(s): no known hx <Christa Landers - Last Filed: 07/11/24 12:31> General Exam Limitations: no limitations <Christa Landers - Last Filed: 07/11/24 12:31> General appearance: alert, in no apparent distress Head exam: Present: atraumatic, normocephalic, normal inspection Eye exam: Present: normal appearance, PERRL, EOMI. Absent: scleral icterus, conjunctival injection, periorbital swelling ENT exam: Present: normal exam, mucous membranes moist Neck exam: Present: normal inspection. Absent: tenderness, meningismus, lymphadenopathy Respiratory exam: Present: normal lung sounds bilaterally. Absent: respiratory distress, wheezes, rales, rhonchi, stridor Cardiovascular Exam: Present: regular rate, normal rhythm, normal heart sounds. Absent: systolic murmur, diastolic murmur, rubs, gallop, clicks GI/Abdominal exam: Present: soft, tenderness, guarding, normal bowel sounds. Absent: distended, rebound, rigid Extremities exam: Present: normal inspection, full ROM, normal capillary refill. Absent: tenderness, pedal edema, joint swelling, calf tenderness Back exam: Present: normal inspection Neurological exam: Present: alert, oriented X3, CN II-XII intact Psychiatric exam: Present: normal affect, normal mood Skin exam: Present: warm, dry, intact, normal color. Absent: rash <Tarik Barker - Last Filed: 12/22/24 22:20> - General Exam Comments Initial Comments: Visual Physical Exam Vital signs reviewed General: Well-appearing, nontoxic, no acute distress. Head: Normocephalic, atraumatic Eyes: PERRLA, EOMI ENT: Airway patent Chest: Nonlabored breathing Skin: No visual rash, normal skin tone Neuro: Alert and oriented 3 Musculoskeletal: No gross abnormalities (Christa Landers) Course <Tarik Barker - Last Filed: 07/17/24 22:20> Vital Signs 07/11/24 12:16 Temperature 97.7 F Pulse Rate 86 Respiratory 18 Rate Blood Pressure 123/85 O2 Sat by Pulse 97 Oximetry - Reevaluation(s) Reevaluation #1: Medical records reviewed (Tarik Barker) Reevaluation #2: Patient symptoms unchanged (Tarik Barker) Reevaluation #3: Patient informed of results and questions answered (Tarik Barker) Reevaluation #4: Was pt. sent in by a medical professional or institution (, PA, SMALL PIECE CUTTER, urgent care, hospital, or residential...) When possible be specific @ -no Did you speak to anyone other than the patient for history (EMS, parent, family, police, friend...)? What history was obtained from this source @ -no Did you review nursing and triage notes (agree or disagree)? Why? @ -agree Are old charts reviewed (outside hosp., previous admission, EMS record, old EKG, old radiological studies, urgent care reports/EKG's, residential records)? Report findings @ -yes Differential Diagnosis (chest pain, altered mental status, abdominal pain women, abdominal pain men, vaginal bleeding, weakness, fever, dyspnea, syncope, headache, dizziness, GI bleed, back pain, seizure, CVA, palpatations, mental health, musculoskeletal)? @ -prior EKG interpreted by me (3pts min.). @ -yes X-rays interpreted by me (1pt min.). @ -yes negative for acute disease CT interpreted by me (1pt min.). @ -Yes positive for epiploic appendagitis U/S interpreted by me (1pt. min.). @ -no What testing was considered but not performed or refused? (CT, X-rays, U/S, labs)? Why? @ -none What meds were considered but not given or refused? Why? @ -none Did you discuss the management of the patient with other professionals (professionals i.e. , PA, SMALL PIECE CUTTER, lab, RT, psych nurse, director of social work, steel rule inspector, teacher, supply requirements officer, immigration case manager)? Give summary @ -no Was smoking cessation discussed for >3mins.? @ -no Was critical care preformed (if so, how long)? @ -no Were there social determinants of health that impacted care today? How? (Homelessness, low income, unemployed, alcoholism, drug addiction, transportation, low edu. Level, literacy, decrease access to med. care, assisted, rehab)? @ -none Was there de-escalation of care discussed even if they declined (Discuss DNR or withdrawal of care, Hospice)? DNR status @ -no What co-morbidities impacted this encounter? (DM, HTN, Smoking, COPD, CAD, Cancer, CVA, ARF, Chemo, Hep., AIDS, mental health diagnosis, sleep apnea, morbid obesity)? @ -none Was patient admitted / discharged? Hospital course, mention meds given and route, prescriptions, significant lab abnormalities, going to OR and other pertinent info. @ - 28 male to ER for evaluation abdominal pain, patient does have epiploic appendagitis, pain is controlled and patient can be discharged home Discharge Undiagnosed new problem with uncertain prognosis? @ -no Drug Therapy requiring intensive monitoring for toxicity (Heparin, Nitro, Insulin, Cardizem)? @ -no Were any procedures done? @ -no Diagnosis/symptom? @ -Mesenteric epiploic appendagitis Acute, or Chronic, or Acute on Chronic? @ -Acute Uncomplicated (without systemic symptoms) or Complicated (systemic symptoms)? @ -Complicated Side effects of treatment? @ -no Exacerbation, Progression, or Severe Exacerbation? @ -exacerbation Poses a threat to life or bodily function? How? (Chest pain, [place], [place], pneumonia, PE, COPD, DKA, ARF, appy, cholecystitis, CVA, Diverticulitis, Homicidal, Suicidal, threat to staff... and all critical care pts) @ -no (Tarik Barker) Reevaluation #5: Differential Abdominal Pain Men: Appendicitis, cholecystitis, diverticulosis, ischemic bowel, pancreatitis, hepatitis, UTI, gastroenteritis, AAA, incarcerated hernia, bowel obstruction, constipation, inflammatory bowel, hepatitis, peptic ulcer disease, splenic infarction, perforated viscus, testicular torsion, this is not meant to be an all-inclusive list (Tarik Barker) Medical Decision Making <Christa Landers - Last Filed: 07/11/24 12:31> - Lab Data Result diagrams: 07/11/24 12:37 07/11/24 12:37 - EKG Data -: EKG Interpreted by Me (Sinus 86 UT 149 QRS 82 QTc 402) - Radiology Data Radiology results: report reviewed (CT abdomen pelvis positive for mesenteric adenitis), image reviewed <Tarik Barker - Last Filed: 07/17/24 22:20> - Medical Decision Making I performed the QuickNote portion of this chart. Signed Christa Landers PA-C. (Christa Landers) 28 male to ER for evaluation abdominal pain, patient does have epiploic appendagitis, pain is controlled and patient can be discharged home (Tarik Barker) - Lab Data Lab Results 07/11/24 07/11/24 07/11/24 Range/Units 12:37 12:37 12:37 WBC 10.0 (3.8-10.6) k/uL RBC 5.26 (4.30-5.90) m/uL Hgb 15.2 (13.0-17.5) gm/dL Hct 44.9 (39.0-53.0) % MCV 85.3 (80.0-100.0) fL MCH 28.9 (25.0-35.0) pg MCHC 33.8 (31.0-37.0) g/dL RDW 13.5 (11.5-15.5) % Plt Count 282 (150-450) k/uL MPV 6.9 Neutrophils % 60 % Lymphocytes % 29 % Monocytes % 4 % Eosinophils % 6 % Basophils % 1 % Neutrophils # 5.9 (1.3-7.7) k/uL Lymphocytes # 2.9 (1.0-4.8) k/uL Monocytes # 0.4 (0-1.0) k/uL Eosinophils # 0.6 (0-0.7) k/uL Basophils # 0.1 (0-0.2) k/uL D-Dimer 0.30 (<0.60) mg/L FEU Sodium (137-145) mmol/L Potassium (3.5-5.1) mmol/L Chloride (98-107) mmol/L Carbon Dioxide (22-30) mmol/L Anion Gap mmol/L BUN (9-20) mg/dL Creatinine (0.66-1.25) mg/dL Est GFR (CKD-EPI)AfAm (>60 ml/min/1.73 sqM) Est GFR (CKD-EPI)NonAf (>60 ml/min/1.73 sqM) Glucose (74-99) mg/dL Calcium (8.4-10.2) mg/dL Total Bilirubin (0.2-1.3) mg/dL AST (17-59) U/L ALT (4-49) U/L Alkaline Phosphatase (38-126) U/L Troponin I (0.000-0.034) ng/mL Total Protein (6.3-8.2) g/dL Albumin (3.5-5.0) g/dL Lipase (23-300) U/L Urine Color Colorless Urine Appearance Clear (Clear) Urine pH 5.5 (5.0-8.0) Ur Specific [place] 1.018 (1.001-1.035) Urine Protein Negative (Negative) Urine Glucose (UA) Negative (Negative) Urine Ketones Negative (Negative) Urine Blood Small H (Negative) Urine Nitrite Negative (Negative) Urine Bilirubin Negative (Negative) Urine Urobilinogen <2.0 (<2.0) mg/dL Ur Leukocyte Esterase Negative (Negative) Urine RBC <1 (0-5) /hpf Urine WBC <1 (0-5) /hpf Ur Squamous Epith Cells <1 (0-4) /hpf Urine Mucus Rare H (None) /hpf Influenza Type A (PCR) (Not Detectd) Influenza Type B (PCR) (Not Detectd) RSV (PCR) (Not Detectd) SARS-CoV-2 (PCR) (Not Detectd) 07/11/24 07/11/24 07/11/24 Range/Units 12:37 12:37 18:34 WBC (3.8-10.6) k/uL RBC (4.30-5.90) m/uL Hgb (13.0-17.5) gm/dL Hct (39.0-53.0) % MCV (80.0-100.0) fL MCH (25.0-35.0) pg MCHC (31.0-37.0) g/dL RDW (11.5-15.5) % Plt Count (150-450) k/uL MPV Neutrophils % % Lymphocytes % % Monocytes % % Eosinophils % % Basophils % % Neutrophils # (1.3-7.7) k/uL Lymphocytes # (1.0-4.8) k/uL Monocytes # (0-1.0) k/uL Eosinophils # (0-0.7) k/uL Basophils # (0-0.2) k/uL D-Dimer (<0.60) mg/L FEU Sodium 138 (137-145) mmol/L Potassium 3.8 (3.5-5.1) mmol/L Chloride 108 H (98-107) mmol/L Carbon Dioxide 23 (22-30) mmol/L Anion Gap 7 mmol/L BUN 15 (9-20) mg/dL Creatinine 0.74 (0.66-1.25) mg/dL Est GFR (CKD-EPI)AfAm >90 (>60 ml/min/1.73 sqM) Est GFR (CKD-EPI)NonAf >90 (>60 ml/min/1.73 sqM) Glucose 153 H (74-99) mg/dL Calcium 9.2 (8.4-10.2) mg/dL Total Bilirubin 0.5 (0.2-1.3) mg/dL AST 35 (17-59) U/L ALT 36 (4-49) U/L Alkaline Phosphatase 72 (38-126) U/L Troponin I <0.012 (0.000-0.034) ng/mL Total Protein 6.9 (6.3-8.2) g/dL Albumin 4.2 (3.5-5.0) g/dL Lipase 94 (23-300) U/L Urine Color Urine Appearance (Clear) Urine pH (5.0-8.0) Ur Specific [place] (1.001-1.035) Urine Protein (Negative) Urine Glucose (UA) (Negative) Urine Ketones (Negative) Urine Blood (Negative) Urine Nitrite (Negative) Urine Bilirubin (Negative) Urine Urobilinogen (<2.0) mg/dL Ur Leukocyte Esterase (Negative) Urine RBC (0-5) /hpf Urine WBC (0-5) /hpf Ur Squamous Epith Cells (0-4) /hpf Urine Mucus (None) /hpf Influenza Type A (PCR) Not Detected (Not Detectd) Influenza Type B (PCR) Not Detected (Not Detectd) RSV (PCR) Not Detected (Not Detectd) SARS-CoV-2 (PCR) Not Detected (Not Detectd) Disposition <Christa Landers - Last Filed: 07/11/24 12:31> Is patient prescribed a controlled substance at d/c from ED?: No Time of Disposition: 20:00 <Tarik Barker - Last Filed: 07/17/24 22:20> Clinical Impression: Left flank pain, Abdominal pain Disposition: HOME SELF-CARE Condition: Good Instructions (If sedation given, give patient instructions): Abdominal Pain (ED) Referrals: None,Stated [Primary Care Provider] - 1-2 days
[2024-07-11 14:13] LABS: Basophils # (A) 0.1 k/uL (0-0.2); Basophils % (A) 1 %; Eosinophils # (A) 0.6 k/uL (0-0.7); Eosinophils % (A) 6 %; HCT 44.9 % (39.0-53.0); HGB 15.2 gm/dL (13.0-17.5); Lymphocytes # (A) 2.9 k/uL (1.0-4.8); Lymphocytes % (A) 29 %; MCH 28.9 pg (25.0-35.0); MCHC 33.8 g/dL (31.0-37.0); MCV 85.3 fL (80.0-100.0); Mean Platelet Volume 6.9; Monocytes # (A) 0.4 k/uL (0-1.0); Monocytes % (A) 4 %; Neutrophils # (A) 5.9 k/uL (1.3-7.7); Neutrophils % (A) 60 %; Platelet Count 282 k/uL (150-450); RBC 5.26 m/uL (4.30-5.90); RDW 13.5 % (11.5-15.5)
[2024-07-11 14:26] LABS: ALT 36 U/L (4-49); African American GFR (CKD) >90 (>60 ml/min/1.73 sqM); Albumin 4.2 g/dL (3.5-5.0); Anion Gap 7 mmol/L; Blood Urea Nitrogen 15 mg/dL (9-20); Calcium 9.2 mg/dL (8.4-10.2); Carbon Dioxide 23 mmol/L (22-30); Chloride 108 mmol/L (98-107); Glucose 153 mg/dL (74-99); Lipase 94 U/L (23-300); Non-African American GFR(CKD) >90 (>60 ml/min/1.73 sqM); Sodium 138 mmol/L (137-145); Total Bilirubin 0.5 mg/dL (0.2-1.3); Total Protein 6.9 g/dL (6.3-8.2)
[2024-07-11 14:27] LABS: Potassium 3.8 mmol/L (3.5-5.1)
[2024-07-11 14:28] LABS: AST 35 U/L (17-59); Alkaline Phosphatase 72 U/L (38-126)
[2024-07-11 14:41] LABS: Appearance,Urine Clear (Clear); Bilirubin,Urine Negative (Negative); Blood,Urine Small (Negative); Color,Urine Colorless; Glucose,Urine (UA) Negative (Negative); Ketones,Urine Negative (Negative); Leukocyte Esterase,Urine Negative (Negative); Mucus,Urine Rare /hpf; Nitrite,Urine Negative (Negative); PH, Urine 5.5 (5.0-8.0); Protein,Urine Negative (Negative); RBC,Urine <1 /hpf (0-5); Specific Gravity,Urine 1.018 (1.001-1.035); Squamous Epithelial Cell,Urine <1 /hpf (0-4); Urobilinogen,Urine <2.0 mg/dL (<2.0); WBC,Urine <1 /hpf (0-5)
--- NOTE | 2024-07-11 15:22 | XR ---
EXAMINATION TYPE: XR chest 2V DATE OF EXAM: 07/11/2024 3:16 PM COMPARISON: Chest radiographs from 10/01/2018 CLINICAL INDICATION: Male, 28 years old with history of Chest pain; [facility] TECHNIQUE: XR chest 2V Frontal and lateral views of the chest. FINDINGS: Lungs/Pleura: There is no evidence of pleural effusion, focal consolidation, or pneumothorax. Pulmonary vascularity: Unremarkable. Heart/mediastinum: Cardiomediastinal silhouette is unremarkable. Musculoskeletal: No acute osseous pathology. IMPRESSION: No acute cardiopulmonary disease/process. [facility], , 07/11/2024 3:20 PM
--- NOTE | 2024-07-11 19:50 | CT ---
EXAMINATION TYPE: CT abdomen pelvis wo con CT DLP: 1291.4 mGycm, Automated exposure control for dose reduction was used. DATE OF EXAM: 07/11/2024 6:54 PM COMPARISON: CT abdomen pelvis 12/05/2022 . CLINICAL INDICATION:Male, 28 years old with history of pain; Rt side rib/flank pain. TECHNIQUE: Axial CT abdomen pelvis wo con;Sagittal and coronal reformats were created on a separate workstation. Contrast used: mL of , (none if empty) Oral contrast used: without Oral Contrast (none if empty) FINDINGS: LOWER CHEST: Stable 4 mm subpleural left lower lobe pulmonary nodule. ABDOMEN LIVER: Unremarkable GALLBLADDER AND BILE DUCTS: Unremarkable. PANCREAS: Unremarkable. SPLEEN: Unremarkable. ADRENAL GLANDS: Unremarkable. KIDNEYS AND URETERS: No evidence of hydronephrosis or renal calculus. The ureters are unremarkable. PELVIS BLADDER: Incompletely distended but grossly unremarkable. REPRODUCTIVE: Unremarkable. ABDOMEN & PELVIS STOMACH AND BOWEL: Stomach is grossly unremarkable. The small bowel is of normal caliber.There is red emonstration of a fat-containing lesion within the sigmoid colon measuring at least 3.7 x 2.4 cm. Krystle endix is within normal limits. No evidence of bowel obstruction. PERITONEUM/RETROPERITONEUM: No evidence of pneumoperitoneum or free fluid. VASCULATURE: No evidence of aortic aneurysm. MUSCULOSKELETAL: No acute osseous abnormalities LYMPH NODES: Multiple scattered lymph nodes are seen within the mid abdominal mesentery with the most conspicuous of these measuring up to at least 9 mm. Nonenlarged lymph nodes are seen in the bilatera l inguinal region. SOFT TISSUE/ABDOMINAL WALL: Tiny fat filled umbilical hernia IMPRESSION: 1. No acute intra-abdominal/pelvic process. 2. Redemonstration of mid abdominal mesenteric lymphadenopathy may be reactive versus mesenteric jyothi itis. Consider short-term follow up to rule out lymphoproliferative disease. 3. Redemonstrated sigmoid colon lipoma. [facility], , 07/11/2024 7:47 PM
[2024-07-11] MEDS: KETOROLAC 15 MG/ML 1 ML VIAL IVP STA (20:13)
[2024-07-11] MEDS: SODIUM CHLORIDE 0.9% 500 ML 500 ML IV STA (20:13)
== END 2024-07-11 20:15 | disposition home or self-care (01) ==
LOC: EC 11:45
DX: K65.9 Peritonitis, unspecified (principal); F17.290 Nicotine dependence, other tobacco product, uncomplicated; Z91.018 Allergy to other foods
CPT/HCPCS: 36415; 71046; 74176; 80053; 81001; 83690; 84484; 85025; 85379; 87636; 93005; 99284